=== PATIENT | female | born 1945 | race Caucasian/White ===

== ENCOUNTER → 2020-05-06 | Outpatient (CLI) | payer MEDICARE ==
--- NOTE | 2020-05-06 17:06 | RADIOLOGY REPORT (SQ) ---
EXAM DESCRIPTION: FOOT RIGHT COMPLETE IMAGES COMPLETED DATE/TIME: 05/06/2020 4:39 pm REASON FOR STUDY: CHRONIC MULTIFOCAL OSTEOMYELITIS, RIGHT ANKLE AND FOOT M86.371 CHRONIC MULTIFOCAL OSTEOMYELITIS, RIGHT ANKLE AND FO COMPARISON: None. NUMBER OF VIEWS: Three views. TECHNIQUE: AP, lateral and oblique radiographic images acquired of the right foot. LIMITATIONS: None. FINDINGS: MINERALIZATION: Normal. BONES: No acute fracture or dislocation. No worrisome bone lesions. JOINTS: There appear to be Charcot joints in the tarsal bones. There are some areas of heterogeneous mineralization in the base of the 5th metatarsal and in the cuboid. SOFT TISSUES: No soft tissue swelling. No foreign body. OTHER: No other significant finding. IMPRESSION: Cannot exclude osteomyelitis in the 5th metatarsal and possibly the cuboid. Joint goldberg es in the tarsal bones. TECHNICAL DOCUMENTATION: JOB ID: [id number] 2010 [employer]- All Rights Reserved Reading location - IP/workstation name: [email or web address]
== END ==
LOC: OD 16:06
PROVIDERS: ATTEND Podiatrist Foot & Ankle Surgery
DX: M86.371 Chronic multifocal osteomyelitis, right ankle and foot (principal)

== ENCOUNTER → 2020-05-13 | Outpatient (CLI) | payer MEDICARE ==
[2020-05-13 12:28] LABS: ABSOLUTE BASOPHILS # (AUTO) 0.1 10^3/uL (0.0-0.2); ABSOLUTE EOSINOPHILS # (AUTO) 0.1 10^3/uL (0.0-0.6); ABSOLUTE LYMPHOCYTES (AUTO) 1.1 10^3/uL (0.5-4.7); ABSOLUTE MONOCYTES (AUTO) 0.5 10^3/uL (0.1-1.4); ABSOLUTE NEUT (AUTO) 6.8 10^3/uL (1.7-8.2); BASOPHILS % (AUTO) 0.6 % (0-2); EOSINOPHILS % (AUTO) 0.9 % (0-6); HEMATOCRIT 37.7 % (36.0-47.0); HEMOGLOBIN 13.2 g/dL (12.0-15.5); LYMPHOCYTES % (AUTO) 13.2 % (13-45); MEAN CORPUSCULAR HEMOGLOBIN 30.5 pg (27.0-33.4); MEAN CORPUSCULAR VOLUME 87 fl (80-97); MONOCYTES % (AUTO) 6.2 % (3-13); PLATELET COUNT 270 10^3/uL (150-450); RED BLOOD COUNT 4.33 10^6/uL (3.72-5.28); RED CELL DISTRIBUTION WIDTH 12.8 % (11.5-14.0); SEGMENTED NEUTROPHILS % (AUTO) 79.1 % (42-78); TOTAL CELLS COUNTED % (AUTO) 100 %; WHITE BLOOD COUNT 8.6 10^3/uL (4.0-10.5)
[2020-05-13 12:48] LABS: ALBUMIN 4.3 g/dL (3.5-5.0); ALKALINE PHOSPHATASE 118 U/L (38-126); ANION GAP 11 (5-19); ASPARTATE AMINO TRANSFERASE 25 U/L (14-36); BILIRUBIN,DIRECT 0.3 mg/dL (0.0-0.4); BILIRUBIN,TOTAL 0.5 mg/dL (0.2-1.3); BLOOD UREA NITROGEN 29 mg/dL (7-20); CALCIUM 9.8 mg/dL (8.4-10.2); CARBON DIOXIDE 26 mmol/L (22-30); CHLORIDE 103 mmol/L (98-107); GLUCOSE 157 mg/dL (75-110); POTASSIUM 4.3 mmol/L (3.6-5.0); TOTAL PROTEIN 7.8 g/dL (6.3-8.2)
[2020-05-13 13:05] LABS: ERYTHROCYTE SEDIMENTATION RATE 51 mm/hr (0-30)
== END ==
LOC: WC 11:25
PROVIDERS: ATTEND Preventive Medicine Undersea and Hyperbaric Medicine
DX: E11.621 Type 2 diabetes mellitus with foot ulcer (principal); L97.512 Non-pressure chronic ulcer of other part of right foot with fat layer exposed
CPT/HCPCS: 36415; 80053; 83036; 85025; 85652; 86140

== ENCOUNTER → 2020-05-28 | Outpatient (CLI) | payer MEDICARE ==
[2020-05-28 09:25] LABS: ALBUMIN 4.2 g/dL (3.5-5.0); ALKALINE PHOSPHATASE 103 U/L (38-126); ANION GAP 9 (5-19); ASPARTATE AMINO TRANSFERASE 22 U/L (14-36); BILIRUBIN,DIRECT 0.3 mg/dL (0.0-0.4); BILIRUBIN,TOTAL 0.6 mg/dL (0.2-1.3); BLOOD UREA NITROGEN 30 mg/dL (7-20); CALCIUM 9.9 mg/dL (8.4-10.2); CARBON DIOXIDE 27 mmol/L (22-30); CHLORIDE 102 mmol/L (98-107); CHOLESTEROL 154.92 mg/dL (0-200); GLUCOSE 113 mg/dL (75-110); POTASSIUM 4.2 mmol/L (3.6-5.0); TOTAL PROTEIN 7.5 g/dL (6.3-8.2); TRIGLYCERIDES 61 mg/dL (<150)
[2020-05-28 09:36] LABS: DIRECT LDL 45 mg/dL (<100)
[2020-05-28 09:39] LABS: FREE T4 (FREE THYROXINE) 1.48 ng/dL (0.78-2.19)
[2020-05-28 09:53] LABS: THYROID STIMULATING HORMONE 2.1 uIU/mL (0.47-4.68)
== END ==
LOC: OD 08:03
PROVIDERS: ATTEND Physician Assistant
DX: E11.69 Type 2 diabetes mellitus with other specified complication (principal); E55.9 Vitamin D deficiency, unspecified; E78.2 Mixed hyperlipidemia; E03.9 Hypothyroidism, unspecified
CPT/HCPCS: 36415; 80053; 80061; 82306; 84439; 84443; 84681

== ENCOUNTER → 2020-05-31 | Outpatient (CLI) | payer MEDICARE ==
--- NOTE | 2020-05-31 16:41 | RADIOLOGY REPORT (SQ) ---
EXAM DESCRIPTION: ARTERIAL LOWER EXTREM BILAT IMAGES COMPLETED DATE/TIME: 05/31/2020 2:46 pm REASON FOR STUDY: RT FOOT ULCER L97.512 NON-PRS CHRONIC ULCER OTH PRT RIGHT FOOT W FAT LAYER COMPARISON: None. TECHNIQUE: Dynamic and static mittal scale and color images acquired of the lower extremity arteries. Additional selected spectral images recorded. ABIs recorded. LIMITATIONS: None. FINDINGS: RIGHT LEG: ABIS: 0.89-1.07 INFLOW ARTERIES: Normal, no obstruction evident. FEMORAL ARTERIES:Common femoral artery demonstrates triphasic waveform. Profunda origin is patent wi th multiphasic flow. Femoral artery demonstrates multiphasic waveform. There is a area of increased velocity within the mid SFA with elevated velocity of 234 cm/sec suggestive of 50 to 74% stenosis.. Additional area of increased velocity within the distal SFA of 171 cm/sec suggestive of approximately 50% stenosis. No aneurysm. POPLITEAL ARTERY:Biphasic waveform without high-grade stenosis.. No aneurysm. PATENT TIBIOPERONEAL TRUNK AND 3 VESSEL RUNOFF: Tibioperoneal trunk is patent. Anterior tibial arter y is patent with biphasic waveform. No focal stenosis. Monophasic flow within the dorsalis pedis. TBI: Not performed. OTHER: No other significant finding. LEFT LEG: ABIS: 1.25-1.34 possibly falsely elevated due to vessel calcification. INFLOW ARTERIES: Normal, no obstruction evident. FEMORAL ARTERIES:Common femoral artery demonstrates biphasic inflow. Profunda origin is patent. SFA demonstrates biphasic waveform with area of increased velocity within the distal SFA of 201 cm/sec s uggestive of less than 50% stenosis.. No aneurysm. POPLITEAL ARTERY:Patent with multiphasic waveform. No high-grade stenosis.. No aneurysm. PATENT TIBIOPERONEAL TRUNK AND 3 VESSEL RUNOFF: Tibioperoneal trunk is patent. Multiphasic tibial ru noff without high-grade stenosis. Multiphasic dorsalis pedis. TBI: Not performed. OTHER: No other significant finding. IMPRESSION: Right: 1. Triphasic inflow. ABIs 0.89-1.07. 2. 2 areas of stenosis within the mid and distal femoral artery with velocity of 234 cm/sec suggesti ve of 50 to 74% stenosis. 3. Biphasic distal runoff. Left: 1. Multiphasic inflow. ABIs greater than 1. 2. Elevated velocity within the distal SFA suggestive of less than 50% stenosis. 3. Multiphasic distal runoff. COMMENT: COUNT INCLUDES THE [facility] NORMAL: Greater than 1.0 MINIMAL DISEASE: 0.9 to 1.0 CLAUDICATION: 0.5 to 0.9 SEVERE ARTERIAL DISEASE: Less than 0.5 [facility] NORMAL: Greater than 1.0 (1.2 If Heavy Calcifications) NORMAL TO MILD ISCHEMIA: 0.8 to 1.0 MODERATE ISCHEMIA: 0.4 to 0.8 SEVERE ISCHEMIA: Less than 0.4 TECHNICAL DOCUMENTATION: JOB ID: [id number] 2010 [employer]- All Rights Reserved Reading location - IP/workstation name: [email or web address]
--- NOTE | 2020-05-31 16:45 | RADIOLOGY REPORT (SQ) ---
EXAM DESCRIPTION: PHYSIO ARTERIAL LTD COMPLETE DATE/TIME: 05/31/2020 2:46 pm REASON FOR STUDY: RT FOOT ULCER L97.512 NON-PRS CHRONIC ULCER OTH PRT RIGHT FOOT W FAT LAYER FINDINGS: Please see combined report for radiologic interpretation. IMPRESSION: Please see combined report for radiologic interpretation. Reading location - IP/workstation name: [email or web address]
== END ==
LOC: SP 12:49
PROVIDERS: ATTEND Preventive Medicine Undersea and Hyperbaric Medicine
DX: L97.512 Non-pressure chronic ulcer of other part of right foot with fat layer exposed (principal); I70.202 Unspecified atherosclerosis of native arteries of extremities, left leg; I70.291 Other atherosclerosis of native arteries of extremities, right leg
CPT/HCPCS: 93922; 93925

== ENCOUNTER 2020-06-14 07:18 | Inpatient (IN) | payer MEDICARE ==
[2020-06-14] MEDS ORDERED: DEXTROSE 50%-WATER 25 GM/50 ML DISP.SYRIN IV ONE ×8 (07:26→18:57)
--- NOTE | 2020-06-14 07:35 | ER Document Report ---
ED Medical Screen (RME) - General Chief Complaint: Low Blood Sugar Stated Complaint: LOW BLOOD SUGAR Time Seen by Provider: 06/14/20 07:29 Primary Care Provider: PRADIP FONG PA-C [Primary Care Provider] - Follow up as needed Notes: 74-year-old female comes from EMS from home where she was found down by roommate, patient found to have glucose in the 30s, given oral glucose on the way here, rechecked in the 100s, recheck here back down in the 50s. Patient is able to tell me her location but is unable to tell me the events. She has a history of diabetes and is on Lantus and Humalog. Physical Exam - Neurological Orientation: Disoriented to time, Disoriented to events. No: Disoriented to person, Disoriented to place [place] Coma Scale Eye Opening: Spontaneous Earlene Coma Scale Verbal: Confused Earlene Coma Scale Motor: Obeys Commands Earlene Coma Scale Total: 14 Course - Re-evaluation Re-evalutation: Patient is sluggish on my evaluation. She is able to answer questions and cooperate however. She has pinpoint pupils but she is not reportedly on opiates. Patient is hypothermic but this could be from the hypoglycemia. However because patient was given oral glucose and is immediately back down into the 50s patient will be given dextrose and work-up will be performed including cardiac and septic for potential other causes of hypoglycemia. GCS of 14. Triage level 2. I have greeted and performed a rapid initial assessment of this patient. A comprehensive ED assessment and evaluation of the patient, analysis of test results and completion of the medical decision making process will be conducted by additional ED providers. Doctor's Discharge - Discharge Referrals: PRADIP FONG PA-C [Primary Care Provider] - Follow up as needed
[2020-06-14 07:48] LABS: INTERNATIONAL RATION (INR) 1.01; PROTHROMBIN TIME 13.5 SEC (11.4-15.4)
[2020-06-14 07:52] LABS: VENOUS BLOOD BASE EXCESS -2.6 mmol/L; VENOUS BLOOD HCO3 25.9 mmol/L (20-32); VENOUS BLOOD PH 7.25 (7.30-7.42)
[2020-06-14 07:55] LABS: HEMOGLOBIN 13.7 g/dL (12.0-15.5); MEAN CORPUSCULAR HEMOGLOBIN 29.5 pg (27.0-33.4); MEAN CORPUSCULAR HGB CONC 33.4 g/dL (32.0-36.0); MEAN CORPUSCULAR VOLUME 88 fl (80-97); PLATELET COUNT 320 10^3/uL (150-450); RED BLOOD COUNT 4.65 10^6/uL (3.72-5.28); WHITE BLOOD COUNT 14.4 10^3/uL (4.0-10.5)
[2020-06-14 08:11] LABS: ALBUMIN 4.2 g/dL (3.5-5.0); ALKALINE PHOSPHATASE 116 U/L (38-126); ANION GAP 15 (5-19); ASPARTATE AMINO TRANSFERASE 36 U/L (14-36); BILIRUBIN,DIRECT 0.4 mg/dL (0.0-0.4); BILIRUBIN,TOTAL 0.7 mg/dL (0.2-1.3); BLOOD UREA NITROGEN 41 mg/dL (7-20); CALCIUM 10.5 mg/dL (8.4-10.2); CARBON DIOXIDE 24 mmol/L (22-30); CHLORIDE 100 mmol/L (98-107); CREATINE KINASE 104 U/L (30-135); POTASSIUM 3.4 mmol/L (3.6-5.0); TOTAL PROTEIN 7.8 g/dL (6.3-8.2)
[2020-06-14 08:18] LABS: ABSOLUTE LYMPHOCYTES# (MANUAL) 0.6 10^3/uL (0.5-4.7); ABSOLUTE MONOCYTES # (MANUAL) 0.7 10^3/uL (0.1-1.4); BASOPHILS % (MANUAL) 0 % (0-2); EOSINOPHILS % (MANUAL) 0 % (0-6); LYMPHOCYTES % (MANUAL) 4 % (13-45); MONOCYTES % (MANUAL) 5 % (3-13); SEGMENTED NEUTROPHILS % (MAN) 91 % (42-78); TOTAL CELLS COUNTED 100
[2020-06-14 08:21] LABS: GLUCOSE 36 mg/dL (75-110)
[2020-06-14 08:22] LABS: RBC MORPHOLOGY COMMENT NORMO-CYTIC/CHROMIC
[2020-06-14 08:24] LABS: APPEARANCE,URINE CLEAR; BILIRUBIN,URINE NEGATIVE (NEGATIVE); COLOR,URINE YELLOW; GLUCOSE, URINE 50 mg/dL (NEGATIVE); KETONES,URINE NEGATIVE (NEGATIVE); PROTEIN,URINE NEGATIVE (NEGATIVE); URINE SPECIFIC GRAVITY 1.012; UROBILINOGEN,URINE NEGATIVE mg/dL (<2.0)
[2020-06-14 08:24] LABS: PLATELET CLUMPS PRESENT
--- NOTE | 2020-06-14 08:24 | RADIOLOGY REPORT (SQ) ---
EXAM DESCRIPTION: CHEST SINGLE VIEW IMAGES COMPLETED DATE/TIME: 06/14/2020 8:15 am REASON FOR STUDY: hypothermia, syncopal episode COMPARISON: None. EXAM PARAMETERS: NUMBER OF VIEWS: One view. TECHNIQUE: Single frontal radiographic view of the chest acquired. RADIATION DOSE: NA LIMITATIONS: None. FINDINGS: LUNGS AND PLEURA: No opacities, masses or pneumothorax. No pleural effusion. MEDIASTINUM AND HILAR STRUCTURES: No masses. Contour normal. HEART AND VASCULAR STRUCTURES: Heart normal in size. Normal vasculature. BONES: No acute findings. HARDWARE: None in the chest. OTHER: No other significant finding. IMPRESSION: NO ACUTE RADIOGRAPHIC FINDING IN THE CHEST. TECHNICAL DOCUMENTATION: JOB ID: [id number] 2010 [employer]- All Rights Reserved Reading location - IP/workstation name: [email or web address]
[2020-06-14 08:25] LABS: PLATELET COMMENT ADEQUATE
[2020-06-14] MEDS ORDERED: ONDANSETRON HCL INJ/PF 4 MG/2 ML SDV IV ONE (08:30)
[2020-06-14] MEDS ORDERED: ONDANSETRON HCL INJ/PF 4 MG/2 ML SDV ONE (08:31)
--- NOTE | 2020-06-14 08:46 | RADIOLOGY REPORT (SQ) ---
EXAM DESCRIPTION: CT HEAD WITHOUT IMAGES COMPLETED DATE/TIME: 06/14/2020 8:32 am REASON FOR STUDY: fall, injury? COMPARISON: None. TECHNIQUE: Axial images acquired through the brain without intravenous contrast. Images reviewed wi th bone, brain and subdural windows. Additional sagittal and coronal reconstructions were generated. Images stored on PACS. All CT scanners at this facility use dose modulation, iterative reconstruction, and/or weight based d osing when appropriate to reduce radiation dose to as low as reasonably achievable (ALARA). [facility]: Dose Right [facility]: CareDose [facility]: Dose Right [facility]: Teradose 4D [facility]: [employer] RADIATION DOSE: CT Rad equipment meets quality standard of care and radiation dose reduction techniq ues were employed. CTDIvol: 53.2 mGy. DLP: 1017 mGy-cm. mGy. LIMITATIONS: None. FINDINGS: VENTRICLES: Age appropriate. CEREBRUM: No masses. No hemorrhage. No midline shift. No evidence for acute infarction. Normal gra y/white matter differentiation. No areas of low density in the white matter. CEREBELLUM: No masses. No hemorrhage. No alteration of density. No evidence for acute infarction. EXTRAAXIAL SPACES: No fluid collections. No masses. Mild involutional change. ORBITS AND GLOBE: No intra- or extraconal masses. Normal contour of globe without masses. CALVARIUM: No fracture. PARANASAL SINUSES: No fluid or mucosal thickening. SOFT TISSUES: No mass or hematoma. OTHER: No other significant finding. IMPRESSION: NO ACUTE INTRACRANIAL IMAGING FINDINGS. EVIDENCE OF ACUTE STROKE: NO. COMMENT: Quality ID # [id number]: Final reports with documentation of one or more dose reduction techniques (e.g., Automated exposure control, adjustment of the mA and/or kV according to patient size, use of iterative reconstruction technique) TECHNICAL DOCUMENTATION: JOB ID: [id number] 2010 [employer]- All Rights Reserved Reading location - IP/workstation name: [email or web address]
--- NOTE | 2020-06-14 08:51 | RADIOLOGY REPORT (SQ) ---
EXAM DESCRIPTION: CT CERVICAL SPINE WITHOUT IMAGES COMPLETED DATE/TIME: 06/14/2020 8:31 am REASON FOR STUDY: fall, injury? COMPARISON: None. TECHNIQUE: Axial images acquired through the cervical spine without intravenous contrast. Images re viewed with lung, soft tissue and bone windows. Reconstructed coronal and sagittal MPR images review ed. Images stored on PACS. All CT scanners at this facility use dose modulation, iterative reconstruction, and/or weight based d osing when appropriate to reduce radiation dose to as low as reasonably achievable (ALARA). [facility]: Dose Right [facility]: CareDose [facility]: Dose Right [facility]: Teradose 4D [facility]: [employer] RADIATION DOSE: CT Rad equipment meets quality standard of care and radiation dose reduction techniq ues were employed. CTDIvol: 17.0 mGy. DLP: 316 mGy-cm. mGy. LIMITATIONS: None. FINDINGS: ALIGNMENT: Exaggerated cervical lordosis. MINERALIZATION: Normal. VERTEBRAL BODIES: No fractures or dislocation. DISCS: Multilevel degenerative change with disc osteophyte complexes causing ezmy-qu-whzulmvs osseous canal narrowing, greatest at C4-5 and C5-6. FACETS, LATERAL MASSES, POSTERIOR ELEMENTS: No facet fracture dislocation. Uncovertebral hypertrophy with mild multilevel osseous neural foraminal narrowing. HARDWARE: None in the spine. VISUALIZED RIBS: No fractures. LUNG APICES AND SOFT TISSUES: No significant or acute findings. OTHER: No other significant finding. IMPRESSION: Mild multilevel degenerative change without evidence of acute bony abnormality of the ce rvical spine. TECHNICAL DOCUMENTATION: JOB ID: [id number] Quality ID # [id number]: Final reports with documentation of one or more dose reduction techniques (e.g., Au tomated exposure control, adjustment of the mA and/or kV according to patient size, use of iterative reconstruction technique) 2010 [employer]- All Rights Reserved Reading location - IP/workstation name: [email or web address]
[2020-06-14] MEDS ORDERED: IMIPENEM/CILASTATIN SODIUM INJ 500 MG VIAL IV ONE (08:57)
[2020-06-14] MEDS ORDERED: DEXTROSE 10%-1/4 NORMAL SALINE 250 ML IV ONE (09:08)
--- NOTE | 2020-06-14 09:29 | ER Document Report ---
ED General - General Chief Complaint: Low Blood Sugar Stated Complaint: LOW BLOOD SUGAR Time Seen by Provider: 06/14/20 07:29 Primary Care Provider: PRADIP FONG PA-C [Primary Care Provider] - Follow up as needed - [facility] Notes: Chief complaint: Altered mental status/syncope History of present illness: 74-year-old female with a history of diabetes mellitus type 2 and a chronic osteomyelitis of her right foot with a persistent ulceration of the plantar surface which has been treated by wound care clinic. Patient's roommates noted that she slept in a chair at a desk last night and apparently fell out of the chair this morning. They found her semiresponsive on the floor and called EMS for transport here. They note that patient has been "not herself" over the last several days. She is not eating and drinking and his seem mildly confused. Medical history is also remarkable for history of hypertension. She is followed by [facility] internal medicine. She is just relocated here from the [facility]. - Related Data Allergies/Adverse Reactions: bacitracin [From Neosporin ([id number])] Allergy (Verified 06/14/20 08:55) neomycin [From Neosporin ([id number]-tmu-vftdz)] Allergy (Verified 06/14/20 08:55) Penicillins Allergy (Verified 06/14/20 08:55) polymyxin B [From Neosporin ([id number]-gjl-[id number])] Allergy (Verified 06/14/20 08:55) Home Medications: atorvastatin. folic acid. humalog. lantus. magnesium oxide. prasugrel Past Medical History - General Information source: Patient, Friend, [facility] Records - Social History Smoking Status: Never Smoker Frequency of alcohol use: None Drug Abuse: None Lives with: Friend Family History: Reviewed & Not Pertinent - Past Medical History Cardiac Medical History: Reports: Hx Hypercholesterolemia, Hx Hypertension Endocrine Medical History: Reports: Hx Diabetes Mellitus Type 2 Past Surgical History: Reports: Hx Orthopedic Surgery - l foot amputation, r foot toes removal, Review of Systems - Review of Systems -: Yes ROS unobtainable due to patient's medical condition Physical Exam - Vital signs Vitals: Resp Pulse Ox 16 98 06/14/20 07:19 06/14/20 07:19 - Notes Notes: GENERAL: Frail elderly female appearing acutely and chronically ill. SKIN: Pale and cool. Good turgor no rashes. HEAD: Normocephalic atraumatic. EYES: PERRLA. EOMI. Conjunctivae and sclerae clear. EARS: CANALS AND TMS CLEAR. NOSE: CLEAR. MOUTH: Dry oral mucosa. Good dentition. No stridor or edema. No drooling. NECK: Supple. No masses or thyromegaly. No adenopathy. Carotids 2+ without bruits. No JVD. BACK: Symmetrical without tenderness. CHEST: Respirations unlabored. Breath sounds clear and symmetrical. HEART: Regular rhythm. No murmur gallop or rub. ABDOMEN: Soft nontender without masses, organomegaly or rebound. Bowel sounds normally active. No bruits. GENITALIA: Normal female. EXTREMITIES: Patient arrived with a cast on the right lower extremity this was removed. 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 Patient has shallow ulceration over the plantar surface of the right foot with some early drainage. Cap refill less than 1.5 seconds. Dorsalis pedis and posterior tibial pulses 3+ and symmetrical. NEUROLOGICAL: GCS 15. Alert and oriented x3. Normal gait. Fluent speech. Cranial nerves II through XII intact. Sensorimotor and cerebellar normal. Normal tone. PSYCHIATRIC: Appropriate affect. Course - Re-evaluation Re-evalutation: 06/14/20 10:49 Patient is mildly hypothermic, hypoglycemic altered mental status and clinically I felt she is likely to be septic. 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 This is felt the likely source of her infection. Chest x-ray normal. Urinalysis unremarkable. White count 14,000. Normal hemoglobin. X- ray shows no infiltrate. Patient had a fall at home and was found lying on the floor. We did a noncontrast CT of the C-spine which showed degenerative changes only per radiologist. She also had a noncontrast head which showed no acute changes per radiologist. Sepsis protocol has been initiated. Blood cultures drawn. 30 cc/kg lactated Ringer's bolus requested. Temperature Green inserted. IV imipenem. Findings reviewed with the on-call train director Dr. Gomez who will evaluate patient for admission to ICU at this time. - Vital Signs Vital signs: Temp Pulse Resp BP Pulse Ox 96.6 F L 11 L 86/28 L 94 06/14/20 12:01 06/14/20 12:01 06/14/20 12:00 06/14/20 12:01 - Laboratory Result Diagrams: 06/14/20 07:25 06/14/20 07:25 Laboratory results interpreted by me: 06/14/20 06/14/20 06/14/20 07:22 07:25 07:25 WBC 14.4 H Seg Neuts % (Manual) 91 H Lymphocytes % (Manual) 4 L Abs Neuts (Manual) 13.1 H VBG pH Potassium 3.4 L BUN 41 H Est GFR ( Amer) 51 L Est GFR (MDRD) Non-Af 42 L Glucose 36 L* POC Glucose 51 L Lactic Acid Calcium 10.5 H Urine Glucose (UA) Urine Blood 06/14/20 06/14/20 06/14/20 07:25 07:25 07:40 WBC Seg Neuts % (Manual) Lymphocytes % (Manual) Abs Neuts (Manual) VBG pH 7.25 L Potassium BUN Est GFR ( Amer) Est GFR (MDRD) Non-Af Glucose POC Glucose Lactic Acid 2.5 H Calcium Urine Glucose (UA) 50 H Urine Blood SMALL H 06/14/20 06/14/20 07:49 08:48 WBC Seg Neuts % (Manual) Lymphocytes % (Manual) Abs Neuts (Manual) VBG pH Potassium BUN Est GFR ( Amer) Est GFR (MDRD) Non-Af Glucose POC Glucose 146 H 45 L Lactic Acid Calcium Urine Glucose (UA) Urine Blood - Diagnostic Test Radiology reviewed: Reports reviewed - As indicated in comments above. - EKG Interpretation by Me Additional EKG results interpreted by me: 06/14/20 10:51 Twelve-lead EKG reviewed by me contemporaneously: 0754 hrs. Indication for study: Sepsis Rhythm: Normal sinus Rate: 61 Intervals: Normal QRS axis: -[address]/T wave changes: None Comparison with prior tracing: None Interpretation: Normal tracing Critical Care Note - Critical Care Note Total time excluding time spent on procedures (mins): 90 - Sepsis. Sepsis protocol initiated. Discharge - Discharge Clinical Impression: Sepsis associated hypotension, Diabetic foot infection Condition: Critical Disposition: ADMITTED INPATIENT Admitting Provider: Patricia (Peanut Farmer) Unit Admitted: ICU Referrals: PRADIP FONG PA-C [Primary Care Provider] - Follow up as needed
--- NOTE | 2020-06-14 09:40 | EKG REPORT ---
SEVERITY:- ABNORMAL ECG - SINUS RHYTHM PROBABLE LEFT VENTRICULAR HYPERTROPHY PROLONGED QT INTERVAL : Confirmed by: Sixto Malhotra MD 14-Jun-2020 09:40:14
[2020-06-14] MEDS ORDERED: METOCLOPRAMIDE HCL INJ/PF 10 MG/2 ML SDV IV ONE (09:44)
[2020-06-14] MEDS ORDERED: RINGERS LACTATED IV ONE (10:20)
--- NOTE | 2020-06-14 10:28 | RADIOLOGY REPORT (SQ) ---
EXAM DESCRIPTION: FOOT RIGHT COMPLETE IMAGES COMPLETED DATE/TIME: 06/14/2020 10:12 am REASON FOR STUDY: wound COMPARISON: 05/06/2020 NUMBER OF VIEWS: Three views. TECHNIQUE: AP, lateral and oblique radiographic images acquired of the right foot. LIMITATIONS: None. FINDINGS: MINERALIZATION: Decreased. BONES: No acute fracture. Significant degenerative changes about the midfoot with midfoot collapse, osteophytosis, subchondral sclerosis and joint space loss. Additional degenerative changes at the in terphalangeal joints. Small plantar and superior calcaneal enthesophytes. No definitive cortical de struction or osseous erosion. Unchanged dysmorphic proximal 4th phalanx. JOINTS: As above. SOFT TISSUES: Soft tissue vascular calcifications. No radiopaque foreign body. OTHER: No other significant finding. IMPRESSION: 1. No definite evidence of acute bony abnormality or definitive findings of osteomyelit is. 2. Midfoot collapse with significant degenerative changes suggestive of Charcot joint. TECHNICAL DOCUMENTATION: JOB ID: [id number] 2010 [employer]- All Rights Reserved Reading location - IP/workstation name: [email or web address]
[2020-06-14] MEDS ORDERED: RINGERS SOLUTION,LACTATED 1,000 ML IV PRN ×2 (11:44→15:04)
--- NOTE | 2020-06-14 11:44 | CRITICAL CARE ADMISSION REPORT ---
HPI Date:: 06/14/20 Time:: 11:00 Reason for ICU Reason:: HYpotension, possible need for pressors. Admission Date/Time & PCP: Admission Date/Time: Primary Care Provider: PRADIP FONG PA-C HPI: This patient is a 74 yo woman with DM-II for over 40 years and has [facility] about a [facility] for a R foot diabetic ulcer. She has been debrided more than once. She started to get a bit confused Staturday, 2 days ago. She apparently slept in a chair last night and was much more confused. She vomited in the ED and soon after her BP dropped into the 80s. Likely aspirated. She is confused, has flat affect and 'not herself' according to friend. Her BG was 36 at the house. Eating and drinking well until last night. She would likely benefit from a stay in the ICU given her BP, temp of 92, c onfusion and chance of worsening as she has not gotten better in the ED. History obtained from:: Sandee, alba, Dr. Farris. - Diagnosis/Plan (1) Sepsis associated hypotension Is this a current diagnosis for this admission?: Yes Plan: She has a WBC 14. Temp of 94 so she meets criteria for SIRS. With a known foot infection and no other source, this is considered sepsis and she is receiving the sepsis protocol. Will provide IV antibiotics (2) Diabetic foot infection Is this a current diagnosis for this admission?: Yes Plan: This has been present for about a month. I also believe she would benefit from surgical input for deeper debridement. I do not sense osteomyelitis but she will need a foot MRI. (3) Hypothermia Is this a current diagnosis for this admission?: Yes Plan: Her temp of 94 is mild hypothermia and a criteria for SIRS. (4) Hypoglycemia associated with diabetes Is this a current diagnosis for this admission?: Yes Plan: She had a BG of 36 which has come up since glucose gel at the house. (5) Aspiration into airway Qualifiers: Encounter type: initial encounter Qualified Code(s): T17.908A - Unspecified foreign body in respiratory tract, part unspecified causing other injury, initial encounter Is this a current diagnosis for this admission?: Yes Plan: She did vomit and her BP dropped soon after this according to the friend. Aspi ration is a distinct possibility even though her lungs are clear. Plan Summary: She has not any problem requiring the ICU, but given the number of issues, her confusion and the fact that she has worsened here, a placement in the ICU is not unreasonable. Past Medical History Cardiac Medical History: Reports: Hyperlipidema, Hypertension Endocrine Medical History: Reports: Diabetes Mellitus Type 2 Musculoskeltal Medical History: Reports: Other - Neuropathy of both feet. Past Surgical History Past Surgical History: Reports: Amputation - Transmetatasal on L. 9 Years ago., Orthopedic Surgery - l foot amputation, r foot toes removal, Social/Family History - Social History Lives with: Friend Smoking Status: Never Smoker - Medication/Allergies Home Medications: Atorvastatin Calcium [Lipitor 20 mg Tablet] 20 mg PO QHS 06/14/20 Levothyroxine Sodium [Synthroid 0.075 mg Tablet] 0.075 mg PO Q6AM 06/14/20 Losartan/Hydrochlorothiazide [Losartan-Hctz 50-12.5 mg Tab] 1 each PO DAILY 06/14/20 Prasugrel HCl [Effient 10 mg Tablet] 10 mg PO DAILY 06/14/20 Allergies/Adverse Reactions: bacitracin [From Neosporin ([id number])] Allergy (Verified 06/14/20 08:55) neomycin [From Neosporin ([id number])] Allergy (Verified 06/14/20 08:55) Penicillins Allergy (Verified 06/14/20 08:55) polymyxin B [From Neosporin ([id number])] Allergy (Verified 06/14/20 08:55) Review of Systems ROS unobtainable: Due to mental status Review of Systems: Not reliable. Physical Exam Vital Signs: Temp Pulse Resp BP Pulse Ox 95.7 F L 12 85/33 L 96 06/14/20 11:01 06/14/20 11:01 06/14/20 11:00 06/14/20 11:01 Intake & Output 06/13/20 06/14/20 06/15/20 06:59 06:59 06:59 Weight 66.1 kg Weight/Height Weight 66.1 kg Height 5 ft 5 in General appearance: PRESENT: no acute distress, thin, well-nourished Head exam: PRESENT: atraumatic, normocephalic Eye exam: PRESENT: conjunctiva pink, EOMI, PERRLA. ABSENT: scleral icterus Ear exam: PRESENT: normal external ear exam Mouth exam: PRESENT: dry mucosa Respiratory exam: PRESENT: clear to auscultation noreen. ABSENT: rales, rhonchi, wheezes Cardiovascular exam: PRESENT: RRR. ABSENT: diastolic murmur, rubs, systolic murmur GI/Abdominal exam: PRESENT: normal bowel sounds, soft. ABSENT: distended, guarding, mass, organolmegaly, rebound, tenderness Rectal exam: PRESENT: deferred Extremities exam: PRESENT: other - L transmetatarsal amputation, R plantal infection with a 1x1.5 ulcer. Neurological exam: PRESENT: alert, altered, awake, CN II-XII grossly intact Psychiatric exam: PRESENT: flat affect Skin exam: PRESENT: dry, intact, warm. ABSENT: cyanosis, rash Laboratory/Radiographs Laboratory Results: 06/14/20 07:25 06/14/20 07:25 06/14/20 06/14/20 06/14/20 07:25 07:25 07:25 WBC 14.4 H RBC 4.65 Hgb 13.7 Hct 41.0 MCV 88 MCH 29.5 MCHC 33.4 RDW 13.0 Plt Count 320 Seg Neutrophils % Not Reportable VBG pH 7.25 L VBG pCO2 61.0 VBG HCO3 25.9 VBG Base Excess -2.6 Sodium 138.7 Potassium 3.4 L Chloride 100 Carbon Dioxide 24 Anion Gap 15 BUN 41 H Creatinine 1.25 Est GFR ( Amer) 51 L Glucose 36 L* Lactic Acid Calcium 10.5 H Total Bilirubin 0.7 AST 36 Alkaline Phosphatase 116 Total Protein 7.8 Albumin 4.2 Urine Color Urine Appearance Urine pH Ur Specific [place] Urine Protein Urine Glucose (UA) Urine Ketones Urine Blood Urine RBC (Auto) 06/14/20 06/14/20 07:25 07:40 WBC RBC Hgb Hct MCV MCH MCHC RDW Plt Count Seg Neutrophils % VBG pH VBG pCO2 VBG HCO3 VBG Base Excess Sodium Potassium Chloride Carbon Dioxide Anion Gap BUN Creatinine Est GFR ( Amer) Glucose Lactic Acid 2.5 H Calcium Total Bilirubin AST Alkaline Phosphatase Total Protein Albumin Urine Color YELLOW Urine Appearance CLEAR Urine pH 6.0 Ur Specific [place] 1.012 Urine Protein NEGATIVE Urine Glucose (UA) 50 H Urine Ketones NEGATIVE Urine Blood SMALL H Urine RBC (Auto) 1 11/02/20 11/02/20 07:25 07:25 Creatine Kinase 104 Troponin I < 0.012 Impressions: Chest X-Ray 06/14/20 07:29 IMPRESSION: NO ACUTE RADIOGRAPHIC FINDING IN THE CHEST. Head CT 06/14/20 07:31 IMPRESSION: NO ACUTE INTRACRANIAL IMAGING FINDINGS. EVIDENCE OF ACUTE STROKE: NO. Cervical Spine CT 06/14/20 07:32 IMPRESSION: Mild multilevel degenerative change without evidence of acute bony abnormality of the cervical spine. Foot X-Ray 06/14/20 09:07 IMPRESSION: 1. No definite evidence of acute bony abnormality or definitive findings of osteomyelitis. 2. Midfoot collapse with significant degenerative changes suggestive of Charcot joint. EKG: SR with LVH. All labs, radiographs, diagnostic studies and EKGs were personally reviewed: Yes In addition, reports of radiographic and diagnostic studies were read: Yes Critical Time Critical Time (minutes): 40 -: The care of a critically ill patient is dynamic. This note represents a static moment in the admission process. Orders and treatments may be given simultaneously and urgently, and time is not manufacturers representative of the treatment process. This patient requires Critical Care secondary to life threatening organ or limb dysfunction. Without Critical Care services, the patient is at risk for increas ed mortality and morbidity.
[2020-06-14] MEDS ORDERED: PANTOPRAZOLE SODIUM 40 MG TABLET.DR PO SCH (13:00)
[2020-06-14] MEDS: LINEZOLID 600 MG/300 ML RTUPB IV SCH ×2 (13:22→21:14)
[2020-06-14] MEDS: CALCIUM GLUC IN NACL, ISO-OSM 1 GM/50 ML RTUPB IV SCH ×2 (13:22→14:10)
[2020-06-14] MEDS: ENOXAPARIN SODIUM INJ 40 MG/0.4 ML DISP.SYRIN SUBCUT SCH (13:22)
[2020-06-14] MEDS: PANTOPRAZOLE SODIUM 40 MG VIAL IV SCH (13:30)
[2020-06-14] MEDS: CLINDAMYCIN 600 MG/D5W RTU 600 MG/50 ML RTUPB IV SCH ×2 (14:04→21:13)
[2020-06-14] MEDS ORDERED: DEXTROSE 5%-NORMAL SALINE 1,000 ML IV PRN (15:03)
[2020-06-14] MEDS: MIDODRINE HCL 5 MG TABLET PO SCH (18:01)
[2020-06-14] MEDS ORDERED: LEVOTHYROXINE SODIUM INJ/PF 0.1 MG SDV IV ONE (18:07)
[2020-06-14] MEDS: DEXTROSE 50%-WATER 25 GM/50 ML DISP.SYRIN IV PRN ×2 (18:58→21:13)
--- NOTE | 2020-06-14 20:33 | PDOC CONSULTATION ---
Consultation Consult Date: 06/14/20 Provider Consulted: SURGICAL SURGICALIST Consult reason:: Diabetic foot infection History of Present Illness Admission Date/PCP: 06/14/20 13:07 PRADIP FONG PA-C History of Present Illness: SHERRY FINCH is a 74 year old female with a long history of "problems" with her right foot. She is seen in consultation, at the request of the thermostatic controls supervisor. The patient reports a history of chronic osteomyelitis, for the last 10 years. She has an ulcer on the plantar surface, that is cared for and debrided by the wound care clinic. She presents to the hospital for lethargy, poor appetite, somnolence, and confusion. She was found to have hypotension and hypoglycemia in the ER. She is admitted to the intensive care unit for critical care. The patient is sleepy, and minimally responsive. Much of the history is obtained from her technical operator, who is at her bedside. They deny any overt foot pain, redness, or purulent drainage. Past Medical History Cardiac Medical History: Reports: Hyperlipidema, Hypertension Endocrine Medical History: Reports: Diabetes Mellitus Type 2 Musculoskeltal Medical History: Reports: Other - Neuropathy of both feet. Psychiatric Medical History: Denies: Depression Past Surgical History Past Surgical History: Reports: Amputation - Transmetatasal on L. 9 Years ago., Orthopedic Surgery - l foot amputation, r foot toes removal, Social History Lives with: Friend Smoking Status: Never Smoker Family History Family History: Reviewed & Not Pertinent Parental Family History Reviewed: Yes Children Family History Reviewed: Yes Sibling(s) Family History Reviewed.: Yes Medication/Allergy Home Medications: Atorvastatin Calcium [Lipitor 20 mg Tablet] 20 mg PO QHS 06/14/20 Folic Acid [Folvite 1 mg Tablet] 1 mg PO DAILY 06/14/20 Insulin Aspart [Novolog Insulin 100 Unit/1 ml 10 ml] 0 unit SUBCUT .SLD SCALE 06/14/20 Insulin Glargine,Hum.rec.anlog [Lantus Insulin 100 Unit/1 ml 10 ml] 0 unit SUBCUT DAILY 06/14/20 Levothyroxine Sodium [Synthroid 0.075 mg Tablet] 0.075 mg PO Q6AM 06/14/20 Losartan/Hydrochlorothiazide [Losartan-Hctz 50-12.5 mg Tab] 1 each PO DAILY 06/14/20 Magnesium Oxide [Mag-Ox 400 mg Tablet] 400 mg PO DAILY 06/14/20 Prasugrel HCl [Effient 10 mg Tablet] 10 mg PO DAILY 06/14/20 Allergies/Adverse Reactions: bacitracin [From Neosporin ([id number])] Allergy (Verified 06/14/20 08:55) neomycin [From Neosporin ([id number])] Allergy (Verified 06/14/20 08:55) Penicillins Allergy (Verified 06/14/20 08:55) polymyxin B [From Neosporin ([id number])] Allergy (Verified 06/14/20 08:55) Review of Systems Constitutional: PRESENT: anorexia, chills, fatigue, fever(s), headache(s), weakness Eyes: ABSENT: visual disturbances Ears: ABSENT: hearing changes Nose, Mouth, and Throat: ABSENT: sore throat Cardiovascular: ABSENT: chest pain Respiratory: ABSENT: cough Gastrointestinal: ABSENT: abdominal pain, bloating Genitourinary: ABSENT: dysuria Integumentary: PRESENT: wounds - Right foot wound, chronic Neurological: PRESENT: confusion, weakness. ABSENT: convulsions Psychiatric: ABSENT: anxiety, depression Endocrine: ABSENT: cold intolerance, heat intolerance Hematologic/Lymphatic: ABSENT: easy bleeding, easy bruising Physical Exam Vital Signs: Temp Pulse Resp BP Pulse Ox 96.8 F L 96 19 111/56 L 100 06/14/20 19:55 06/14/20 14:29 06/14/20 19:00 06/14/20 18:57 06/14/20 19:00 Intake & Output 06/13/20 06/14/20 06/15/20 06:59 06:59 06:59 Intake Total 2863 Output Total 460 Balance 2403 Weight 64.4 kg General appearance: PRESENT: cooperative, other - Sleepy Head exam: PRESENT: atraumatic, normocephalic Eye exam: PRESENT: EOMI, PERRLA. ABSENT: scleral icterus Mouth exam: PRESENT: moist, neck supple Neck exam: ABSENT: meningismus, tenderness, thyromegaly, tracheal deviation Respiratory exam: PRESENT: unlabored. ABSENT: tachypnea, wheezes Cardiovascular exam: ABSENT: tachycardia Vascular exam: PRESENT: normal capillary refill GI/Abdominal exam: PRESENT: soft. ABSENT: distended, tenderness Rectal exam: PRESENT: deferred Extremities exam: PRESENT: other - Right foot with plantar ulceration. No obvious purulent drainage. No erythema. No significant tenderness. No fluctuance. Musculoskeletal exam: PRESENT: deformity - Previous transmetatarsal amputation on the left Neurological exam: PRESENT: awake Psychiatric exam: PRESENT: flat affect Focused psych exam: PRESENT: other - Sleepy/psychomotor depression Skin exam: PRESENT: other - See extremity exam. ABSENT: cyanosis, erythema, jaundice Results Laboratory Results: 06/14/20 07:25 06/14/20 07:25 06/14/20 06/14/20 06/14/20 07:25 07:25 07:25 WBC 14.4 H RBC 4.65 Hgb 13.7 Hct 41.0 MCV 88 MCH 29.5 MCHC 33.4 RDW 13.0 Plt Count 320 Seg Neutrophils % Not Reportable VBG pH 7.25 L VBG pCO2 61.0 VBG HCO3 25.9 VBG Base Excess -2.6 Sodium 138.7 Potassium 3.4 L Chloride 100 Carbon Dioxide 24 Anion Gap 15 BUN 41 H Creatinine 1.25 Est GFR ( Amer) 51 L Glucose 36 L* Lactic Acid Calcium 10.5 H Total Bilirubin 0.7 AST 36 Alkaline Phosphatase 116 Total Protein 7.8 Albumin 4.2 Urine Color Urine Appearance Urine pH Ur Specific [place] Urine Protein Urine Glucose (UA) Urine Ketones Urine Blood Urine RBC (Auto) 06/14/20 06/14/20 06/14/20 07:25 07:40 10:32 WBC RBC Hgb Hct MCV MCH MCHC RDW Plt Count Seg Neutrophils % VBG pH VBG pCO2 VBG HCO3 VBG Base Excess Sodium Potassium Chloride Carbon Dioxide Anion Gap BUN Creatinine Est GFR ( Amer) Glucose Lactic Acid 2.5 H 1.7 Calcium Total Bilirubin AST Alkaline Phosphatase Total Protein Albumin Urine Color YELLOW Urine Appearance CLEAR Urine pH 6.0 Ur Specific [place] 1.012 Urine Protein NEGATIVE Urine Glucose (UA) 50 H Urine Ketones NEGATIVE Urine Blood SMALL H Urine RBC (Auto) 1 06/14/20 13:14 WBC RBC Hgb Hct MCV MCH MCHC RDW Plt Count Seg Neutrophils % VBG pH VBG pCO2 VBG HCO3 VBG Base Excess Sodium Potassium Chloride Carbon Dioxide Anion Gap BUN Creatinine Est GFR ( Amer) Glucose Lactic Acid 1.4 Calcium Total Bilirubin AST Alkaline Phosphatase Total Protein Albumin Urine Color Urine Appearance Urine pH Ur Specific [place] Urine Protein Urine Glucose (UA) Urine Ketones Urine Blood Urine RBC (Auto) 06/14/20 06/14/20 07:25 07:25 Creatine Kinase 104 Troponin I < 0.012 Impressions: Chest X-Ray 06/14/20 07:29 IMPRESSION: NO ACUTE RADIOGRAPHIC FINDING IN THE CHEST. Head CT 06/14/20 07:31 IMPRESSION: NO ACUTE INTRACRANIAL IMAGING FINDINGS. EVIDENCE OF ACUTE STROKE: NO. Cervical Spine CT 06/14/20 07:32 IMPRESSION: Mild multilevel degenerative change without evidence of acute bony abnormality of the cervical spine. Foot X-Ray 06/14/20 09:07 IMPRESSION: 1. No definite evidence of acute bony abnormality or definitive findings of osteomyelitis. 2. Midfoot collapse with significant degenerative changes suggestive of Charcot joint. Assessment & Plan - Diagnosis (1) Chronic foot ulcer Qualifiers: Laterality: right Non-pressure ulcer stage: with fat layer exposed Qualified Code(s): L97.512 - Non-pressure chronic ulcer of other part of right foot with fat layer exposed Is this a current diagnosis for this admission?: Yes - Plan Summary Plan Summary: This is a 74-year-old diabetic female with an ulceration to her plantar right foot. The patient presents with hypotension, hypoglycemia, confusion, and a presumption of sepsis. Her foot was considered a possible source of the sepsis. At this time, I do not see significant evidence of overwhelming infection of the foot. The patient reports a history of chronic osteomyelitis, and this may still be present, however it would be unlikely for osteomyelitis to cause systemic sepsis. She has no erythema, fluctuance, or purulent drainage of the foot. I would recommend continued work-up to assess for any other potential sources of sepsis. Her x-ray does not show obvious signs of osteomyelitis, however an MRI would be more sensitive. Plan for an MRI of the right foot, once her medical condition improves. No surgical intervention is planned at this time. Surgery will follow with you.
[2020-06-15] MEDS ORDERED: DEXTROSE 5%-NORMAL SALINE 1,000 ML IV PRN ×3 (00:04→12:19)
[2020-06-15 04:10] LABS: HEMATOCRIT 32.5 % (36.0-47.0); MEAN CORPUSCULAR HEMOGLOBIN 29.7 pg (27.0-33.4); MEAN CORPUSCULAR HGB CONC 33.6 g/dL (32.0-36.0); MEAN CORPUSCULAR VOLUME 88 fl (80-97); PLATELET COUNT 271 10^3/uL (150-450); RED BLOOD COUNT 3.68 10^6/uL (3.72-5.28); RED CELL DISTRIBUTION WIDTH 13.2 % (11.5-14.0); WHITE BLOOD COUNT 18.2 10^3/uL (4.0-10.5)
[2020-06-15 04:30] LABS: ALBUMIN 2.3 g/dL (3.5-5.0); ALKALINE PHOSPHATASE 63 U/L (38-126); ANION GAP 9 (5-19); ASPARTATE AMINO TRANSFERASE 49 U/L (14-36); BILIRUBIN,DIRECT 0.2 mg/dL (0.0-0.4); BILIRUBIN,TOTAL 0.6 mg/dL (0.2-1.3); BLOOD UREA NITROGEN 36 mg/dL (7-20); CALCIUM 8.7 mg/dL (8.4-10.2); CARBON DIOXIDE 19 mmol/L (22-30); CHLORIDE 106 mmol/L (98-107); GLUCOSE 135 mg/dL (75-110); POTASSIUM 3.6 mmol/L (3.6-5.0); TOTAL PROTEIN 4.8 g/dL (6.3-8.2)
[2020-06-15 04:38] LABS: HEMOGLOBIN 10.9 g/dL (12.0-15.5)
[2020-06-15 04:42] LABS: ABSOLUTE LYMPHOCYTES# (MANUAL) 0.5 10^3/uL (0.5-4.7); ABSOLUTE MONOCYTES # (MANUAL) 1.5 10^3/uL (0.1-1.4); BAND NEUTROPHILS % (MANUAL) 5 % (3-5); BASOPHILS % (MANUAL) 0 % (0-2); EOSINOPHILS % (MANUAL) 1 % (0-6); LYMPHOCYTES % (MANUAL) 3 % (13-45); MONOCYTES % (MANUAL) 8 % (3-13); SEGMENTED NEUTROPHILS % (MAN) 83 % (42-78); TOTAL CELLS COUNTED 100
[2020-06-15 04:43] LABS: BURR CELLS SLIGHT; PLATELET COMMENT ADEQUATE; POIKILOCYTOSIS SLIGHT; TOXIC GRANULATION SLIGHT
[2020-06-15] MEDS: CLINDAMYCIN 600 MG/D5W RTU 600 MG/50 ML RTUPB IV SCH (06:11)
[2020-06-15] MEDS ORDERED: NOREPINEPHRINE BITARTRATE INJ/PF 4 MG/4 ML SDV IV ONE (06:37)
[2020-06-15] MEDS: DEXTROSE 5%-WATER 250 ML with NOREPINEPHRINE BITARTRATE 4 MG IV PRN ×4 (06:41→19:49)
[2020-06-15] MEDS: DEXTROSE 50%-WATER 25 GM/50 ML DISP.SYRIN IV PRN ×2 (08:26)
[2020-06-15] MEDS: LINEZOLID 600 MG/300 ML RTUPB IV SCH (10:36)
[2020-06-15] MEDS: PANTOPRAZOLE SODIUM 40 MG VIAL IV SCH (10:46)
[2020-06-15] MEDS: ENOXAPARIN SODIUM INJ 40 MG/0.4 ML DISP.SYRIN SUBCUT SCH (10:48)
[2020-06-15] MEDS: MIDODRINE HCL 5 MG TABLET PO SCH ×2 (10:50→18:35)
--- NOTE | 2020-06-15 11:28 | PDOC CRITICAL CARE PROG REPORT ---
General Date:: 06/15/20 ICU Day:: 2 Hospital Day:: 2 Resuscitation Status: Full Code Events in the past 12 to 24 Hours:: Still on levophed. Suicidal Review of systems relevant to events:: CV and now psychiatric. Reason for ICU Addmission:: HYpotension and needing levophed - Medications: Medications reviewed and adjusted accordingly: Yes Vasopressors:: Levophed Sedation:: None Physical Exam Vital Signs: Temp Pulse Resp BP Pulse Ox 98.4 F 69 4 L 137/45 H 100 06/15/20 10:00 06/15/20 10:00 06/15/20 11:06 06/15/20 11:06 06/15/20 11:06 Intake & Output 06/14/20 06/15/20 06/16/20 06:59 06:59 06:59 Intake Total 5638 109 Output Total 698 185 Balance 4940 -76 Weight 68.6 kg Weight/Height Weight 68.6 kg Height 5 ft 5 in General appearance: PRESENT: no acute distress, thin Head exam: PRESENT: atraumatic, normocephalic Eye exam: PRESENT: conjunctiva pink, EOMI, PERRLA. ABSENT: scleral icterus Ear exam: PRESENT: normal external ear exam Mouth exam: PRESENT: moist, tongue midline Neck exam: ABSENT: carotid bruit, JVD, lymphadenopathy, thyromegaly Respiratory exam: PRESENT: clear to auscultation noreen. ABSENT: rales, rhonchi, wheezes Cardiovascular exam: PRESENT: RRR. ABSENT: diastolic murmur, rubs, systolic murmur GI/Abdominal exam: PRESENT: normal bowel sounds, soft. ABSENT: distended, guarding, mass, organolmegaly, rebound, tenderness Rectal exam: PRESENT: deferred Gentrourinary exam: PRESENT: indwelling catheter Extremities exam: PRESENT: full ROM. ABSENT: calf tenderness, clubbing, pedal edema Musculoskeletal exam: PRESENT: normal inspection Neurological exam: PRESENT: alert, awake, CN II-XII grossly intact, other - Refuses to answer questions at times. When she does, she is oriented. Psychiatric exam: PRESENT: flat affect, suicidal ideation - She has not said this explicitely, but there is a note that the friend found suggeting an insulin OD and perhaps 'other meds' such as losartaan Skin exam: PRESENT: dry, intact, warm. ABSENT: cyanosis, rash Laboratory/Radiographs Laboratory Results: 06/15/20 03:46 06/15/20 03:46 06/14/20 06/14/20 06/15/20 10:32 13:14 03:46 WBC 18.2 H RBC 3.68 L Hgb 10.9 L D Hct 32.5 L MCV 88 MCH 29.7 MCHC 33.6 RDW 13.2 Plt Count 271 Seg Neutrophils % Not Reportable Sodium Potassium Chloride Carbon Dioxide Anion Gap BUN Creatinine Est GFR ( Amer) Glucose Lactic Acid 1.7 1.4 Calcium Total Bilirubin AST Alkaline Phosphatase Total Protein Albumin 06/15/20 03:46 WBC RBC Hgb Hct MCV MCH MCHC RDW Plt Count Seg Neutrophils % Sodium 134.3 L Potassium 3.6 Chloride 106 Carbon Dioxide 19 L Anion Gap 9 BUN 36 H Creatinine 1.51 H Est GFR ( Amer) 41 L Glucose 135 H Lactic Acid Calcium 8.7 Total Bilirubin 0.6 AST 49 H Alkaline Phosphatase 63 Total Protein 4.8 L Albumin 2.3 L 06/14/20 06/14/20 07:25 07:25 Creatine Kinase 104 Troponin I < 0.012 Impressions: Chest X-Ray 06/14/20 07:29 IMPRESSION: NO ACUTE RADIOGRAPHIC FINDING IN THE CHEST. Head CT 06/14/20 07:31 IMPRESSION: NO ACUTE INTRACRANIAL IMAGING FINDINGS. EVIDENCE OF ACUTE STROKE: NO. Cervical Spine CT 06/14/20 07:32 IMPRESSION: Mild multilevel degenerative change without evidence of acute bony abnormality of the cervical spine. Foot X-Ray 06/14/20 09:07 IMPRESSION: 1. No definite evidence of acute bony abnormality or definitive findings of osteomyelitis. 2. Midfoot collapse with significant degenerative changes suggestive of Charcot joint. EKG: Echocardiogram done and is pending. All labs, radiographs, diagnostic studies and EKGs were personally reviewed: Yes In addition, reports of radiographic and diagnostic studies were read: Yes Assessment and Plan - Diagnosis (1) Sepsis associated hypotension Is this a current diagnosis for this admission?: Yes Plan: Now that we know more information, she is not septic (2) Diabetic foot infection Is this a current diagnosis for this admission?: Yes Plan: Under treatment at wound care, no other treatment, seen by Dr. Tan. (3) Hypothermia Is this a current diagnosis for this admission?: Yes Plan: Resolved. Temp 98.6 (4) Hypoglycemia associated with diabetes Is this a current diagnosis for this admission?: Yes Plan: An insulin OD would certainly explain this. (5) Aspiration into airway Qualifiers: Encounter type: initial encounter Qualified Code(s): T17.908A - Unspecified foreign body in respiratory tract, part unspecified causing other injury, initial encounter Is this a current diagnosis for this admission?: Yes Plan: Resolved Plan Summary: Wean levophed and will be seen by phychiatry in consult. Critical Time Critical Time (minutes): 35 Level of Care: ICU Anticipated discharge: Home Anticipated DC Timeframe: Other -: 1. The care of a critical patient is a dynamic process. This note is a community service representative synopsis but static in nature. The timeframe for treatments given in order is not necessarily the actual time these treatments may have been done. 2. This patient requires critical care secondary to ongoing requirements for therapy not offered or safe outside the critical care environment. Transfer to a lower level of care will result in altered life or limb morbidity and mortality. 3. Multidisciplinary rounds completed. 4. ABCDE bundle addressed.
--- NOTE | 2020-06-15 12:22 | PDOC CONSULTATION ---
Consultation-Blank Consultation: Behavioral Health Consult: Suicidal Ideation with suicide note left and what appears to be estate planning by patient since roommates/friends/reported POA found information from [facility] with patient saying she wished to be cremated. Conducted Chart review at 1203. Obtained collateral from friend/roommate/reported POA Elaina ([phone]) in person from about [id number]. Observed patient laying in bed, quiet, with eye closed most of the time. Friend/roommate/reported POA noted the past 2 weeks patient has had increase agitation (shove plate when being provided food, argue about being late for doctor appointment, flip the Ensure in refrigerator saying I told you it's too expensive), confusion, saying she's a burden, blamed herself for friend falling/hurting self, not participating in cooking/baking which is something she loves doing, would open the refrigerator and just stare off, and has said how she wants to be with her . The night before she came to hospital friend went to go read Bible verse as they typically do before bed, patient said she was too tired and just wanted to go to bed, friend said okay and left room, a few hours later friend and heard a loud thud from patient's room, went to check on her, found her on the floor by her chair fully dressed with boots on, and bed still made. She stated then her and were looking through patient's room on her desk where the chair is for the lap top and that is when they found the suicide letter and home pamphlet tucked into an envelope. She identified she has known patient 30 years. She stated her and took patient and into their home 10 years ago due to financial issues. She stated patient's 7 years ago, his birthday was/would have been 05/25/2018 and anniversary of is 06/24/2018. She presented the suicide note and behavioral health has a copy, as well as the home pamphlet. Also patient's mental state per friend/roommate/reported POA is not baseline as she did not recognize friend, did not recall her son's name, and mentioned taking the dog out (they don't have a dog), when told there is no dog, then said take the pig out (they don't have a pig). She denied patient having a mental health history or ever being hospitalized for mental health reasons. She stated patient cannot get around without her walker. Medical issues include: Diabetes Mellitus II, Hypothyroidism, blind inn left eye, mobility issues related to diabetic ulcer on right foot and toes removed on left foot as result of diabetes, and others. Head CT dated 06/14/2020 noted age appropriate ventricles and no neurodegenerative language. Be aware langauge which says age related still could involve chronic issues and impact brain deterioration which can affect cognition. Clinical Presentation: Concern for Overdose of Diabetic medication Suicidal ideation with note and pamphlet from home indicating desire for cremation Uncomplicated Bereavement: 7 years ago, mid May was his kamaljit hday, mid June is anniversary of his Think Confusion is more medical related at this point Medication recommendations made by the psychiatric medication provider Dr. Viky ALVARADO., includes: Add Prozac 10MG daily for depression Add Buspar 5MG twice a day for anxiety/calming effect/depression/sleep Impression/Plan: Due to not medically cleared and patient's limited mobility not doing IVC at this time. Also her mental state per friend/roommate/reported POA is not baseline as she did not recognize friend, did not recall her son's name, and mentioned taking the dog out (they don't have a dog), when told there is no dog, then said take the pig out (they don't have a pig). Consulted with Dr. Izquierdo regarding the management and care of patient. Will follow patient as want to evaluate her after she has had time for mentation to become baseline.
--- NOTE | 2020-06-15 13:24 | PDOC PROGRESS REPORT ---
Subjective Progress Note for:: 06/15/20 Subjective:: no pains to right foot Reason For Visit: SEPSIS,DIABETIC FOOT INFECTION,HYPOGLYCEMIA, Physical Exam Vital Signs: Temp Pulse Resp BP Pulse Ox 98.4 F 69 4 L 137/45 H 100 06/15/20 10:00 06/15/20 10:00 06/15/20 11:06 06/15/20 11:06 06/15/20 11:06 Intake & Output 06/14/20 06/15/20 06/16/20 06:59 06:59 06:59 Intake Total 5638 912 Output Total 698 185 Balance 4940 727 Weight 68.6 kg Exam: Patient with suicidal tendencies. Awake but not very responsive. Right plantar ulcer with minimal discharge and appears with minimal tenderness. No inflammation. Order MRI when more stable. Results Laboratory Results: 06/15/20 03:46 06/15/20 03:46 06/14/20 06/15/20 06/15/20 13:14 03:46 03:46 WBC 18.2 H RBC 3.68 L Hgb 10.9 L D Hct 32.5 L MCV 88 MCH 29.7 MCHC 33.6 RDW 13.2 Plt Count 271 Seg Neutrophils % Not Reportable Sodium 134.3 L Potassium 3.6 Chloride 106 Carbon Dioxide 19 L Anion Gap 9 BUN 36 H Creatinine 1.51 H Est GFR ( Amer) 41 L Glucose 135 H Lactic Acid 1.4 Calcium 8.7 Total Bilirubin 0.6 AST 49 H Alkaline Phosphatase 63 Total Protein 4.8 L Albumin 2.3 L 06/14/20 06/14/20 07:25 07:25 Creatine Kinase 104 Troponin I < 0.012 Impressions: Chest X-Ray 06/14/20 07:29 IMPRESSION: NO ACUTE RADIOGRAPHIC FINDING IN THE CHEST. Head CT 06/14/20 07:31 IMPRESSION: NO ACUTE INTRACRANIAL IMAGING FINDINGS. EVIDENCE OF ACUTE STROKE: NO. Cervical Spine CT 06/14/20 07:32 IMPRESSION: Mild multilevel degenerative change without evidence of acute bony abnormality of the cervical spine. Foot X-Ray 06/14/20 09:07 IMPRESSION: 1. No definite evidence of acute bony abnormality or definitive findings of osteomyelitis. 2. Midfoot collapse with significant degenerative changes suggestive of Charcot joint. Assessment & Plan - Diagnosis (1) Chronic foot ulcer Qualifiers: Laterality: right Non-pressure ulcer stage: with fat layer exposed Qualified Code(s): L97.512 - Non-pressure chronic ulcer of other part of right foot with fat layer exposed Is this a current diagnosis for this admission?: Yes - Time Critical Time spent with patient: 15-24 minutes Anticipated Discharge Disposition: Psych Hospital/Unit Anticipated Discharge Timeframe: 1 week - Inpatient Certification Medical Necessity: Need for IV Antibiotics - Plan Summary Plan Summary: 75-year-old female with chronic right plantar wound with no evidence of infl ammation. Patient has suicidal tendencies instilled in the intensive care unit though her vital signs appears to be improving. She was initially admitted for hypotension. Change in mental status. The ulcer does not look like it is a source of her infection with hypotension. Recommend MRI to rule out osteomyelitis when more stable.
--- NOTE | 2020-06-15 17:04 | CDI QUERY ---
CDI Query CDI Review: We are seeking further clarification of documentation to reflect the severity of illness of your patient. Per ED Notes: 06/14/20 10:49 Patient is mildly hypothermic, hypoglycemic altered mental status and clinically I felt she is likely to be septic. 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 This is felt the likely source of her infection. Chest x-ray normal. Urinalysis unremarkable. White count 14,000. Normal hemoglobin. X-ray shows no infiltrate. Patient had a fall at home and was found lying on the floor. We did a noncontrast CT of the C-spine which showed degenerative changes only per radiologist. She also had a noncontrast head which showed no acute changes per radiologist. Per Critical Care Progress Notes: Psychiatric exam: PRESENT: flat affect, suicidal ideation - She has not said this explicitely, but there is a note that the friend found suggesting an insulin OD and perhaps 'other meds' such as losartan Behavioral Health Consult: Suicidal Ideation with suicide note left and what appears to be estate planning by patient since rommates/friends found information from [facility] with patient saying she wished to be cremated. Based on your medical judgement, can you further clarify in the Progress Notes if patients diagnosis is likely, probably, suspected to be: Intentional insulin overdose Unintentional insulin overdose Intentional drug overdose Unable to determine Other cause for presenting signs and symptoms, i.e. hypotension, hypoglycemia, hypothermia. Please indicate. Thank you for your consideration. VANESSA Sanchez RN Clinical Mask Layout Designer Physician Advisor [email or web address]
--- NOTE | 2020-06-15 17:44 | XCELERA REPORT ---
[address] [address] Transthoracic Echocardiogram Report Name: SHERRY FINCH Age: 74 yrs Gender: Female : 1945 Patient Status: Inpatient Patient Location: ICU^608^A Study Date: 06/15/2020 09:00 AM History: CHF Bradycardia Height: 65 in Weight: 141 lb BSA: 1.7 m2 Procedure: A complete two-dimensional transthoracic echocardiogram was performed (2D, M-mode, spectral and color flow Doppler). The study was technically difficult with many images being suboptimal in quality. Reason For Study: low Cardiac output with intermittent bradycardia Previous Evaluation: No previous studies were available. History: CHF Bradycardia. Ordering Physician: CHEN^CHASE BO^^^HOT ROLL LAMINATOR Performed By: Philly Rees Interpretation Summary The study was technically difficult with many images being suboptimal in quality. CHF Bradycardia Left ventricular systolic function is normal. The Ejection Fraction estimate is 60-65% The right ventricle is normal in size and function. There is no aortic valve stenosis There is a trace amount of tricuspid regurgitation Doppler findings do not suggest pulmonary hypertension. There is no pericardial effusion. Echogenic structure in liver. Suggest dedicated USS Abdomen MMode/2D Measurements & Calculations RVDd: 2.2 cm LVIDd: 4.0 cm FS: 39.1 % Ao root diam: 2.3 cm IVSd: 0.89 cm LVIDs: 2.4 cm EDV(Teich): 69.3 ml Ao root area: 4.3 cm2 LVPWd: 0.86 cm ESV(Teich): 20.7 ml EF(Teich): 70.2 % Doppler Measurements & Calculations MV E max alfonzo: MV dec slope: Ao V2 max: LV V1 max P.5 cm/sec 398.9 cm/sec2 141.0 cm/sec 6.8 mmHg MV A max alfonzo: MV dec time: 0.28 secAo max PG: LV V1 max: 130.3 cm/sec 7.9 mmHg 130.1 cm/sec MV E/A: 0.86 PA V2 max: TR max alfonzo: 102.7 cm/sec 214.5 cm/sec PA max P.2 mmHg TR max P.7 mmHg Left Ventricle The left ventricle is normal in size. There is borderline concentric left ventricular hypertrophy. Left ventricular systolic function is normal. The Ejection Fraction estimate is 60-65%. Doppler measurements suggest impaired left ventricular relaxation, which is associated with grade I/IV or mild diastolic dysfunction. Regional wall motion abnormalities cannot be excluded due to limited visualization. Right Ventricle The right ventricle is normal in size and function. Atria The right atrium is normal. The left atrium is mildly dilated. The interatrial septum is intact with no evidence for an atrial septal defect. There is no Doppler evidence for an interatrial shunt. Mitral Valve Calcified mitral apparatus. There is mild mitral leaflet calcification. There is no evidence of mitral valve prolapse. There is no mitral valve stenosis. There is no mitral regurgitation noted. Aortic Valve The aortic valve is mildly calcified. The aortic valve is sclerotic and shows some degree of functional abnormality. The aortic valve opens well. There is no aortic valve stenosis. There is a trace amount of aortic regurgitation. Tricuspid Valve The tricuspid valve is normal in structure and function. There is no tricuspid stenosis. There is a trace amount of tricuspid regurgitation. Doppler findings do not suggest pulmonary hypertension. Pulmonic Valve The pulmonic valve is not well visualized. There is no pulmonic valvular stenosis. There is a trace amount of pulmonic regurgitation. Great Vessels The aortic root is normal size. The inferior vena cava appeared normal and decreased > 50% with respiration (RAP 5-10 mmHg). Effusions There is no pericardial effusion. Incidental Findings Echogenic structure in liver. Suggest dedicated USS Abdomen. : CHEN^CHASE BO^^^Sixto Sofia
[2020-06-15] MEDS ORDERED: VANCOMYCIN HCL INJ 1000 MG VIAL IV SCH (21:15)
[2020-06-15] MEDS: METRONIDAZOLE 500 MG/NS RTU 500 MG/100 ML RTUPB IV SCH (21:43)
[2020-06-15] MEDS ORDERED: VANCOMYCIN HCL 750 MG in DEXTROSE 5%-WATER 250 ML IV SCH (23:00)
[2020-06-15] MEDS ORDERED: DEXTROSE 50%-WATER 25 GM/50 ML DISP.SYRIN IV ONE ×2 (23:01→23:02)
[2020-06-15] MEDS ORDERED: DEXTROSE 10%-WATER 1,000 ML IV PRN (23:08)
[2020-06-16 04:23] LABS: ABSOLUTE BASOPHILS # (AUTO) 0.1 10^3/uL (0.0-0.2); ABSOLUTE EOSINOPHILS # (AUTO) 0.4 10^3/uL (0.0-0.6); ABSOLUTE LYMPHOCYTES (AUTO) 1.8 10^3/uL (0.5-4.7); ABSOLUTE MONOCYTES (AUTO) 1.7 10^3/uL (0.1-1.4); ABSOLUTE NEUT (AUTO) 15.5 10^3/uL (1.7-8.2); BASOPHILS % (AUTO) 0.3 % (0-2); EOSINOPHILS % (AUTO) 2.2 % (0-6); HEMATOCRIT 32.3 % (36.0-47.0); HEMOGLOBIN 10.7 g/dL (12.0-15.5); LYMPHOCYTES % (AUTO) 9.3 % (13-45); MEAN CORPUSCULAR HEMOGLOBIN 28.8 pg (27.0-33.4); MEAN CORPUSCULAR HGB CONC 33.2 g/dL (32.0-36.0); MEAN CORPUSCULAR VOLUME 87 fl (80-97); MONOCYTES % (AUTO) 8.5 % (3-13); PLATELET COUNT 250 10^3/uL (150-450); RED BLOOD COUNT 3.72 10^6/uL (3.72-5.28); SEGMENTED NEUTROPHILS % (AUTO) 79.7 % (42-78); TOTAL CELLS COUNTED % (AUTO) 100 %; WHITE BLOOD COUNT 19.4 10^3/uL (4.0-10.5)
[2020-06-16 04:40] LABS: ALBUMIN 2.3 g/dL (3.5-5.0); ALKALINE PHOSPHATASE 76 U/L (38-126); ANION GAP 7 (5-19); ASPARTATE AMINO TRANSFERASE 61 U/L (14-36); BILIRUBIN,DIRECT 0.1 mg/dL (0.0-0.4); BILIRUBIN,TOTAL 0.3 mg/dL (0.2-1.3); BLOOD UREA NITROGEN 31 mg/dL (7-20); CALCIUM 8.4 mg/dL (8.4-10.2); CARBON DIOXIDE 21 mmol/L (22-30); CHLORIDE 110 mmol/L (98-107); GLUCOSE 130 mg/dL (75-110); POTASSIUM 3.6 mmol/L (3.6-5.0); TOTAL PROTEIN 4.9 g/dL (6.3-8.2)
[2020-06-16] MEDS: METRONIDAZOLE 500 MG/NS RTU 500 MG/100 ML RTUPB IV SCH (05:45)
[2020-06-16] MEDS ORDERED: DEXTROSE 5%-NORMAL SALINE 1,000 ML IV PRN (05:52)
[2020-06-16] MEDS ORDERED: DEXTROSE 5%-1/2 NORMAL SALINE 1,000 ML IV ONE (07:25)
[2020-06-16] MEDS: FOLIC ACID 1 MG TABLET PO SCH (09:09)
[2020-06-16] MEDS: PRASUGREL HCL 10 MG TABLET PO SCH (09:09)
[2020-06-16] MEDS: PANTOPRAZOLE SODIUM 40 MG VIAL IV SCH (09:10)
[2020-06-16] MEDS: MIDODRINE HCL 5 MG TABLET PO SCH ×2 (09:10→17:22)
[2020-06-16] MEDS: ENOXAPARIN SODIUM INJ 40 MG/0.4 ML DISP.SYRIN SUBCUT SCH (09:10)
[2020-06-16] MEDS ORDERED: DEXTROSE 10%-WATER 1,000 ML IV PRN (09:38)
[2020-06-16] MEDS ORDERED: VANCOMYCIN HCL 1,000 MG in DEXTROSE 5%-WATER 250 ML IV SCH (10:00)
[2020-06-16] MEDS ORDERED: CEFAZOLIN 1 GM/D5W RTU 1 GM/50 ML RTUPB IV SCH (12:00)
[2020-06-16] MEDS: CLINDAMYCIN 900 MG/D5W RTU 900 MG/50 ML RTUPB IV SCH ×2 (13:22→22:33)
--- NOTE | 2020-06-16 14:24 | RADIOLOGY REPORT (SQ) ---
EXAM DESCRIPTION: U/S ABDOMEN COMPLETE W/O DOP IMAGES COMPLETED DATE/TIME: 06/16/2020 12:52 am REASON FOR STUDY: Elevated LFT COMPARISON: None. TECHNIQUE: Dynamic and static grayscale images acquired of the abdomen and recorded on PACS. Additio nal selected color Doppler and spectral images recorded. Note: Study does not meet criteria for complete doppler/duplex scan LIMITATIONS: None. FINDINGS: PANCREAS: Pancreatic head and body appear normal. The tail is obscured by overlying bowel gas. LIVER: No masses. Echotexture normal. LIVER VASCULATURE: Normal directional flow of the main portal vein and hepatic veins. GALLBLADDER: Surgically absent. ULTRASOUND-DETECTED LAUGHLIN'S SIGN: Negative. INTRAHEPATIC DUCTS AND COMMON DUCT: CBD and intrahepatic ducts normal caliber. No filling defects. INFERIOR VENA CAVA: Normal flow. AORTA: Visualize abdominal aorta is normal in caliber. Distal aorta is obscured by overlying bowel g as. RIGHT KIDNEY: Normal size. Normal echogenicity. No solid or suspicious masses. No hydronephros is. No calcifications. LEFT KIDNEY: Normal size. Normal echogenicity. No solid or suspicious masses. No hydronephrosi s. No calcifications. SPLEEN: Normal size. No solid masses. PERITONEAL AND PLEURAL SPACES: No ascites or effusions. OTHER: No other significant finding. IMPRESSION: Limited study due to overlying bowel gas. No acute findings. The patient is status pos t cholecystectomy. No ductal dilatation. TECHNICAL DOCUMENTATION: JOB ID: [id number] 2010 [employer]- All Rights Reserved Reading location - IP/workstation name: [email or web address]
[2020-06-16] MEDS: CEFAZOLIN 1 GM/D5W RTU 1 GM/50 ML RTUPB IV SCH ×2 (14:30→21:46)
[2020-06-16] MEDS: VANCOMYCIN HCL 1,000 MG in DEXTROSE 5%-WATER 250 ML IV SCH (17:23)
--- NOTE | 2020-06-16 18:03 | PDOC CRITICAL CARE PROG REPORT ---
General Date:: 06/16/20 ICU Day:: 3 Hospital Day:: 3 Resuscitation Status: Full Code Events in the past 12 to 24 Hours:: This 74-year-old female was admitted on 06/14/2020 after attempted suicide with overdose of insulin and Hyzaar. In the emergency department she did have a bout of emesis and is suspected to have had a gross aspiration event. She has type 2 diabetes mellitus and is an established patient at the [facility] for right diabetic foot, which is undergone multiple debridement. 06/16: She is on norepinephrine at 1 mcg/min. Uncooperative with clinical interview. She does not permit clinical exam. She "just wants to get out of here". She is currently on Flagyl/vancomycin for empiric coverage of right diabetic foot, which is isolating gram-positive cocci. Chest x-ray is clear. However, WBC count is steadily rising 14.4>18.2>19.4. It is still unknown which formulation of insulin the patient used to overdose (nor the specific dose). She continues to require supplemental glucose to maintain normal serum glucose levels. Currently, she is on D5 normal saline for maintenance fluids along with D10 infusion at 20 mL/h. She is off all insulin formulations. Serum creatinine 1.4, slightly improved. After the patient's friend visited, she finally allowed clinical examination. Review of systems relevant to events:: Cardiovascular: Hypotension Endocrine: Hypoglycemia Psychiatric: Major depression with suicide attempt Reason for ICU Addmission:: HYpotension and needing levophed - Medications: Medications reviewed and adjusted accordingly: Yes Vasopressors:: Levophed Physical Exam Vital Signs: Temp Pulse Resp BP Pulse Ox 98.5 F 87 16 144/79 H 99 06/16/20 08:00 06/16/20 08:00 06/16/20 08:00 06/16/20 08:00 06/16/20 08:00 Intake & Output 06/15/20 06/16/20 06/17/20 06:59 06:59 06:59 Intake Total 2048 2788 251 Output Total 695 3055 600 Balance 4940 -267 -349 Weight 68.6 kg 68.4 kg Weight/Height Weight 68.4 kg Height 1.65 m General appearance: PRESENT: no acute distress, well-developed, well-nourished Head exam: PRESENT: atraumatic, normocephalic Eye exam: PRESENT: conjunctiva pink, EOMI, PERRLA. ABSENT: scleral icterus Ear exam: PRESENT: normal external ear exam Neck exam: ABSENT: carotid bruit, JVD, lymphadenopathy, thyromegaly Respiratory exam: PRESENT: clear to auscultation noreen. ABSENT: rales, rhonchi, wheezes Cardiovascular exam: PRESENT: RRR. ABSENT: diastolic murmur, rubs, systolic murmur GI/Abdominal exam: PRESENT: normal bowel sounds, soft. ABSENT: distended, guarding, mass, organolmegaly, rebound, tenderness Extremities exam: PRESENT: full ROM. ABSENT: calf tenderness, clubbing, pedal edema Psychiatric exam: PRESENT: agitated, depressed, flat affect, suicidal ideation Laboratory/Radiographs Laboratory Results: 06/16/20 04:10 06/16/20 04:10 06/16/20 06/16/20 06/16/20 04:10 04:10 04:10 WBC 19.4 H RBC 3.72 Hgb 10.7 L Hct 32.3 L MCV 87 MCH 28.8 MCHC 33.2 RDW 13.0 Plt Count 250 Seg Neutrophils % 79.7 H Sodium 137.8 Potassium 3.6 Chloride 110 H Carbon Dioxide 21 L Anion Gap 7 BUN 31 H Creatinine 1.37 H Est GFR ( Amer) 46 L Glucose 130 H Lactic Acid 1.1 Calcium 8.4 Total Bilirubin 0.3 AST 61 H Alkaline Phosphatase 76 Total Protein 4.9 L Albumin 2.3 L 06/14/20 06/14/20 07:25 07:25 Creatine Kinase 104 Troponin I < 0.012 Impressions: Chest X-Ray 06/14/20 07:29 IMPRESSION: NO ACUTE RADIOGRAPHIC FINDING IN THE CHEST. Head CT 06/14/20 07:31 IMPRESSION: NO ACUTE INTRACRANIAL IMAGING FINDINGS. EVIDENCE OF ACUTE STROKE: NO. Cervical Spine CT 06/14/20 07:32 IMPRESSION: Mild multilevel degenerative change without evidence of acute bony abnormality of the cervical spine. Foot X-Ray 06/14/20 09:07 IMPRESSION: 1. No definite evidence of acute bony abnormality or definitive findings of osteomyelitis. 2. Midfoot collapse with significant degenerative changes suggestive of Charcot joint. All labs, radiographs, diagnostic studies and EKGs were personally reviewed: Yes In addition, reports of radiographic and diagnostic studies were read: Yes Assessment and Plan - Diagnosis (1) Attempted suicide Is this a current diagnosis for this admission?: Yes Plan: Continue suicide precautions. (2) Aspiration into airway Qualifiers: Encounter type: initial encounter Qualified Code(s): T17.908A - Unspecified foreign body in respiratory tract, part unspecified causing other injury, initial encounter Is this a current diagnosis for this admission?: Yes Plan: * Initial chest x-ray was clear; however, WBC count is rising. * Change antibiotic therapy (see below). (3) Diabetic foot infection Is this a current diagnosis for this admission?: Yes Plan: * Currently on Flagyl/vancomycin for empiric antibiotic therapy. * Wound culture is isolating gram-positive cocci. Change Flagyl to Ancef/clindamycin. * Continue vancomycin. * Under treatment at wound care, seen by Dr. Tan. (4) Hypoglycemia associated with diabetes Is this a current diagnosis for this admission?: Yes Plan: * Continue D10 infusion until the patient is willing/able to restart p.o. intake. * No antidiabetes medications at this time. (5) Hypothermia Qualifiers: Encounter type: subsequent encounter Qualified Code(s): T68.XXXD - Hypothermia, subsequent encounter Is this a current diagnosis for this admission?: Yes (6) Sepsis associated hypotension Is this a current diagnosis for this admission?: Yes Plan: * Multifactorial. Secondary to right foot infection, profound hypoglycemia (insulin overdose) and overdose of antihypertensive medications. Critical Time Critical Time (minutes): 45 Level of Care: ICU -: 1. The care of a critical patient is a dynamic process. This note is a instruments sales representative synopsis but static in nature. The timeframe for treatments gi cammy in order is not necessarily the actual time these treatments may have been done. 2. This patient requires critical care secondary to ongoing requirements for therapy not offered or safe outside the critical care environment. Transfer to a lower level of care will result in altered life or limb morbidity and mortality. 3. Multidisciplinary rounds completed. 4. ABCDE bundle addressed.
[2020-06-16] MEDS ORDERED: DEXTROSE 5%-1/2 NORMAL SALINE 1,000 ML IV PRN (19:30)
[2020-06-16] MEDS: ATORVASTATIN CALCIUM 20 MG TABLET PO SCH (21:46)
[2020-06-17] MEDS: CEFAZOLIN 1 GM/D5W RTU 1 GM/50 ML RTUPB IV SCH ×5 (02:53→23:59)
[2020-06-17 04:48] LABS: ANION GAP 8 (5-19); BLOOD UREA NITROGEN 21 mg/dL (7-20); CALCIUM 9.1 mg/dL (8.4-10.2); CARBON DIOXIDE 23 mmol/L (22-30); CHLORIDE 107 mmol/L (98-107); GLUCOSE 138 mg/dL (75-110); POTASSIUM 3.5 mmol/L (3.6-5.0)
[2020-06-17] MEDS: LEVOTHYROXINE SODIUM 0.075 MG TABLET PO SCH (05:54)
[2020-06-17] MEDS: CLINDAMYCIN 900 MG/D5W RTU 900 MG/50 ML RTUPB IV SCH ×3 (05:55→22:46)
[2020-06-17 07:36] LABS: HEMATOCRIT 33.7 % (36.0-47.0); HEMOGLOBIN 11.6 g/dL (12.0-15.5); MEAN CORPUSCULAR HEMOGLOBIN 29.6 pg (27.0-33.4); MEAN CORPUSCULAR HGB CONC 34.4 g/dL (32.0-36.0); MEAN CORPUSCULAR VOLUME 86 fl (80-97); PLATELET COUNT 249 10^3/uL (150-450); RED BLOOD COUNT 3.92 10^6/uL (3.72-5.28); RED CELL DISTRIBUTION WIDTH 12.9 % (11.5-14.0); WHITE BLOOD COUNT 14.4 10^3/uL (4.0-10.5)
[2020-06-17] MEDS: FOLIC ACID 1 MG TABLET PO SCH (10:42)
[2020-06-17] MEDS: PRASUGREL HCL 10 MG TABLET PO SCH (10:42)
[2020-06-17] MEDS: ENOXAPARIN SODIUM INJ 40 MG/0.4 ML DISP.SYRIN SUBCUT SCH (10:42)
[2020-06-17] MEDS: ESCITALOPRAM OXALATE 10 MG TABLET PO SCH (10:42)
[2020-06-17] MEDS: MIDODRINE HCL 5 MG TABLET PO SCH ×2 (10:43→18:25)
[2020-06-17] MEDS: FAMOTIDINE INJ/PF 20 MG/2 ML SDV IV SCH ×2 (10:45→22:48)
--- NOTE | 2020-06-17 10:50 | PDOC CRITICAL CARE PROG REPORT ---
General Date:: 06/17/20 ICU Day:: 4 Hospital Day:: 4 Resuscitation Status: Full Code Events in the past 12 to 24 Hours:: This 74-year-old female was admitted on 06/14/2020 after attempted suicide with overdose of insulin and Hyzaar. In the emergency department she did have a bout of emesis and is suspected to have had a gross aspiration event. She has type 2 diabetes mellitus and is an established patient at the [facility] [place] for right diabetic foot, which is undergone multiple debridement. 06/16: She is on norepinephrine at 1 mcg/min. Uncooperative with clinical interview. She does not permit clinical exam. She "just wants to get out of here". She is currently on Flagyl/vancomycin for empiric coverage of right diabetic foot, which is isolating gram-positive cocci. Chest x-ray is clear. However, WBC count is steadily rising 14.4>18.2>19.4. It is still unknown which formulation of insulin the patient used to overdose (nor the specific dose). She continues to require supplemental glucose to maintain normal serum glucose levels. Currently, she is on D5 normal saline for maintenance fluids along with D10 infusion at 20 mL/h. She is off all insulin formulations. Serum creatinine 1.4, slightly improved. After the patient's friend visited, she finally allowed clinical examination. 06/17: Off norepinephrine. Off maintenance IVs. Off D5. Off D10. Sleeping comfortably. No events reported overnight. Magnesium 1.5 this morning. Creatinine 0.9. Glucose 138. WBC down to 14.4. Started Ancef/clindamycin (in addition to vancomycin) for diabetic foot. However, she is back to being uncooperative with care. [facility] nurse reports that she has been refusing her medications. Review of systems relevant to events:: Cardiovascular: Hypotension Endocrine: Hypoglycemia Psychiatric: Major depression with suicide attempt Reason for ICU Addmission:: HYpotension and needing levophed - Medications: Medications reviewed and adjusted accordingly: Yes Vasopressors:: Off Levophed Physical Exam Vital Signs: Temp Pulse Resp BP Pulse Ox 97.9 F 66 13 157/61 H 99 06/17/20 08:00 06/17/20 08:00 06/17/20 08:00 06/17/20 08:00 06/17/20 08:00 Intake & Output 1106/17/20 06/18/20 06:59 06:59 06:59 Intake Total 2788 2000 Output Total 3757 4075 300 Balance -267 -2074 -300 Weight 68.4 kg 65.8 kg Weight/Height Weight 65.8 kg Height 1.65 m General appearance: PRESENT: no acute distress, well-developed, well-nourished Head exam: PRESENT: atraumatic, normocephalic Eye exam: PRESENT: conjunctiva pink, EOMI, PERRLA. ABSENT: scleral icterus Respiratory exam: PRESENT: clear to auscultation noreen. ABSENT: rales, rhonchi, wheezes Cardiovascular exam: PRESENT: RRR. ABSENT: diastolic murmur, rubs, systolic murmur GI/Abdominal exam: PRESENT: normal bowel sounds, soft. ABSENT: distended, guarding, mass, organolmegaly, rebound, tenderness Extremities exam: PRESENT: full ROM, other - Right diabetic foot. ABSENT: calf tenderness, clubbing Neurological exam: PRESENT: alert, awake, oriented to person, oriented to place, oriented to time, oriented to situation, CN II-XII grossly intact. ABSENT: motor sensory deficit Psychiatric exam: PRESENT: flat affect. ABSENT: homicidal ideation, normal mood Skin exam: PRESENT: other - Diabetic foot Laboratory/Radiographs Laboratory Results: 06/17/20 04:15 06/17/20 04:15 06/16/20 06/16/20 06/17/20 04:10 04:10 04:15 WBC RBC Hgb Hct MCV MCH MCHC RDW Plt Count Sodium 137.9 Potassium 3.5 L Chloride 107 Carbon Dioxide 23 Anion Gap 8 BUN 21 H Creatinine 0.91 Est GFR ( Amer) > 60 Glucose 138 H Calcium 9.1 Magnesium 1.8 1.5 L TSH Cancelled 06/17/20 04:15 WBC 14.4 H RBC 3.92 Hgb 11.6 L Hct 33.7 L MCV 86 MCH 29.6 MCHC 34.4 RDW 12.9 Plt Count 249 Sodium Potassium Chloride Carbon Dioxide Anion Gap BUN Creatinine Est GFR ( Amer) Glucose Calcium Magnesium TSH 06/14/20 10:55 Foot - Diabetic Ulcer Gram Stain - Final 06/14/20 10:55 Foot - Diabetic Ulcer Wound Culture - Final Skin Mitzi 06/14/20 06/14/20 07:25 07:25 Creatine Kinase 104 Troponin I < 0.012 Impressions: Chest X-Ray 06/14/20 07:29 IMPRESSION: NO ACUTE RADIOGRAPHIC FINDING IN THE CHEST. Head CT 06/14/20 07:31 IMPRESSION: NO ACUTE INTRACRANIAL IMAGING FINDINGS. EVIDENCE OF ACUTE STROKE: NO. Cervical Spine CT 06/14/20 07:32 IMPRESSION: Mild multilevel degenerative change without evidence of acute bony abnormality of the cervical spine. Foot X-Ray 06/14/20 09:07 IMPRESSION: 1. No definite evidence of acute bony abnormality or definitive findings of osteomyelitis. 2. Midfoot collapse with significant degenerative changes suggestive of Charcot joint. Abdomen Ultrasound 06/16/20 00:00 IMPRESSION: Limited study due to overlying bowel gas. No acute findings. The patient is status post cholecystectomy. No ductal dilatation. All labs, radiographs, diagnostic studies and EKGs were personally reviewed: Yes In addition, reports of radiographic and diagnostic studies were read: Yes Assessment and Plan - Diagnosis (1) Attempted suicide Is this a current diagnosis for this admission?: Yes Plan: * Continue suicide precautions. * Start Lexapro (2) Aspiration into airway Qualifiers: Encounter type: initial encounter Qualified Code(s): T17.908A - Unspecified foreign body in respiratory tract, part unspecified causing other injury, initial encounter Is this a current diagnosis for this admission?: Yes Plan: * Initial chest x-ray was clear. * On Ancef/clindamycin/vancomycin to provide empiric coverage for aspiration and diabetic foot. WBC count downtrending. (3) Diabetic foot infection Is this a current diagnosis for this admission?: Yes Plan: * Currently on Ancef/clindamycin/vancomycin for empiric antibiotic therapy. * Wound culture isolated skin mitzi. * Stop vancomycin. Finish 7-day course of Ancef/clindamycin. * Under treatment at wound care, seen by Dr. Tan. (4) Hypoglycemia associated with diabetes Is this a current diagnosis for this admission?: Yes Plan: * Continue D10 infusion until the patient is willing/able to restart p.o. intake. * No antidiabetes medications at this time. (5) Hypothermia Qualifiers: Encounter type: subsequent encounter Qualified Code(s): T68.XXXD - Hypothermia, subsequent encounter Is this a current diagnosis for this admission?: Yes (6) Sepsis associated hypotension Is this a current diagnosis for this admission?: Yes (7) Hypomagnesemia Is this a current diagnosis for this admission?: Yes Plan: * Stop Protonix. * Famotidine for GI prophylaxis. Critical Time Critical Time (minutes): 30 Level of Care: ICU -: 1. The care of a critical patient is a dynamic process. This note is a telecommunications sales representative synopsis but static in nature. The timeframe for treatments given in order is not necessarily the actual time these treatments may have been done. 2. This patient requires critical care secondary to ongoing requirements for therapy not offered or safe outside the critical care environment. Transfer to a lower level of care will result in altered life or limb morbidity and mortality. 3. Multidisciplinary rounds completed. 4. ABCDE bundle addressed.
[2020-06-17] MEDS: MAGNESIUM SULFATE/D5W 1 GM/100 ML RTUPB IV SCH ×2 (16:15→17:42)
[2020-06-17] MEDS ORDERED: GLUCAGON,HUMAN RECOMB 1 MG INJ IM PRN (17:25)
[2020-06-17] MEDS ORDERED: DEXTROSE 40% GEL 15 GM TUBE PO PRN ×2 (17:25)
[2020-06-17] MEDS ORDERED: DEXTROSE 50%-WATER 25 GM/50 ML DISP.SYRIN IV PRN ×2 (17:25)
[2020-06-17] MEDS: INSULIN REG, HUMAN 100 UNIT/ML 3 ML VIAL (PYX) SUBCUT SCH ×2 (17:52→23:59)
[2020-06-17] MEDS: VANCOMYCIN HCL 1,000 MG in DEXTROSE 5%-WATER 250 ML IV SCH (19:18)
[2020-06-17] MEDS: ATORVASTATIN CALCIUM 20 MG TABLET PO SCH (22:40)
[2020-06-17] MEDS ORDERED: HALOPERIDOL 5 MG TABLET PO ONE (23:15)
[2020-06-18 04:32] LABS: ANION GAP 9 (5-19); BLOOD UREA NITROGEN 16 mg/dL (7-20); CALCIUM 8.9 mg/dL (8.4-10.2); CARBON DIOXIDE 26 mmol/L (22-30); CHLORIDE 102 mmol/L (98-107); GLUCOSE 136 mg/dL (75-110); POTASSIUM 3.1 mmol/L (3.6-5.0)
[2020-06-18] MEDS: CLINDAMYCIN 900 MG/D5W RTU 900 MG/50 ML RTUPB IV SCH ×3 (06:00→22:18)
[2020-06-18] MEDS: POTASSI CL 20 MEQ/50 ML RIDER 20 MEQ/50 ML RTUPB IV SCH ×4 (06:00→22:19)
[2020-06-18] MEDS: CEFAZOLIN 1 GM/D5W RTU 1 GM/50 ML RTUPB IV SCH ×3 (06:00→20:49)
[2020-06-18] MEDS: INSULIN REG, HUMAN 100 UNIT/ML 3 ML VIAL (PYX) SUBCUT SCH ×4 (06:01→23:24)
[2020-06-18] MEDS: LEVOTHYROXINE SODIUM 0.075 MG TABLET PO SCH (06:13)
--- NOTE | 2020-06-18 06:51 | PSYCHOLOGICAL NOTE ---
Psych Note - Psych Note Date seen by psych provider: 06/17/20 Time seen by psych provider: 19:00 Psych Note: patient is currently under IVC for attempting to kill herself by overdose on her insulin. Paperwork has been filled out, faxed to engine inspector and placed in gabe ent's chart. Paperwork was not filed previously due to her medical status. Patient has begun refusing treatment and acting out physically. Patient is angry her attempted failed and continues to report wanting to . She has been refusing medications and food and pulled out her IV. Paperwork has been filed to ensure continued life saving treatment and psychiatric treatment can be provided for the patient; patient cannot refuse life saving and/or psychiatric treatment and medications. Medication recommendations per [facility]'s contracted psychiatrist are as follows: Clonidine transdermal patch 0.2mg Please repeat EKG. If the patient's QTc is 450 or under please start Haldol 2.5mg twice daily was consulted on this patient; attending physician is in agreement with recommendations and disposition.
[2020-06-18 08:27] LABS: HEMATOCRIT 31.8 % (36.0-47.0); HEMOGLOBIN 11.1 g/dL (12.0-15.5); MEAN CORPUSCULAR HEMOGLOBIN 29.8 pg (27.0-33.4); MEAN CORPUSCULAR HGB CONC 34.9 g/dL (32.0-36.0); MEAN CORPUSCULAR VOLUME 85 fl (80-97); PLATELET COUNT 262 10^3/uL (150-450); RED BLOOD COUNT 3.73 10^6/uL (3.72-5.28); RED CELL DISTRIBUTION WIDTH 13.1 % (11.5-14.0); WHITE BLOOD COUNT 8.9 10^3/uL (4.0-10.5)
[2020-06-18] MEDS ORDERED: HALOPERIDOL 5 MG TABLET PO SCH (10:00)
[2020-06-18] MEDS: ESCITALOPRAM OXALATE 10 MG TABLET PO SCH (11:28)
[2020-06-18] MEDS: PRASUGREL HCL 10 MG TABLET PO SCH (11:28)
[2020-06-18] MEDS: FOLIC ACID 1 MG TABLET PO SCH (11:28)
[2020-06-18] MEDS: MIDODRINE HCL 5 MG TABLET PO SCH ×2 (11:29→22:19)
[2020-06-18] MEDS ORDERED: CLONIDINE 0.1 MG/24 HR PATCH.TDWK TD SCH (11:30)
[2020-06-18] MEDS ORDERED: HALOPERIDOL LACTATE INJ 5 MG/1 ML VIAL IV SCH (12:00)
[2020-06-18] MEDS: CLONIDINE 0.2 MG/24 HR PATCH.TDWK TD SCH (12:14)
[2020-06-18] MEDS: FAMOTIDINE INJ/PF 20 MG/2 ML SDV IV SCH ×2 (12:22→22:18)
[2020-06-18] MEDS: ENOXAPARIN SODIUM INJ 40 MG/0.4 ML DISP.SYRIN SUBCUT SCH (12:22)
[2020-06-18] MEDS ORDERED: POTASSIUM PHOS,M-BASIC-D-BASIC 15 MMOL in NORMAL SALINE 250 ML IV ONE (15:00)
[2020-06-18] MEDS: MAGNESIUM SULFATE/D5W 1 GM/100 ML RTUPB IV SCH ×3 (15:40→21:54)
--- NOTE | 2020-06-18 18:08 | PDOC PROGRESS REPORT ---
Subjective Progress Note for:: 06/18/20 Subjective:: The patient is a 74-year-old female with a past medical history significant for Insulin-dependent diabetes mellitus, hypertension, hyperlipidemia, hypothyroidism, and chronic foot wound followed by the surgical clinic who was admitted 06/14/2020 with presumed sepsis with associated hypotension, hypothermia and hypoglycemia but subsequently found to have attempted suicide by intentional insulin overdose (Lantus and Humalog) and possibly losartan. The patient initially required Levophed for blood pressure support; this has been successfully weaned off. She also required D10 maintenance fluids to maintain blood glucose with frequent correction utilizing D50 pushes. Dextrose drips have been discontinued x24 hours with stable blood glucose greater than 130. She has been downgraded to the medical floor and care transitioned to the hospitalist team. Patient was seen on evening rounds. She is found resting in bed, comfortably, on room air. She is A&O x4. She tells me that she does not want to discuss the events leading to her current admission. However, she is calm and cooperative in discussing her current clinical status, medications, and recommendations. She is agreeable to MRI of her right lower extremity for evaluation of her chronic foot wound (as was previously recommended by Dr. Tan). She tells me that she does not have much of an appetite, "but I will try to eat." She also asks that I help her make a phone call; would like to speak with her close friend, Elaina. She does give me permission to speak with Elaina about her medical care. She was specifically asked if there is anything that she would not want me to discuss with Elaina. She replies that she would like for me to share with Elaina all information. She denies fever, chills, chest pain, palpitations, dyspnea, cough, abdominal pain, nausea vomiting. She has no other questions or concerns at this time. No concerns per nursing Reason For Visit: SEPSIS,DIABETIC FOOT INFECTION,HYPOGLYCEMIA, Physical Exam Vital Signs: Temp Pulse Resp BP Pulse Ox 98.4 F 60 16 167/58 H 100 06/18/20 10:00 06/18/20 10:00 06/18/20 16:00 06/18/20 15:40 06/18/20 16:00 Intake & Output 06/17/20 06/18/20 06/19/20 06:59 06:59 06:59 Intake Total 2050 400 100 Output Total 4075 2275 500 Balance -2023 - Weight 65.8 kg 64.2 kg General appearance: PRESENT: no acute distress, cooperative, thin, well-dev eloped, well-nourished Head exam: PRESENT: atraumatic, normocephalic Eye exam: PRESENT: conjunctiva pink, EOMI, PERRLA. ABSENT: scleral icterus Mouth exam: PRESENT: moist, tongue midline Respiratory exam: PRESENT: clear to auscultation noreen, symmetrical, unlabored. ABSENT: rales, rhonchi, wheezes Cardiovascular exam: PRESENT: RRR, +S1, +S2. ABSENT: diastolic murmur, rubs, systolic murmur Pulses: PRESENT: normal dorsalis pedis pul Vascular exam: PRESENT: normal capillary refill GI/Abdominal exam: PRESENT: normal bowel sounds, soft. ABSENT: distended, guarding, mass, organolmegaly, rebound, tenderness Rectal exam: PRESENT: deferred Extremities exam: PRESENT: full ROM. ABSENT: calf tenderness, clubbing, pedal edema Neurological exam: PRESENT: alert, awake, oriented to person, oriented to place, oriented to time, oriented to situation, CN II-XII grossly intact. ABSENT: motor sensory deficit Psychiatric exam: PRESENT: flat affect, normal mood. ABSENT: homicidal ideation, suicidal ideation Skin exam: PRESENT: dry, warm, other - Right chronic foot wound (POA). ABSENT: cyanosis, intact, rash Results Laboratory Results: 06/18/20 03:55 06/18/20 03:55 06/18/20 06/18/20 03:55 03:55 WBC 8.9 RBC 3.73 Hgb 11.1 L Hct 31.8 L MCV 85 MCH 29.8 MCHC 34.9 RDW 13.1 Plt Count 262 Sodium 136.8 L Potassium 3.1 L Chloride 102 Carbon Dioxide 26 Anion Gap 9 BUN 16 Creatinine 0.73 Est GFR ( Amer) > 60 Glucose 136 H Calcium 8.9 Magnesium 1.6 06/14/20 06/14/20 07:25 07:25 Creatine Kinase 104 Troponin I < 0.012 Impressions: Chest X-Ray 06/14/20 07:29 IMPRESSION: NO ACUTE RADIOGRAPHIC FINDING IN THE CHEST. Head CT 06/14/20 07:31 IMPRESSION: NO ACUTE INTRACRANIAL IMAGING FINDINGS. EVIDENCE OF ACUTE STROKE: NO. Cervical Spine CT 06/14/20 07:32 IMPRESSION: Mild multilevel degenerative change without evidence of acute bony abnormality of the cervical spine. Foot X-Ray 06/14/20 09:07 IMPRESSION: 1. No definite evidence of acute bony abnormality or definitive findings of osteomyelitis. 2. Midfoot collapse with significant degenerative changes suggestive of Charcot joint. Abdomen Ultrasound 06/16/20 00:00 IMPRESSION: Limited study due to overlying bowel gas. No acute findings. The patient is status post cholecystectomy. No ductal dilatation. Assessment and Plan - Diagnosis (1) Attempted suicide Is this a current diagnosis for this admission?: Yes Plan: Continue suicide precautions. Mental health services consulted. Have initiated medications per their recommendations; clonidine transdermal patch, BuSpar, Lexapro. Will obtain EKG to evaluate QTc interval; if appropriate, will start Haldol per their recommendations. Supportive care. (2) Drug overdose, intentional Qualifiers: Encounter type: subsequent encounter Qualified Code(s): T50.902D - Poisoning by unspecified drugs, medicaments and biological substances, intentional self-harm, subsequent encounter Is this a current diagnosis for this admission?: Yes Plan: Intentional insulin overdose. Management as outlined elsewhere. (3) Depression Qualifiers: Depression Type: major depressive disorder Active/Remission status: currently active Major depression episode severity: severe Psychotic features: without psychotic features Is this a current diagnosis for this admission?: Yes Plan: Mental health services consulted. Medication recommendations reviewed and implemented. Continue Lexapro, BuSpar, Clonidine. We will check EKG and start Haldol if QTC is appropriate. (4) Aspiration into airway Qualifiers: Encounter type: initial encounter Qualified Code(s): T17.908A - Unspecified foreign body in respiratory tract, part unspecified causing other injury, initial encounter Is this a current diagnosis for this admission?: Yes Plan: Maintaining oxygen saturations on room air. Initial chest x-ray was clear. Leukocytosis has resolved.Remained afebrile. Blood cultures are negative at 4 days. * On Ancef/clindamycin to provide empiric coverage for aspiration and diabetic foot. (5) Diabetes Qualifiers: Diabetes mellitus correction insulin use: with terminal system operator use Is this a current diagnosis for this admission?: Yes Plan: A1c (05/13/2020) 7.0%. Patient is placed on a regular diet. Encourage p.o. intake. Accu-Cheks before meals and at bedtime with Humalog for sliding scale coverage. Hypoglycemia protocol in place. (6) Hypothyroidism Is this a current diagnosis for this admission?: Yes Plan: TSH 0.09. We will obtain T3/T4 Continue home dose levothyroxine 75 mcg daily for now. (7) Diabetic foot infection Is this a current diagnosis for this admission?: Yes Plan: Chronic foot wound followed by IV wound care clinic. Surgery consulted; appreciate Dr. Tan's recommendations. Will order noncontrast MRI to evaluate for osteomyelitis per his recommendations. Wound culture isolated skin mitzi. Currently on Ancef/clindamycin/vancomycin for empiric antibiotic therapy. Stop vancomycin. Finish 7-day course of Ancef/clindamycin. Wound care per surgery's recommendations. (8) Hypomagnesemia Is this a current diagnosis for this admission?: Yes Plan: Replete potassium and magnesium. Famotidine for GI prophylaxis. Follow-up chemistry. (9) Hypokalemia Is this a current diagnosis for this admission?: Yes Plan: Multifactorial secondary to insulin overdose and poor p.o. intake. IV replacement. Follow-up chemistry. (10) Sepsis associated hypotension Is this a current diagnosis for this admission?: Yes Plan: Resolved. Patient did require Levophed for blood pressure support. Cultures and antibiotics as above. * Multifactorial. Secondary to right foot infection, profound hypoglycemia (insulin overdose) and overdose of antihypertensive medications. (11) Hypothermia Qualifiers: Encounter type: subsequent encounter Qualified Code(s): T68.XXXD - Hypothermia, subsequent encounter Is this a current diagnosis for this admission?: Yes Plan: Resolved. Secondary to sepsis, hypotension, insulin overdose. (12) Hypoglycemia associated with diabetes Is this a current diagnosis for this admission?: Yes Plan: Resolved. Monitor closely for recurrence. Hypoglycemia protocol. - Time Time Spent with patient: 35 or more minutes Medications reviewed and adjusted accordingly: Yes Anticipated Discharge Disposition: Psych Hospital/Unit Anticipated Discharge Timeframe: >72 hrs
--- NOTE | 2020-06-18 18:51 | PDOC CRITICAL CARE PROG REPORT ---
General Date:: 06/18/20 ICU Day:: 5 Hospital Day:: 5 Resuscitation Status: Full Code Events in the past 12 to 24 Hours:: This 74-year-old female was admitted on 06/14/2020 after attempted suicide with overdose of insulin and Hyzaar. In the emergency department she did have a bout of emesis and is suspected to have had a gross aspiration event. She has type 2 diabetes mellitus and is an established patient at the [facility] for right diabetic foot, which is undergone multiple debridement. 06/16: She is on norepinephrine at 1 mcg/min. Uncooperative with clinical interview. She does not permit clinical exam. She "just wants to get out of here". She is currently on Flagyl/vancomycin for empiric coverage of right diabetic foot, which is isolating gram-positive cocci. Chest x-ray is clear. However, WBC count is steadily rising 14.4>18.2>19.4. It is still unknown which formulation of insulin the patient used to overdose (nor the specific dose). She continues to require supplemental glucose to maintain normal serum glucose levels. Currently, she is on D5 normal saline for maintenance fluids along with D10 infusion at 20 mL/h. She is off all insulin formulations. Serum creatinine 1.4, slightly improved. After the patient's friend visited, she finally allowed clinical examination. 06/17: Off norepinephrine. Off maintenance IVs. Off D5. Off D10. Sleeping comfortably. No events reported overnight. Magnesium 1.5 this morning. Creatinine 0.9. Glucose 138. WBC down to 14.4. Started Ancef/clindamycin (in addition to vancomycin) for diabetic foot. However, she is back to being uncooperative with care[facility] has been refusing her medications. 06/18: In the interim, the patient was assessed by the psychiatry service and placed under IVC. Unfortunately, the patient continues to demonstrate physically aggressive behavior toward the nurses and passive-aggressive behavior regarding her treatment. She continues to refuse all care. She refused to take her Lexapro yesterday. Curiously, she does tend to have a short period of a couple of hours late in the afternoon when she becomes agreeable to the treatment. This seems to often coincide with the period after her friend and healthcare power of insurance defense attorney (Elaina Murphy) visits. Nonetheless, she feigns sleeping, during which time she does allow a rudimentary physical exam. She is easy to arouse. She says just enough to communicate but she does not want to eat or drink anything. She still wants to . Review of systems relevant to events:: Cardiovascular: Hypotension Endocrine: Hypoglycemia Psychiatric: Major depression with suicide attempt Reason for ICU Addmission:: HYpotension and needing levophed - Medications: Medications reviewed and adjusted accordingly: Yes Physical Exam Vital Signs: Temp Pulse Resp BP Pulse Ox 98.4 F 60 13 172/80 H 98 06/17/20 21:37 06/18/20 10:00 06/18/20 10:00 06/18/20 10:00 06/18/20 10:00 Intake & Output 06/17/20 06/18/20 06/19/20 06:59 06:59 06:59 Intake Total 1 400 100 Output Total 4075 2275 500 Balance -2023 -1874 - Weight 65.8 kg 64.2 kg Weight/Height Weight 64.2 kg Height 1.65 m General appearance: PRESENT: no acute distress, well-developed, well-nourished Head exam: PRESENT: atraumatic, normocephalic Mouth exam: PRESENT: moist, tongue midline Neck exam: ABSENT: carotid bruit, JVD, lymphadenopathy, thyromegaly Respiratory exam: PRESENT: clear to auscultation noreen. ABSENT: rales, rhonchi, wheezes Cardiovascular exam: PRESENT: RRR. ABSENT: diastolic murmur, rubs, systolic mu rmur GI/Abdominal exam: PRESENT: normal bowel sounds, soft. ABSENT: distended, guarding, mass, organolmegaly, rebound, tenderness Musculoskeletal exam: PRESENT: other - right diabetic foot Psychiatric exam: PRESENT: depressed, flat affect Skin exam: PRESENT: other - Right diabetic foot Laboratory/Radiographs Laboratory Results: 06/18/20 03:55 06/18/20 03:55 06/18/20 06/18/20 03:55 03:55 WBC 8.9 RBC 3.73 Hgb 11.1 L Hct 31.8 L MCV 85 MCH 29.8 MCHC 34.9 RDW 13.1 Plt Count 262 Sodium 136.8 L Potassium 3.1 L Chloride 102 Carbon Dioxide 26 Anion Gap 9 BUN 16 Creatinine 0.73 Est GFR ( Amer) > 60 Glucose 136 H Calcium 8.9 Magnesium 1.6 06/14/20 06/14/20 07:25 07:25 Creatine Kinase 104 Troponin I < 0.012 Impressions: Chest X-Ray 06/14/20 07:29 IMPRESSION: NO ACUTE RADIOGRAPHIC FINDING IN THE CHEST. Head CT 06/14/20 07:31 IMPRESSION: NO ACUTE INTRACRANIAL IMAGING FINDINGS. EVIDENCE OF ACUTE STROKE: NO. Cervical Spine CT 06/14/20 07:32 IMPRESSION: Mild multilevel degenerative change without evidence of acute bony abnormality of the cervical spine. Foot X-Ray 06/14/20 09:07 IMPRESSION: 1. No definite evidence of acute bony abnormality or definitive findings of osteomyelitis. 2. Midfoot collapse with significant degenerative changes suggestive of Charcot joint. Abdomen Ultrasound 06/16/20 00:00 IMPRESSION: Limited study due to overlying bowel gas. No acute findings. The patient is status post cholecystectomy. No ductal dilatation. All labs, radiographs, diagnostic studies and EKGs were personally reviewed: Yes In addition, reports of radiographic and diagnostic studies were read: Yes Assessment and Plan - Diagnosis (1) Attempted suicide Is this a current diagnosis for this admission?: Yes Plan: * Continue suicide precautions. * Will again attempt to administer Lexapro. * Start Haldol 5 mg IV every 6 hours. Monitor QTC. * Blpribuh-AAO-2. (2) Aspiration into airway Qualifiers: Encounter type: initial encounter Qualified Code(s): T17.908A - Unspecified foreign body in respiratory tract, part unspecified causing other injury, initial encounter Is this a current diagnosis for this admission?: Yes Plan: * Initial chest x-ray was clear. * On Ancef/clindamycin to provide empiric coverage for aspiration and diabetic foot. WBC count downtrending. (3) Diabetic foot infection Is this a current diagnosis for this admission?: Yes Plan: * Currently on Ancef/clindamycin/vancomycin for empiric antibiotic therapy. * Wound culture isolated skin mitzi. * Stop vancomycin. Finish 7-day course of Ancef/clindamycin. * Under treatment at wound care, seen by Dr. Tan. (4) Hypoglycemia associated with diabetes Is this a current diagnosis for this admission?: Yes Plan: * At this point, the patient is actually requiring sliding scale insulin coverage again. (5) Hypothermia Qualifiers: Encounter type: subsequent encounter Qualified Code(s): T68.XXXD - Hy pothermia, subsequent encounter Is this a current diagnosis for this admission?: Yes (6) Sepsis associated hypotension Is this a current diagnosis for this admission?: Yes (7) Hypomagnesemia Is this a current diagnosis for this admission?: Yes Plan: * Replete potassium and magnesium. * Famotidine for GI prophylaxis. Critical Time Critical Time (minutes): 30 Level of Care: IMCU -: 1. The care of a critical patient is a dynamic process. This note is a sales representative girls' apparel synopsis but static in nature. The timeframe for treatments given in order is not necessarily the actual time these treatments may have been done. 2. This patient requires critical care secondary to ongoing requirements for therapy not offered or safe outside the critical care environment. Transfer to a lower level of care will result in altered life or limb morbidity and mortality. 3. Multidisciplinary rounds completed. 4. ABCDE bundle addressed.
[2020-06-18 20:34] LABS: VANCOMYCIN,TROUGH 8.5 ug/mL (5.0-20.0)
[2020-06-18] MEDS ORDERED: MAGNESIUM SULFATE/D5W 1 GM/100 ML RTUPB IV ONE (21:00)
[2020-06-18] MEDS: VANCOMYCIN HCL 1,000 MG in DEXTROSE 5%-WATER 250 ML IV SCH (21:55)
[2020-06-18] MEDS ORDERED: POTASSIUM CHLORIDE 20 MEQ/50 ML RTU IV ONE (22:00)
[2020-06-18] MEDS: ATORVASTATIN CALCIUM 20 MG TABLET PO SCH (22:18)
[2020-06-18] MEDS: BUSPIRONE HCL 10 MG TABLET PO SCH (22:18)
[2020-06-19] MEDS: CEFAZOLIN 1 GM/D5W RTU 1 GM/50 ML RTUPB IV SCH ×5 (00:31→23:03)
[2020-06-19] MEDS: INSULIN REG, HUMAN 100 UNIT/ML 3 ML VIAL (PYX) SUBCUT SCH ×4 (01:03→21:32)
[2020-06-19] MEDS: CLINDAMYCIN 900 MG/D5W RTU 900 MG/50 ML RTUPB IV SCH ×3 (06:20→21:32)
[2020-06-19 06:28] LABS: HEMATOCRIT 31.6 % (36.0-47.0); HEMOGLOBIN 10.9 g/dL (12.0-15.5); MEAN CORPUSCULAR HEMOGLOBIN 29.8 pg (27.0-33.4); MEAN CORPUSCULAR HGB CONC 34.5 g/dL (32.0-36.0); MEAN CORPUSCULAR VOLUME 86 fl (80-97); PLATELET COUNT 255 10^3/uL (150-450); RED BLOOD COUNT 3.66 10^6/uL (3.72-5.28); RED CELL DISTRIBUTION WIDTH 12.9 % (11.5-14.0); WHITE BLOOD COUNT 9.5 10^3/uL (4.0-10.5)
[2020-06-19] MEDS: LEVOTHYROXINE SODIUM 0.075 MG TABLET PO SCH (06:35)
--- NOTE | 2020-06-19 06:49 | EKG REPORT ---
SEVERITY:- ABNORMAL ECG - SINUS RHYTHM BORDERLINE LEFT AXIS DEVIATION CONSIDER ANTEROSEPTAL INFARCT : Confirmed by: Sixto Malhotra MD 19-Jun-2020 06:48:32
[2020-06-19 06:52] LABS: ALBUMIN 2.6 g/dL (3.5-5.0); ALKALINE PHOSPHATASE 95 U/L (38-126); ANION GAP 8 (5-19); ASPARTATE AMINO TRANSFERASE 26 U/L (14-36); BILIRUBIN,DIRECT 0.1 mg/dL (0.0-0.4); BILIRUBIN,TOTAL 0.4 mg/dL (0.2-1.3); BLOOD UREA NITROGEN 17 mg/dL (7-20); CALCIUM 8.9 mg/dL (8.4-10.2); CARBON DIOXIDE 25 mmol/L (22-30); CHLORIDE 105 mmol/L (98-107); GLUCOSE 164 mg/dL (75-110); PHOSPHORUS 2.7 mg/dL (2.5-4.5); POTASSIUM 3.8 mmol/L (3.6-5.0); TOTAL PROTEIN 5.5 g/dL (6.3-8.2)
[2020-06-19] MEDS ORDERED: METOPROLOL TARTRATE PF/INJ 5 MG/5 ML SDV IV PRN (08:58)
--- NOTE | 2020-06-19 08:59 | PDOC PROGRESS REPORT ---
Subjective Progress Note for:: 06/19/20 Subjective:: No pains on the right foot. Patient claims that she was being followed at the wound care center prior to being recently admitted. She claims that they put the cast on her right foot so she can ambulate without irritating the wound. Apparently this wound has been open off and on for the for the past year or so. Reason For Visit: SEPSIS,DIABETIC FOOT INFECTION,HYPOGLYCEMIA, Physical Exam Vital Signs: Temp Pulse Resp BP Pulse Ox 97.8 F 67 18 185/52 H 99 06/19/20 07:34 06/19/20 07:34 06/19/20 07:34 06/19/20 07:34 06/19/20 07:34 Intake & Output 06/18/20 06/19/20 06/20/20 06:59 06:59 06:59 Intake Total 400 1600 Output Total 2275 1350 Balance -1875 250 Weight 64.2 kg 50.7 kg Exam: The wound at the mid plantar area on the right foot appears to be dry and relatively clean. Roughly measures about 1-1/2 cm in diameter. There is no discharge. There is an area of dark discoloration medial to it roughly measuring about 1 cm in diameter. There is no inflammation around this area nor around the area of the wound itself. Results Laboratory Results: 06/19/20 05:58 06/19/20 05:58 06/19/20 06/19/20 05:58 05:58 WBC 9.5 RBC 3.66 L Hgb 10.9 L Hct 31.6 L MCV 86 MCH 29.8 MCHC 34.5 RDW 12.9 Plt Count 255 Sodium 138.1 Potassium 3.8 Chloride 105 Carbon Dioxide 25 Anion Gap 8 BUN 17 Creatinine 0.71 Est GFR ( Amer) > 60 Glucose 164 H Calcium 8.9 Phosphorus 2.7 Magnesium 2.1 Total Bilirubin 0.4 AST 26 Alkaline Phosphatase 95 Total Protein 5.5 L Albumin 2.6 L 06/14/20 07:54 Blood Blood Culture - Final NO GROWTH IN 5 DAYS 06/14/20 07:25 Blood Blood Culture - Final NO GROWTH IN 5 DAYS 06/14/20 06/14/20 07:25 07:25 Creatine Kinase 104 Troponin I < 0.012 Impressions: Chest X-Ray 06/14/20 07:29 IMPRESSION: NO ACUTE RADIOGRAPHIC FINDING IN THE CHEST. Head CT 06/14/20 07:31 IMPRESSION: NO ACUTE INTRACRANIAL IMAGING FINDINGS. EVIDENCE OF ACUTE STROKE: NO. Cervical Spine CT 06/14/20 07:32 IMPRESSION: Mild multilevel degenerative change without evidence of acute bony abnormality of the cervical spine. Foot X-Ray 06/14/20 09:07 IMPRESSION: 1. No definite evidence of acute bony abnormality or definitive fi ndings of osteomyelitis. 2. Midfoot collapse with significant degenerative changes suggestive of Charcot joint. Abdomen Ultrasound 06/16/20 00:00 IMPRESSION: Limited study due to overlying bowel gas. No acute findings. The patient is status post cholecystectomy. No ductal dilatation. Assessment & Plan - Diagnosis (1) Chronic foot ulcer Qualifiers: Laterality: right Non-pressure ulcer stage: with fat layer exposed Qualified Code(s): L97.512 - Non-pressure chronic ulcer of other part of right foot with fat layer exposed Is this a current diagnosis for this admission?: Yes - Time Critical Time spent with patient: 15-24 minutes Anticipated Discharge Disposition: Psych Hospital/Unit Anticipated Discharge Timeframe: within 72 hours - Inpatient Certification Medical Necessity: Need for IV Antibiotics - Plan Summary Plan Summary: 74-year-old female diabetic with chronic wound on the right foot being followed at the wound care center. Patient is alert and oriented x3 this morning and had a better history from the patient. She apparently was just seen at the wound care center and being followed there with placement of cast just prior to admission. Apparently one of her reasons for admission was for suicidal attempt and therefore questionable to discharge her at home at this time. At any rate, an MRI of the right foot could be done if you she is agreeable. Otherwise, she can be continued to be followed up at the wound care center. I do not think she needs any emergency surgical procedure to be done at this time. We will sign off and just call for any questions. If she gets an MRI then does inform the surgical is sewing machines salesperson to follow-up.
[2020-06-19] MEDS: ENOXAPARIN SODIUM INJ 40 MG/0.4 ML DISP.SYRIN SUBCUT SCH (09:44)
[2020-06-19] MEDS: FOLIC ACID 1 MG TABLET PO SCH (09:44)
[2020-06-19] MEDS: LOSARTAN POTASSIUM 50 MG TABLET PO SCH (09:44)
[2020-06-19] MEDS: ESCITALOPRAM OXALATE 10 MG TABLET PO SCH (09:44)
[2020-06-19] MEDS: HYDROCHLOROTHIAZIDE 12.5 MG TABLET PO SCH (09:44)
[2020-06-19] MEDS: BUSPIRONE HCL 10 MG TABLET PO SCH ×2 (09:45→21:31)
[2020-06-19] MEDS: PRASUGREL HCL 10 MG TABLET PO SCH (09:58)
[2020-06-19] MEDS: FAMOTIDINE INJ/PF 20 MG/2 ML SDV IV SCH ×2 (09:58→21:32)
[2020-06-19] MEDS ORDERED: (PENDING PHARMACY ID) (Losartan/Hydrochlorothiazide [Losartan-Hctz 50-12.5 Mg Tab] 1 EACH) PO SCH (10:00)
[2020-06-19] MEDS ORDERED: VANCOMYCIN HCL 500 MG in DEXTROSE 5%-WATER 100 ML IV SCH (10:00)
[2020-06-19] MEDS ORDERED: DEXTROSE 40% GEL 15 GM TUBE X 2 PO PRN (12:00)
[2020-06-19] MEDS ORDERED: GLUCAGON,HUMAN RECOMB 1 MG INJ IM PRN (12:00)
[2020-06-19] MEDS ORDERED: DEXTROSE 50%-WATER SYRINGE 12.5 GM/25 ML DOSE IV PRN (12:00)
[2020-06-19] MEDS ORDERED: DEXTROSE 40% GEL 15 GM TUBE PO PRN (12:00)
[2020-06-19] MEDS ORDERED: DEXTROSE 50%-WATER SYRINGE 25 GM/50 ML DOSE IV PRN (12:00)
--- NOTE | 2020-06-19 12:07 | PDOC PROGRESS REPORT ---
Subjective Progress Note for:: 06/19/20 Subjective:: The patient is a 74-year-old female with a past medical history significant for Insulin-dependent diabetes mellitus, hypertension, hyperlipidemia, hypothyroidism, and chronic foot wound followed by the surgical clinic who was admitted 06/14/2020 with presumed sepsis with associated hypotension, hypothermia and hypoglycemia but subsequently found to have attempted suicide by intentional insulin overdose (Lantus and Humalog) and possibly losartan. The patient initially required Levophed for blood pressure support; this has been successfully weaned off. She also required D10 maintenance fluids to maintain blood glucose with frequent correction utilizing D50 pushes. Dextrose drips have been discontinued x24 hours with stable blood glucose greater than 130. She has been downgraded to the medical floor and care transitioned to the hospitalist team. Patient was seen on morning rounds. She is found resting in bed, comfortably, on room air. She is A&O x4. She reports she is feeling well today. States her appetite is increased. Denies all concerns; specifically no fever, chills, chest pain, palpitations, dyspnea, cough, abdominal pain, nausea vomiting. She has no questions at this time. No concerns per nursing Reason For Visit: SEPSIS,DIABETIC FOOT INFECTION,HYPOGLYCEMIA, Physical Exam Vital Signs: Temp Pulse Resp BP Pulse Ox 97.8 F 67 18 185/52 H 99 06/19/20 10:00 06/19/20 07:34 06/19/20 07:34 06/19/20 07:34 06/19/20 07:34 Intake & Output 06/18/20 06/19/20 06/20/20 06:59 06:59 06:59 Intake Total 400 1600 100 Output Total 2275 1350 Balance -1875 250 100 Weight 64.2 kg 50.7 kg General appearance: PRESENT: no acute distress, cooperative, thin, well- developed, well-nourished Head exam: PRESENT: atraumatic, normocephalic Eye exam: PRESENT: conjunctiva pink, EOMI, PERRLA. ABSENT: scleral icterus Mouth exam: PRESENT: moist, tongue midline Respiratory exam: PRESENT: clear to auscultation noreen, symmetrical, unlabored, other - Room. ABSENT: rales, rhonchi, wheezes Cardiovascular exam: PRESENT: RRR. ABSENT: diastolic murmur, rubs, systolic murmur Pulses: PRESENT: normal dorsalis pedis pul Vascular exam: PRESENT: normal capillary refill Gentrourinary exam: PRESENT: indwelling catheter Extremities exam: PRESENT: full ROM. ABSENT: calf tenderness, clubbing, pedal edema Neurological exam: PRESENT: alert, awake, oriented to person, oriented to place, oriented to time, oriented to situation, CN II-XII grossly intact. ABSENT: m otor sensory deficit Psychiatric exam: PRESENT: appropriate affect, normal mood. ABSENT: homicidal ideation, suicidal ideation Skin exam: PRESENT: dry, warm, other - Right chronic foot wound (POA). ABSENT: cyanosis, rash Results Laboratory Results: 06/19/20 05:58 06/19/20 05:58 06/19/20 06/19/20 05:58 05:58 WBC 9.5 RBC 3.66 L Hgb 10.9 L Hct 31.6 L MCV 86 MCH 29.8 MCHC 34.5 RDW 12.9 Plt Count 255 Sodium 138.1 Potassium 3.8 Chloride 105 Carbon Dioxide 25 Anion Gap 8 BUN 17 Creatinine 0.71 Est GFR ( Amer) > 60 Glucose 164 H Calcium 8.9 Phosphorus 2.7 Magnesium 2.1 Total Bilirubin 0.4 AST 26 Alkaline Phosphatase 95 Total Protein 5.5 L Albumin 2.6 L 06/14/20 07:54 Blood Blood Culture - Final NO GROWTH IN 5 DAYS 06/14/20 07:25 Blood Blood Culture - Final NO GROWTH IN 5 DAYS 06/14/20 06/14/20 07:25 07:25 Creatine Kinase 104 Troponin I < 0.012 Impressions: Chest X-Ray 06/14/20 07:29 IMPRESSION: NO ACUTE RADIOGRAPHIC FINDING IN THE CHEST. Head CT 06/14/20 07:31 IMPRESSION: NO ACUTE INTRACRANIAL IMAGING FINDINGS. EVIDENCE OF ACUTE STROKE: NO. Cervical Spine CT 06/14/20 07:32 IMPRESSION: Mild multilevel degenerative change without evidence of acute bony abnormality of the cervical spine. Foot X-Ray 06/14/20 09:07 IMPRESSION: 1. No definite evidence of acute bony abnormality or definitive findings of osteomyelitis. 2. Midfoot collapse with significant degenerative changes suggestive of Charcot joint. Abdomen Ultrasound 06/16/20 00:00 IMPRESSION: Limited study due to overlying bowel gas. No acute findings. The patient is status post cholecystectomy. No ductal dilatation. Assessment and Plan - Diagnosis (1) Attempted suicide Is this a current diagnosis for this admission?: Yes Plan: Continue suicide precautions. Mental health services consulted. Have initiated medications per their recommendations; clonidine transdermal patch, BuSpar, Lexapro. Start Haldol. Monitor QTc interval. Supportive care. (2) Drug overdose, intentional Qualifiers: Encounter type: subsequent encounter Qualified Code(s): T50.902D - Poisoning by unspecified drugs, medicaments and biological substances, intentional self-harm, subsequent encounter Is this a current diagnosis for this admission?: Yes Plan: Intentional insulin overdose. Management as outlined elsewhere. (3) Depression Qualifiers: Depression Type: major depressive disorder Active/Remission status: currently active Major depression episode severity: severe Psychotic features: without psychotic features Is this a current diagnosis for this admission?: Yes Plan: Mental health services consulted. Medication recommendations reviewed and implemented. Continue Lexapro, BuSpar, Clonidine. Start Haldol. (4) Aspiration into airway Qualifiers: Encounter type: initial encounter Qualified Code(s): T17.908A - Unspecified foreign body in respiratory tract, part unspecified causing other injury, initial encounter Is this a current diagnosis for this admission?: Yes Plan: Maintaining oxygen saturations on room air. Initial chest x-ray was clear. Leukocytosis has resolved. Remained afebrile. Blood cultures are negative * On Ancef/clindamycin to provide empiric coverage for aspiration and diabetic foot. (5) Diabetes Qualifiers: Diabetes mellitus manager terminal insulin use: with care home use Is this a current diagnosis for this admission?: Yes Plan: A1c (05/13/2020) 7.0%. Patient is placed on a regular diet. Encourage p.o. intake. Accu-Cheks before meals and at bedtime with Humalog for sliding scale coverage. Hypoglycemia protocol in place. (6) Hypothyroidism Is this a current diagnosis for this admission?: Yes Plan: TSH 0.09. We will obtain T3/T4 Continue home dose levothyroxine 75 mcg daily for now. (7) Diabetic foot infection Is this a current diagnosis for this admission?: Yes Plan: Chronic foot wound followed by IV wound care clinic. Surgery consulted; appreciate Dr. Tan's recommendations. Will order noncontrast MRI to evaluate for osteomyelitis per his r ecommendations. Wound culture isolated skin mitzi. Currently on Ancef/clindamycin/vancomycin for empiric antibiotic therapy. Stop vancomycin. Finish 7-day course of Ancef/clindamycin. Wound care per surgery's recommendations. Recommend nonweightbearing. Reconsult surgery pending MRI results. (8) Hypomagnesemia Is this a current diagnosis for this admission?: Yes Plan: Replete. (9) Hypokalemia Is this a current diagnosis for this admission?: Yes Plan: Replete. (10) Sepsis associated hypotension Is this a current diagnosis for this admission?: Yes Plan: Resolved. Patient did require Levophed for blood pressure support. Cultures and antibiotics as above. * Multifactorial. Secondary to right foot infection, profound hypoglycemia (insulin overdose) and overdose of antihypertensive medications. (11) Hypothermia Qualifiers: Encounter type: subsequent encounter Qualified Code(s): T68.XXXD - Hypothermia, subsequent encounter Is this a current diagnosis for this admission?: Yes Plan: Resolved. Secondary to sepsis, hypotension, insulin overdose. (12) Hypoglycemia associated with diabetes Is this a current diagnosis for this admission?: Yes Plan: Resolved. Monitor closely for recurrence. Hypoglycemia protocol. (13) Hypertension Is this a current diagnosis for this admission?: Yes Plan: Discontinue midodrine. Resume home dose losartan/HCTZ. IV Lopressor as needed. - Time Time Spent with patient: 25-34 minutes Medications reviewed and adjusted accordingly: Yes Anticipated Discharge Disposition: Psych Hospital/Unit Anticipated Discharge Timeframe: completing course of abx; anticipate medical cl earance for s/d on 06/21
[2020-06-19] MEDS: ATORVASTATIN CALCIUM 20 MG TABLET PO SCH (21:31)
[2020-06-20] MEDS: LEVOTHYROXINE SODIUM 0.075 MG TABLET PO SCH (05:27)
[2020-06-20] MEDS: CLINDAMYCIN 900 MG/D5W RTU 900 MG/50 ML RTUPB IV SCH ×3 (05:27→21:25)
[2020-06-20] MEDS: CEFAZOLIN 1 GM/D5W RTU 1 GM/50 ML RTUPB IV SCH ×4 (05:27→23:17)
[2020-06-20] MEDS: INSULIN REG, HUMAN 100 UNIT/ML 3 ML VIAL (PYX) SUBCUT SCH ×4 (08:02→22:27)
[2020-06-20] MEDS ORDERED: FLUOXETINE HCL 20 MG CAPSULE PO SCH (10:00)
[2020-06-20] MEDS: FAMOTIDINE INJ/PF 20 MG/2 ML SDV IV SCH ×2 (10:24→21:26)
[2020-06-20] MEDS: PRASUGREL HCL 10 MG TABLET PO SCH (10:26)
[2020-06-20] MEDS: LOSARTAN POTASSIUM 50 MG TABLET PO SCH (10:26)
[2020-06-20] MEDS: FOLIC ACID 1 MG TABLET PO SCH (10:26)
[2020-06-20] MEDS: BUSPIRONE HCL 10 MG TABLET PO SCH ×2 (10:26→21:25)
[2020-06-20] MEDS: FLUOXETINE HCL 20 MG/5 ML UDCUP PO SCH (10:26)
[2020-06-20] MEDS: HYDROCHLOROTHIAZIDE 12.5 MG TABLET PO SCH (10:26)
[2020-06-20] MEDS: ENOXAPARIN SODIUM INJ 40 MG/0.4 ML DISP.SYRIN SUBCUT SCH (10:27)
--- NOTE | 2020-06-20 11:07 | PDOC PROGRESS REPORT ---
Subjective Progress Note for:: 06/20/20 Subjective:: The patient is a 74-year-old female with a past medical history significant for Insulin-dependent diabetes mellitus, hypertension, hyperlipidemia, hypothyroidism, and chronic foot wound followed by the surgical clinic who was admitted 06/14/2020 with presumed sepsis with associated hypotension, hypothermia and hypoglycemia but subsequently found to have attempted suicide by intentional insulin overdose (Lantus and Humalog) and possibly losartan. The patient initially required Levophed for blood pressure support; this has been successfully weaned off. She also required D10 maintenance fluids to maintain blood glucose with frequent correction utilizing D50 pushes. Now with stable glucose. She has been downgraded to the medical floor and care transitioned to the hospitalist team. Patient was seen on morning rounds. She is found resting in bed, comfortably, on room air. She was asleep, but vandana easily. She is A&O x4. She reports she is feeling well today; just tired. Denies all concerns; specifically no fever, chills, chest pain, palpitations, dyspnea, cough, abdominal pain, nausea vomiting. Reprots good appetite; 100% of meals yesterday. She has no questions at this time. No concerns per nursing Reason For Visit: SEPSIS,DIABETIC FOOT INFECTION,HYPOGLYCEMIA, Physical Exam Vital Signs: Temp Pulse Resp BP Pulse Ox 97.5 F 70 18 170/63 H 97 06/20/20 08:33 06/20/20 08:04 06/20/20 08:04 06/20/20 08:04 06/20/20 08:04 Intake & Output 06/19/20 06/20/20 06/21/20 06:59 06:59 06:59 Intake Total 1600 1460 Output Total 1350 1150 Balance 250 310 Weight 50.7 kg 51.3 kg General appearance: PRESENT: no acute distress, disheveled, thin, well- developed, well-nourished Head exam: PRESENT: atraumatic, normocephalic Eye exam: PRESENT: conjunctiva pink, EOMI, PERRLA. ABSENT: scleral icterus Mouth exam: PRESENT: moist, tongue midline Respiratory exam: PRESENT: clear to auscultation noreen, symmetrical, unlabored. ABSENT: rales, rhonchi, wheezes Cardiovascular exam: PRESENT: RRR. ABSENT: diastolic murmur, rubs, systolic murmur Pulses: PRESENT: normal dorsalis pedis pul Vascular exam: PRESENT: normal capillary refill Extremities exam: PRESENT: full ROM. ABSENT: calf tenderness, clubbing, pedal edema Neurological exam: PRESENT: alert, awake, oriented to person, oriented to place, oriented to time, oriented to situation, CN II-XII grossly intact. ABSENT: motor sensory deficit Psychiatric exam: PRESENT: flat affect, normal mood Skin exam: PRESENT: dry, warm, other - Right chronic foot wound (POA). ABSENT: cyanosis, rash Results Laboratory Results: 06/19/20 05:58 06/19/20 05:58 06/14/20 07:54 Blood Blood Culture - Final NO GROWTH IN 5 DAYS 06/14/20 07:25 Blood Blood Culture - Final NO GROWTH IN 5 DAYS 06/14/20 06/14/20 07:25 07:25 Creatine Kinase 104 Troponin I < 0.012 Impressions: Chest X-Ray 06/14/20 07:29 IMPRESSION: NO ACUTE RADIOGRAPHIC FINDING IN THE CHEST. Head CT 06/14/20 07:31 IMPRESSION: NO ACUTE INTRACRANIAL IMAGING FINDINGS. EVIDENCE OF ACUTE STROKE: NO. Cervical Spine CT 06/14/20 07:32 IMPRESSION: Mild multilevel degenerative change without evidence of acute bony abnormality of the cervical spine. Foot X-Ray 06/14/20 09:07 IMPRESSION: 1. No definite evidence of acute bony abnormality or definitive findings of osteomyelitis. 2. Midfoot collapse with significant degenerative changes suggestive of Charcot joint. Abdomen Ultrasound 06/16/20 00:00 IMPRESSION: Limited study due to overlying bowel gas. No acute findings. The patient is status post cholecystectomy. No ductal dilatation. Assessment and Plan - Diagnosis (1) Attempted suicide Is this a current diagnosis for this admission?: Yes Plan: Continue suicide precautions. Mental health services consulted. Have initiated medications per their recommendations; clonidine transdermal patch, BuSpar. Start Haldol. Stop lexapro, start prozac per mental health. Monitor QTc interval. Supportive care. (2) Drug overdose, intentional Qualifiers: Encounter type: subsequent encounter Qualified Code(s): T50.902D - Poisoning by unspecified drugs, medicaments and biological substances, intentional self-harm, subsequent encounter Is this a current diagnosis for this admission?: Yes Plan: Intentional insulin overdose. Management as outlined elsewhere. (3) Depression Qualifiers: Depression Type: major depressive disorder Active/Remission status: currently active Major depression episode severity: severe Psychotic features: without psychotic features Is this a current diagnosis for this admission?: Yes Plan: Mental health services consulted. Medication recommendations reviewed and implemented. Continue BuSpar, Clonidine. Stop Lexapro, start Prozac. Start Haldol. (4) Aspiration into airway Qualifiers: Encounter type: initial encounter Qualified Code(s): T17.908A - Unspecified foreign body in respiratory tract, part unspecified causing other injury, ini tial encounter Is this a current diagnosis for this admission?: Yes Plan: Maintaining oxygen saturations on room air. Initial chest x-ray was clear. Leukocytosis has resolved. Remained afebrile. Blood cultures are negative * On Ancef/clindamycin to provide empiric coverage for aspiration and diabetic foot. Day #5/7 (5) Diabetes Qualifiers: Diabetes mellitus terminal make up operator insulin use: with correction use Diabetes mellitus complication status: with skin complications Diabetes mellitus complication detail: with foot ulcer Is this a current diagnosis for this admission?: Yes Plan: A1c (05/13/2020) 7.0%. Patient is placed on a regular diet. Encourage p.o. intake. Accu-Cheks before meals and at bedtime with Humalog for sliding scale coverage. Hypoglycemia protocol in place. (6) Hypothyroidism Is this a current diagnosis for this admission?: Yes Plan: TSH 0.09. We will obtain T3/T4 Continue home dose levothyroxine 75 mcg daily for now. (7) Diabetic foot infection Is this a current diagnosis for this admission?: Yes Plan: Chronic foot wound followed by [facility] wound care clinic. Surgery consulted; appreciate Dr. Tan's recommendations. Will order noncontrast MRI to evaluate for osteomyelitis per his recommendations. Wound culture isolated skin mitzi. Currently on Ancef/clindamycin/vancomycin for empiric antibiotic therapy. Stop vancomycin. Continue Ancef/clindamycin; Day #5/7 Wound care per surgery's recommendations. Recommend nonweightbearing. Reconsult surgery pending MRI results. (8) Hypomagnesemia Is this a current diagnosis for this admission?: Yes Plan: Replete. (9) Hypokalemia Is this a current diagnosis for this admission?: Yes Plan: Replete. (10) Sepsis associated hypotension Is this a current diagnosis for this admission?: Yes Plan: Resolved. Patient did require Levophed for blood pressure support. Cultures and antibiotics as above. * Multifactorial. Secondary to right foot infection, profound hypoglycemia (in sulin overdose) and overdose of antihypertensive medications. (11) Hypothermia Qualifiers: Encounter type: subsequent encounter Qualified Code(s): T68.XXXD - Hypothermia, subsequent encounter Is this a current diagnosis for this admission?: Yes Plan: Resolved. Secondary to sepsis, hypotension, insulin overdose. (12) Hypoglycemia associated with diabetes Is this a current diagnosis for this admission?: Yes Plan: Resolved. Monitor closely for recurrence. Hypoglycemia protocol. (13) Hypertension Is this a current diagnosis for this admission?: Yes Plan: Blood pressures remain elevated Discontinue midodrine. Resume home dose losartan/HCTZ. Start cavedilol. Continue Clonidine TD patch. IV Lopressor as needed. - Time Time Spent with patient: 25-34 minutes Medications reviewed and adjusted accordingly: Yes Anticipated Discharge Disposition: Psych Hospital/Unit Anticipated Discharge Timeframe: within 48 hours
[2020-06-20] MEDS: ATORVASTATIN CALCIUM 20 MG TABLET PO SCH (21:25)
[2020-06-20] MEDS: CARVEDILOL 6.25 MG TABLET PO SCH (21:25)
[2020-06-21] MEDS: LEVOTHYROXINE SODIUM 0.075 MG TABLET PO SCH (05:28)
[2020-06-21] MEDS: CLINDAMYCIN 900 MG/D5W RTU 900 MG/50 ML RTUPB IV SCH ×2 (05:28→15:32)
[2020-06-21] MEDS: CEFAZOLIN 1 GM/D5W RTU 1 GM/50 ML RTUPB IV SCH ×3 (05:28→18:00)
[2020-06-21 06:02] LABS: HEMATOCRIT 30.5 % (36.0-47.0); HEMOGLOBIN 10.4 g/dL (12.0-15.5); MEAN CORPUSCULAR HEMOGLOBIN 29.2 pg (27.0-33.4); MEAN CORPUSCULAR VOLUME 86 fl (80-97); PLATELET COUNT 266 10^3/uL (150-450); RED BLOOD COUNT 3.55 10^6/uL (3.72-5.28); RED CELL DISTRIBUTION WIDTH 12.9 % (11.5-14.0); WHITE BLOOD COUNT 9.2 10^3/uL (4.0-10.5)
[2020-06-21 06:19] LABS: ANION GAP 8 (5-19); BLOOD UREA NITROGEN 17 mg/dL (7-20); CARBON DIOXIDE 26 mmol/L (22-30); CHLORIDE 102 mmol/L (98-107); GLUCOSE 148 mg/dL (75-110); POTASSIUM 4.2 mmol/L (3.6-5.0)
[2020-06-21 06:32] LABS: FREE T3 2.57 pg/mL (2.77-5.27); FREE T4 (FREE THYROXINE) 1.32 ng/dL (0.78-2.19)
[2020-06-21] MEDS: INSULIN REG, HUMAN 100 UNIT/ML 3 ML VIAL (PYX) SUBCUT SCH ×3 (08:48→18:02)
[2020-06-21] MEDS: BUSPIRONE HCL 10 MG TABLET PO SCH (10:47)
[2020-06-21] MEDS: FOLIC ACID 1 MG TABLET PO SCH (10:48)
[2020-06-21] MEDS: CARVEDILOL 6.25 MG TABLET PO SCH (10:48)
[2020-06-21] MEDS: LOSARTAN POTASSIUM 50 MG TABLET PO SCH (10:49)
[2020-06-21] MEDS: PRASUGREL HCL 10 MG TABLET PO SCH (10:50)
[2020-06-21] MEDS: HYDROCHLOROTHIAZIDE 12.5 MG TABLET PO SCH (10:50)
[2020-06-21] MEDS: FLUOXETINE HCL 20 MG/5 ML UDCUP PO SCH (10:50)
[2020-06-21] MEDS: FAMOTIDINE INJ/PF 20 MG/2 ML SDV IV SCH (10:53)
[2020-06-21] MEDS: ENOXAPARIN SODIUM INJ 40 MG/0.4 ML DISP.SYRIN SUBCUT SCH (10:53)
--- NOTE | 2020-06-21 11:14 | PDOC PROGRESS REPORT ---
Subjective Date:: 06/21/20 Subjective:: The patient is a 74-year-old female with a past medical history significant for Insulin-dependent diabetes mellitus, hypertension, hyperlipidemia, hypothyroidism, and chronic foot wound followed by the surgical clinic who was admitted 06/14/2020 with presumed sepsis with associated hypotension, hypothermia and hypoglycemia but subsequently found to have attempted suicide by intentional insulin overdose (Lantus and Humalog) and possibly losartan. The patient initially required Levophed for blood pressure support; this has been successfully weaned off. She also required D10 maintenance fluids to maintain blood glucose with frequent correction utilizing D50 pushes. Now with stable glucose. She has been downgraded to the medical floor and care transitioned to the hospitalist team. Patient was seen on morning rounds. She is found resting in bed, comfortably, on room air. She is A&O x4. She reports she is feeling well today; just tired. Glad to learn that we will be consulting her wound care nurse and obtaining her walking cast/boot so that she can begin ambulating. Denies all concerns; specifically no fever, chills, chest pain, palpitations, dyspnea, cough, abdominal pain, nausea vomiting. Reports good appetite; most of her meals yesterday. She has no questions at this time. No concerns per nursing Reason For Visit: SEPSIS,DIABETIC FOOT INFECTION,HYPOGLYCEMIA, Physical Exam Vital Signs: Temp Pulse Resp BP Pulse Ox 97.9 F 62 16 156/63 H 99 06/21/20 08:22 06/21/20 08:22 06/21/20 08:22 06/21/20 08:22 06/21/20 08:22 Intake & Output 06/20/20 06/21/20 06/22/20 06:59 06:59 06:59 Intake Total 1460 910 100 Output Total 1150 Balance 310 910 100 Weight 51.3 kg 50.8 kg General appearance: PRESENT: no acute distress, cooperative, disheveled, thin, well-developed, well-nourished Head exam: PRESENT: atraumatic, normocephalic Eye exam: PRESENT: conjunctiva pink, EOMI, PERRLA. ABSENT: scleral icterus Mouth exam: PRESENT: moist, tongue midline Respiratory exam: PRESENT: clear to auscultation noreen, symmetrical, unlabored, other - room air. ABSENT: rales, rhonchi, wheezes Cardiovascular exam: PRESENT: RRR. ABSENT: diastolic murmur, rubs, systolic murmur Pulses: PRESENT: normal dorsalis pedis pul Vascular exam: PRESENT: normal capillary refill Extremities exam: PRESENT: full ROM. ABSENT: calf tenderness, clubbing, pedal edema Neurological exam: PRESENT: alert, awake, oriented to person, oriented to place, oriented to time, oriented to situation, CN II-XII grossly intact. ABSENT: motor sensory deficit Psychiatric exam: PRESENT: flat affect, normal mood. ABSENT: homicidal ideation, suicidal ideation Skin exam: PRESENT: dry, warm, other - right plantar foot wound (POA); irregularly shaped. Approx 1 cm x 2cm. Has been surgically debrided. Wet to dry dressing in place. No surrounding erythema, edema, or drainage.. ABSENT: cyanosis, intact, rash Results Laboratory Results: 06/21/20 05:20 06/21/20 05:20 06/21/20 06/21/20 06/21/20 05:20 05:20 05:20 WBC 9.2 RBC 3.55 L Hgb 10.4 L Hct 30.5 L MCV 86 MCH 29.2 MCHC 34.0 RDW 12.9 Plt Count 266 Sodium 135.7 L Potassium 4.2 Chloride 102 Carbon Dioxide 26 Anion Gap 8 BUN 17 Creatinine 0.72 Est GFR ( Amer) > 60 Glucose 148 H Calcium 9.0 Free T4 1.32 Free T3 pg/mL 2.57 L 06/14/20 06/14/20 07:25 07:25 Creatine Kinase 104 Troponin I < 0.012 Impressions: Chest X-Ray 06/14/20 07:29 IMPRESSION: NO ACUTE RADIOGRAPHIC FINDING IN THE CHEST. Head CT 06/14/20 07:31 IMPRESSION: NO ACUTE INTRACRANIAL IMAGING FINDINGS. EVIDENCE OF ACUTE STROKE: NO. Cervical Spine CT 06/14/20 07:32 IMPRESSION: Mild multilevel degenerative change without evidence of acute bony abnormality of the cervical spine. Foot X-Ray 06/14/20 09:07 IMPRESSION: 1. No definite evidence of acute bony abnormality or definitive findings of osteomyelitis. 2. Midfoot collapse with significant degenerative changes suggestive of Charcot joint. Abdomen Ultrasound 06/16/20 00:00 IMPRESSION: Limited study due to overlying bowel gas. No acute findings. The patient is status post cholecystectomy. No ductal dilatation. Assessment and Plan - Diagnosis (1) Attempted suicide Is this a current diagnosis for this admission?: Yes Plan: Continue suicide precautions. Mental health services consulted. Have initiated medications per their recommendations; Prozac, clonidine transdermal patch, BuSpar and Haldol. Monitor QTc interval. Supportive care. (2) Drug overdose, intentional Qualifiers: Encounter type: subsequent encounter Qualified Code(s): T50.902D - Poiso gela by unspecified drugs, medicaments and biological substances, intentional self-harm, subsequent encounter Is this a current diagnosis for this admission?: Yes Plan: Intentional insulin overdose. Management as outlined elsewhere. (3) Depression Qualifiers: Depression Type: major depressive disorder Active/Remission status: currently active Major depression episode severity: severe Psychotic features: without psychotic features Is this a current diagnosis for this admission?: Yes Plan: Mental health services consulted. Medication recommendations reviewed and implemented. (4) Aspiration into airway Qualifiers: Encounter type: initial encounter Qualified Code(s): T17.908A - Unspecified foreign body in respiratory tract, part unspecified causing other injury, initial encounter Is this a current diagnosis for this admission?: Yes Plan: Maintaining oxygen saturations on room air. Initial chest x-ray was clear. Leukocytosis has resolved. Remained afebrile. Blood cultures are negative * On Ancef/clindamycin to provide empiric coverage for aspiration and diabetic foot. Day #6/7 (5) Diabetes Qualifiers: Diabetes mellitus residential insulin use: with residential use Diabetes mellitus complication status: with skin complications Diabetes mellitus complication detail: with foot ulcer Is this a current diagnosis for this admission?: Yes Plan: A1c (05/13/2020) 7.0%. Patient is placed on a regular diet. Encourage p.o. intake. Accu-Cheks before meals and at bedtime with Humalog for sliding scale coverage. Hypoglycemia protocol in place. (6) Hypothyroidism Is this a current diagnosis for this admission?: Yes Plan: Thyroid panel is acceptable. Continue home dose levothyroxine 75 mcg daily. (7) Diabetic foot infection Is this a current diagnosis for this admission?: Yes Plan: Chronic foot wound followed by outpatient wound care clinic. Surgery consulted; appreciate Dr. Tan's recommendations. MRI pending; can be done as an outpatient. Wound culture isolated skin mitzi. Currently on Ancef/clindamycin/vancomycin for empiric antibiotic therapy. Stop vancomycin. Continue Ancef/clindamycin; Day #6/7 Wound care consulted. Can weight-bear once recommendations have been received so long as she is wearing her walking cast/boot. Outpatient follow up with Wound Care clinic. (8) Hypertension Is this a current diagnosis for this admission?: Yes Plan: Blood pressures remain elevated; overall improved. Discontinue midodrine. Resume home dose losartan/HCTZ. Start cavedilol. Continue Clonidine TD patch. IV Lopressor as needed. Further outpatient management per PCP (9) Hypomagnesemia Is this a current diagnosis for this admission?: Yes Plan: Replete. (10) Hypokalemia Is this a current diagnosis for this admission?: Yes Plan: Replete. (11) Sepsis associated hypotension Is this a current diagnosis for this admission?: Yes Plan: Resolved. Patient did require Levophed for blood pressure support. Cultures and antibiotics as above. * Multifactorial. Secondary to right foot infection, profound hypoglycemia (insulin overdose) and overdose of antihypertensive medications. (12) Hypothermia Qualifiers: Encounter type: subsequent encounter Qualified Code(s): T68.XXXD - Hypother sumaya, subsequent encounter Is this a current diagnosis for this admission?: Yes Plan: Resolved. Secondary to sepsis, hypotension, insulin overdose. (13) Hypoglycemia associated with diabetes Is this a current diagnosis for this admission?: Yes Plan: Resolved. Monitor closely for recurrence. Hypoglycemia protocol. - Time Time Spent with patient: 25-34 minutes Medications reviewed and adjusted accordingly: Yes Anticipated Discharge Disposition: Psych Hospital/Unit Anticipated Discharge Timeframe: within 24 hours - Patient will be medically cleared on 06/22/20 having completed her course of antibiotics.
[2020-06-22] MEDS: ATORVASTATIN CALCIUM 20 MG TABLET PO SCH (00:24)
[2020-06-22] MEDS: BUSPIRONE HCL 10 MG TABLET PO SCH ×2 (00:24→09:42)
[2020-06-22] MEDS: CARVEDILOL 6.25 MG TABLET PO SCH ×2 (00:25→09:43)
[2020-06-22] MEDS: INSULIN REG, HUMAN 100 UNIT/ML 3 ML VIAL (PYX) SUBCUT SCH ×4 (00:45→16:40)
[2020-06-22] MEDS: CEFAZOLIN 1 GM/D5W RTU 1 GM/50 ML RTUPB IV SCH ×4 (00:46→16:59)
[2020-06-22] MEDS: CLINDAMYCIN 900 MG/D5W RTU 900 MG/50 ML RTUPB IV SCH ×2 (01:38→07:42)
[2020-06-22] MEDS: FAMOTIDINE INJ/PF 20 MG/2 ML SDV IV SCH ×2 (01:39→10:09)
[2020-06-22] MEDS: LEVOTHYROXINE SODIUM 0.075 MG TABLET PO SCH (06:56)
[2020-06-22] MEDS: LOSARTAN POTASSIUM 50 MG TABLET PO SCH (09:42)
[2020-06-22] MEDS: HYDROCHLOROTHIAZIDE 12.5 MG TABLET PO SCH (09:42)
[2020-06-22] MEDS: FOLIC ACID 1 MG TABLET PO SCH (09:42)
[2020-06-22] MEDS: PRASUGREL HCL 10 MG TABLET PO SCH (09:43)
[2020-06-22] MEDS: FLUOXETINE HCL 20 MG/5 ML UDCUP PO SCH (09:43)
[2020-06-22] MEDS: ENOXAPARIN SODIUM INJ 40 MG/0.4 ML DISP.SYRIN SUBCUT SCH (09:44)
--- NOTE | 2020-06-22 13:59 | RADIOLOGY REPORT (SQ) ---
EXAM DESCRIPTION: MRI RT LOWER EXTREMITY WITHOUT IMAGES COMPLETED DATE/TIME: 06/22/2020 1:19 pm REASON FOR STUDY: ? chronic wound/?osteomyelitis COMPARISON: None. TECHNIQUE: Multiplanar imaging of the right foot to include fat and fluid sensitive sequences. LIMITATIONS: None. FINDINGS: BONE MARROW: There is abnormal decreased T1 and increased T2 signal in the cuboid and base of the 4th and 5th metatarsals. No bone abscess. SOFT TISSUES: Adjacent joint effusion. Skin ulcer plantar aspect of the cuboid. OTHER: No other significant finding. IMPRESSION: Positive for osteomyelitis. TECHNICAL DOCUMENTATION: JOB ID: [id number] [employer]- All Rights Reserved Reading location - IP/workstation name: [email or web address]
--- NOTE | 2020-06-22 15:25 | PDOC PROGRESS REPORT ---
Subjective Date:: 06/22/20 Subjective:: As per admitting physician's note patient is a 74-year-old female with a past medical history significant for Insulin-dependent diabetes mellitus, hypertension, hyperlipidemia, hypothyroidism, and chronic foot wound followed by the surgical clinic who was admitted 06/14/2020 with presumed sepsis with associated hypotension, hypothermia and hypoglycemia but subsequently found to h ave attempted suicide by intentional insulin overdose (Lantus and Humalog) and possibly losartan. The patient initially required Levophed for blood pressure support; this has been successfully weaned off. She also required D10 maintenance fluids to maintain blood glucose with frequent correction utilizing D50 pushes. Now with stable glucose. She has been downgraded to the medical floor and care transitioned to the hospitalist team. 06/22/2020. No acute events overnight. Saw patient this morning, comfortably resting in bed no apparent distress, pleasant and cooperative with physical examination, denies any fever, chills, nausea, vomiting. Unfortunately patient's right foot MRI is positive for osteomyelitis. Will reconsult surgery for further management. Reason For Visit: SEPSIS,DIABETIC FOOT INFECTION,HYPOGLYCEMIA, Physical Exam Vital Signs: Temp Pulse Resp BP Pulse Ox 98.0 F 58 L 16 136/50 H 100 06/22/20 10:00 06/22/20 07:53 06/22/20 07:53 06/22/20 07:53 06/22/20 07:53 Intake & Output 06/21/20 06/22/20 06/23/20 06:59 06:59 06:59 Intake Total 910 805 150 Balance 910 805 150 Weight 50.8 kg 49 kg General appearance: PRESENT: no acute distress, well-developed, well-nourished Head exam: PRESENT: atraumatic, normocephalic Respiratory exam: PRESENT: clear to auscultation noreen. ABSENT: rales, rhonchi, wheezes Cardiovascular exam: PRESENT: RRR. ABSENT: diastolic murmur, rubs, systolic murmur GI/Abdominal exam: PRESENT: normal bowel sounds, soft. ABSENT: distended, guarding, mass, organolmegaly, rebound, tenderness Extremities exam: PRESENT: full ROM, other - Right foot lateral aspect swelling, erythema, no sinus tract.. ABSENT: calf tenderness, clubbing, pedal edema Neurological exam: PRESENT: alert, awake, oriented to person, oriented to place, oriented to time, oriented to situation, CN II-XII grossly intact. ABSENT: motor sensory deficit Skin exam: PRESENT: dry, intact, warm. ABSENT: cyanosis, rash Results Laboratory Results: 06/21/20 05:20 06/21/20 05:20 06/14/20 06/14/20 06/22/20 07:25 07:25 01:19 Creatine Kinase 104 Troponin I < 0.012 0.026 Impressions: Chest X-Ray 06/14/20 07:29 IMPRESSION: NO ACUTE RADIOGRAPHIC FINDING IN THE CHEST. Head CT 06/14/20 07:31 IMPRESSION: NO ACUTE INTRACRANIAL IMAGING FINDINGS. EVIDENCE OF ACUTE STROKE: NO. Cervical Spine CT 06/14/20 07:32 IMPRESSION: Mild multilevel degenerative change without evidence of acute bony abnormality of the cervical spine. Foot X-Ray 06/14/20 09:07 IMPRESSION: 1. No definite evidence of acute bony abnormality or definitive findings of osteomyelitis. 2. Midfoot collapse with significant degenerative changes suggestive of Charcot joint. Abdomen Ultrasound 06/16/20 00:00 IMPRESSION: Limited study due to overlying bowel gas. No acute findings. The patient is status post cholecystectomy. No ductal dilatation. Lower Extremity MRI 06/22/20 00:00 IMPRESSION: Positive for osteomyelitis. Assessment and Plan - Diagnosis (1) Osteomyelitis Qualifiers: Osteomyelitis type: other chronic Osteomyelitis location: foot Laterality: right Qualified Code(s): M86.671 - Other chronic osteomyelitis, right ankle and foot Is this a current diagnosis for this admission?: Yes Plan: Patient with history of chronic foot wound followed by outpatient wound care clinic unfortunately MRI showed positive for osteomyelitis. Initially was placed on Ancef/clindamycin/vancomycin for empiric antibiotic the rapy. Currently on continue Ancef/clindamycin; Day #7 Continue empiric IV antibiotics. Reconsult surgery for possible surgical intervention. (2) Attempted suicide Is this a current diagnosis for this admission?: Yes Plan: Continue suicide precautions. Mental health services consulted. Have initiated medications per their recommendations; Prozac, clonidine transdermal patch, BuSpar and Haldol. Monitor QTc interval. Supportive care. (3) Depression Qualifiers: Depression Type: major depressive disorder Active/Remission status: currently active Major depression episode severity: severe Psychotic features: without psychotic features Is this a current diagnosis for this admission?: Yes Plan: Mental health services consulted. Medication recommendations reviewed and implemented. 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 Patient is placed on a regular diet. Encourage p.o. intake. Accu-Cheks before meals and at bedtime with Humalog for sliding scale coverage. Hypoglycemia protocol in place. (5) Diabetic foot infection Is this a current diagnosis for this admission?: Yes Plan: Chronic foot wound followed by outpatient wound care clinic. Surgery consulted; appreciate Dr. Tan's recommendations. MRI pending; can be done as an outpatient. Wound culture isolated skin mitzi. Currently on Ancef/clindamycin/vancomycin for empiric antibiotic therapy. Stop vancomycin. Continue Ancef/clindamycin; Day #6/7 Wound care consulted. Can weight-bear once recommendations have been received so long as she is wearing her walking cast/boot. Outpatient follow up with Wound Care clinic. (6) Drug overdose, intentional Qualifiers: Encounter type: subsequent encounter Qualified Code(s): T50.902D - Poisoning by unspecified drugs, medicaments and biological substances, intentional self-harm, subsequent encounter Is this a current diagnosis for this admission?: Yes Plan: Intentional insulin overdose. Management as outlined elsewhere. (7) Hypertension Is this a current diagnosis for this admission?: Yes Plan: Blood pressures remain elevated; overall improved. Discontinue midodrine. Resume home dose losartan/HCTZ. Start cavedilol. Continue Clonidine TD patch. IV Lopressor as needed. Further outpatient management per PCP (8) Hypoglycemia associated with diabetes Is this a current diagnosis for this admission?: Yes Plan: Resolved. Monitor closely for recurrence. Hypoglycemia protocol. (9) Hypokalemia Is this a current diagnosis for this admission?: Yes Plan: Replete. (10) Hypomagnesemia Is this a current diagnosis for this admission?: Yes Plan: Replete. (11) Hypothermia Qualifiers: Encounter type: subsequent encounter Qualified Code(s): T68.XXXD - Hypothermia, subsequent encounter Is this a current diagnosis for this admission?: Yes Plan: Resolved. Secondary to sepsis, hypotension, insulin overdose. (12) Hypothyroidism Is this a current diagnosis for this admission?: Yes Plan: Thyroid panel is acceptable. Continue home dose levothyroxine 75 mcg daily. (13) Sepsis associated hypotension Is this a current diagnosis for this admission?: Yes Plan: Resolved. Patient did require Levophed for blood pressure support. Cultures and antibiotics as above. * Multifactorial. Secondary to right foot infection, profound hypoglycemia (insulin overdose) and overdose of antihypertensive medications. - Time Time Spent with patient: 25-34 minutes Medications reviewed and adjusted accordingly: Yes Anticipated Discharge Disposition: [facility] Facility Anticipated Discharge Timeframe: when bed available
[2020-06-23] MEDS: CARVEDILOL 6.25 MG TABLET PO SCH ×3 (01:11→22:54)
[2020-06-23] MEDS: FAMOTIDINE INJ/PF 20 MG/2 ML SDV IV SCH ×2 (01:11→09:40)
[2020-06-23] MEDS: CLINDAMYCIN 600 MG/D5W RTU 600 MG/50 ML RTUPB IV SCH ×4 (01:11→22:55)
[2020-06-23] MEDS: BUSPIRONE HCL 10 MG TABLET PO SCH ×3 (01:12→22:54)
[2020-06-23] MEDS: ATORVASTATIN CALCIUM 20 MG TABLET PO SCH ×2 (01:12→22:54)
[2020-06-23] MEDS: INSULIN REG, HUMAN 100 UNIT/ML 3 ML VIAL (PYX) SUBCUT SCH ×5 (01:12→22:56)
[2020-06-23] MEDS: CEFAZOLIN 1 GM/D5W RTU 1 GM/50 ML RTUPB IV SCH ×4 (02:57→17:34)
[2020-06-23] MEDS: LEVOTHYROXINE SODIUM 0.075 MG TABLET PO SCH (06:59)
[2020-06-23] MEDS: ENOXAPARIN SODIUM INJ 40 MG/0.4 ML DISP.SYRIN SUBCUT SCH (09:38)
[2020-06-23] MEDS: LOSARTAN POTASSIUM 50 MG TABLET PO SCH (09:39)
[2020-06-23] MEDS: HYDROCHLOROTHIAZIDE 12.5 MG TABLET PO SCH (09:39)
[2020-06-23] MEDS: FOLIC ACID 1 MG TABLET PO SCH (09:39)
[2020-06-23] MEDS: FLUOXETINE HCL 20 MG/5 ML UDCUP PO SCH (09:40)
[2020-06-23] MEDS: PRASUGREL HCL 10 MG TABLET PO SCH (09:40)
[2020-06-23] MEDS: FAMOTIDINE 20 MG TABLET PO SCH ×2 (11:06→22:54)
--- NOTE | 2020-06-23 12:07 | PDOC PROGRESS REPORT ---
Subjective Date:: 06/23/20 Subjective:: No complaints, the patient seems to comprehend her issue and is able to participate to the conversation guarded to her right foot ulcer and osteomyelitis as well as a surgical options Reason For Visit: SEPSIS,DIABETIC FOOT INFECTION,HYPOGLYCEMIA, Physical Exam Vital Signs: Temp Pulse Resp BP Pulse Ox 98.3 F 64 16 117/45 L 100 06/23/20 08:44 06/23/20 07:35 06/23/20 07:35 06/23/20 07:35 06/23/20 07:35 Intake & Output 06/22/20 06/23/20 06/24/20 06:59 06:59 06:59 Intake Total 805 1403 150 Balance 805 1403 150 Weight 49 kg 49.9 kg General appearance: PRESENT: no acute distress Musculoskeletal exam: PRESENT: other - Right foot =2 cm ulcer lateral aspect midfoot no draining, no odor, no erythema, no surrounding edema, no tenderness on palpation Results Laboratory Results: 06/21/20 05:20 06/21/20 05:20 06/14/20 06/14/20 06/22/20 07:25 07:25 01:19 Creatine Kinase 104 Troponin I < 0.012 0.026 06/22/20 16:06 Creatine Kinase Troponin I < 0.012 Impressions: Chest X-Ray 06/14/20 07:29 IMPRESSION: NO ACUTE RADIOGRAPHIC FINDING IN THE CHEST. Head CT 06/14/20 07:31 IMPRESSION: NO ACUTE INTRACRANIAL IMAGING FINDINGS. EVIDENCE OF ACUTE STROKE: NO. Cervical Spine CT 06/14/20 07:32 IMPRESSION: Mild multilevel degenerative change without evidence of acute bony abnormality of the cervical spine. Foot X-Ray 06/14/20 09:07 IMPRESSION: 1. No definite evidence of acute bony abnormality or definitive findings of osteomyelitis. 2. Midfoot collapse with significant degenerative changes suggestive of Charcot joint. Abdomen Ultrasound 06/16/20 00:00 IMPRESSION: Limited study due to overlying bowel gas. No acute findings. The patient is status post cholecystectomy. No ductal dilatation. Lower Extremity MRI 06/22/20 00:00 IMPRESSION: Positive for osteomyelitis. Assessment & Plan - Time Anticipated Discharge Disposition: Psych Hospital/Unit Anticipated Discharge Timeframe: when bed available - Plan Summary Plan Summary: Assessment: Right foot plantar chronic ulcer Recently done MRI of the right foot reveals osteomyelitis of the cuboid bone located just above the ulceration together with osteomyelitis changes of the proximal head of the fourth and fifth metatarsal bones Physical exam of the right foot reveals a 2 cm ulcer over the lateral aspect of the midfoot Plan: Due to the benign physical exam as well as the MRI findings, my recommendation is not to pursue any surgical option at this time either debridement or amputation. Rather, I would wait until the right foot ulcer or surrounding soft tissue worsens prior to making the decision of more aggressive treatment of this condition. I am recommending the patient to ambulate on the right with a soft orthotic shoe weightbearing as tolerated Continue right foot ulcer current local care. I will sign off. Please call me back with questions
--- NOTE | 2020-06-23 17:28 | PDOC PROGRESS REPORT ---
Subjective Date:: 06/23/20 Subjective:: As per admitting physician's note patient is a 74-year-old female with a past medical history significant for Insulin-dependent diabetes mellitus, hypertension, hyperlipidemia, hypothyroidism, and chronic foot wound followed by the surgical clinic who was admitted 06/14/2020 with presumed sepsis with associated hypotension, hypothermia and hypoglycemia but subsequently found to h ave attempted suicide by intentional insulin overdose (Lantus and Humalog) and possibly losartan. The patient initially required Levophed for blood pressure support; this has been successfully weaned off. She also required D10 maintenance fluids to maintain blood glucose with frequent correction utilizing D50 pushes. Now with stable glucose. She has been downgraded to the medical floor and care transitioned to the hospitalist team. 06/22/2020. No acute events overnight. Saw patient this morning, comfortably resting in bed no apparent distress, pleasant and cooperative with physical examination, denies any fever, chills, nausea, vomiting. Unfortunately patient's right foot MRI is positive for osteomyelitis. Will reconsult surgery for further management. 06/23/2020. No acute events overnight. Comfortably resting in bed no apparent distress, p.o. tolerant, having normal bowel movement, was informed of MRI finding, agreeable to reconsulting surgery. Patient also complaining of chronic urinary incontinence which has been worsening since hospitalization. Reason For Visit: SEPSIS,DIABETIC FOOT INFECTION,HYPOGLYCEMIA, Physical Exam Vital Signs: Temp Pulse Resp BP Pulse Ox 98.4 F 61 18 104/47 L 96 06/23/20 15:28 06/23/20 15:28 06/23/20 15:28 06/23/20 15:28 06/23/20 15:28 Intake & Output 06/22/20 06/23/20 06/24/20 06:59 06:59 06:59 Intake Total 805 1403 150 Balance 805 1403 150 Weight 49 kg 49.9 kg General appearance: PRESENT: no acute distress, well-developed, well-nourished Head exam: PRESENT: atraumatic, normocephalic Respiratory exam: PRESENT: clear to auscultation noreen. ABSENT: rales, rhonchi, wheezes Cardiovascular exam: PRESENT: RRR. ABSENT: diastolic murmur, rubs, systolic murmur GI/Abdominal exam: PRESENT: normal bowel sounds, soft. ABSENT: distended, guarding, mass, organolmegaly, rebound, tenderness Extremities exam: PRESENT: full ROM, other - Right foot lateral aspect 2 x 2 centimeter ulcer with dressing in place, no sign of sinus tract, drainage, no erythema or tenderness.. ABSENT: calf tenderness, clubbing, pedal edema Psychiatric exam: PRESENT: depressed, unusual affect Results Laboratory Results: 06/21/20 05:20 06/21/20 05:20 06/14/20 06/14/20 06/22/20 07:25 07:25 01:19 Creatine Kinase 104 Troponin I < 0.012 0.026 06/22/20 16:06 Creatine Kinase Troponin I < 0.012 Impressions: Chest X-Ray 06/14/20 07:29 IMPRESSION: NO ACUTE RADIOGRAPHIC FINDING IN THE CHEST. Head CT 06/14/20 07:31 IMPRESSION: NO ACUTE INTRACRANIAL IMAGING FINDINGS. EVIDENCE OF ACUTE STROKE: NO. Cervical Spine CT 06/14/20 07:32 IMPRESSION: Mild multilevel degenerative change without evidence of acute bony abnormality of the cervical spine. Foot X-Ray 06/14/20 09:07 IMPRESSION: 1. No definite evidence of acute bony abnormality or definitive findings of osteomyelitis. 2. Midfoot collapse with significant degenerative changes suggestive of Charcot joint. Abdomen Ultrasound 06/16/20 00:00 IMPRESSION: Limited study due to overlying bowel gas. No acute findings. The patient is status post cholecystectomy. No ductal dilatation. Lower Extremity MRI 06/22/20 00:00 IMPRESSION: Positive for osteomyelitis. Assessment and Plan - Diagnosis (1) Osteomyelitis Qualifiers: Osteomyelitis type: other chronic Osteomyelitis location: foot Laterality: right Qualified Code(s): M86.671 - Other chronic osteomyelitis, right ankle and foot Is this a current diagnosis for this admission?: Yes Plan: Patient with history of chronic foot wound followed by outpatient wound care clinic unfortunately MRI showed positive for osteomyelitis. Initially was placed on Ancef/clindamycin/vancomycin for empiric antibiotic therapy. Currently on continue Ancef/clindamycin; Day #7 Surgery has been reconsulted, recommended medical management. Surgery has signed off at this point. Continue IV antibiotics. Will consult ID for duration of IV antibiotics. (2) Attempted suicide Is this a current diagnosis for this admission?: Yes Plan: Continue suicide precautions. Mental health services consulted. Have initiated medications per their recommendations; Prozac, clonidine transdermal patch, BuSpar and Haldol. Monitor QTc interval. Supportive care. (3) Depression Qualifiers: Depression Type: major depressive disorder Active/Remission status: currently active Major depression episode severity: severe Psychotic features: without psychotic features Is this a current diagnosis for this admission?: Yes Plan: Mental health services consulted. Medication recommendations reviewed and implemented. 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 Patient is placed on a regular diet. Encourage p.o. intake. Accu-Cheks before meals and at bedtime with Humalog for sliding scale coverage. Hypoglycemia protocol in place. (5) Diabetic foot infection Is this a current diagnosis for this admission?: Yes Plan: Plan as per #1. (6) Drug overdose, intentional Qualifiers: Encounter type: subsequent encounter Qualified Code(s): T50.902D - Poisoning by unspecified drugs, medicaments and biological substances, intentional self-harm, subsequent encounter Is this a current diagnosis for this admission?: Yes Plan: Intentional insulin overdose. Management as outlined elsewhere. (7) Hypertension Is this a current diagnosis for this admission?: Yes Plan: Normotensive. Euvolemic. Current meds. Adjust meds as needed. Outpatient PCP follow-up. (8) Hypoglycemia associated with diabetes Is this a current diagnosis for this admission?: Yes Plan: Resolved. Monitor closely for recurrence. Hypoglycemia protocol. (9) Hypokalemia Is this a current diagnosis for this admission?: Yes Plan: Replete. (10) Hypomagnesemia Is this a current diagnosis for this admission?: Yes Plan: Replete. (11) Hypothermia Qualifiers: Encounter type: subsequent encounter Qualified Code(s): T68.XXXD - Hypothermia, subsequent encounter Is this a current diagnosis for this admission?: Yes Plan: Resolved. Secondary to sepsis, hypotension, insulin overdose. (12) Hypothyroidism Is this a current diagnosis for this admission?: Yes Plan: Thyroid panel is acceptable. Continue home dose levothyroxine 75 mcg daily. (13) Sepsis associated hypotension Is this a current diagnosis for this admission?: Yes Plan: Resolved. - Time Time Spent with patient: 25-34 minutes Medications reviewed and adjusted accordingly: Yes Anticipated Discharge Disposition: Registered Nurse Supervisor Care Facility Anticipated Discharge Timeframe: when bed available
[2020-06-24] MEDS: CEFAZOLIN 1 GM/D5W RTU 1 GM/50 ML RTUPB IV SCH ×4 (01:15→17:18)
[2020-06-24] MEDS: ACETAMINOPHEN 325 MG TABLET PO PRN ×2 (05:27→20:31)
[2020-06-24] MEDS: LEVOTHYROXINE SODIUM 0.075 MG TABLET PO SCH (05:28)
[2020-06-24] MEDS: CLINDAMYCIN 600 MG/D5W RTU 600 MG/50 ML RTUPB IV SCH ×3 (06:26→23:05)
[2020-06-24] MEDS: INSULIN REG, HUMAN 100 UNIT/ML 3 ML VIAL (PYX) SUBCUT SCH ×4 (08:43→23:08)
[2020-06-24] MEDS: FLUOXETINE HCL 20 MG/5 ML UDCUP PO SCH (09:13)
[2020-06-24] MEDS: FOLIC ACID 1 MG TABLET PO SCH (09:14)
[2020-06-24] MEDS: ENOXAPARIN SODIUM INJ 40 MG/0.4 ML DISP.SYRIN SUBCUT SCH (09:14)
[2020-06-24] MEDS: FAMOTIDINE 20 MG TABLET PO SCH ×2 (09:14→23:08)
[2020-06-24] MEDS: PRASUGREL HCL 10 MG TABLET PO SCH (09:14)
[2020-06-24] MEDS: BUSPIRONE HCL 10 MG TABLET PO SCH ×2 (09:14→23:05)
[2020-06-24] MEDS: LOSARTAN POTASSIUM 50 MG TABLET PO SCH (09:14)
[2020-06-24] MEDS: HYDROCHLOROTHIAZIDE 12.5 MG TABLET PO SCH (09:14)
[2020-06-24] MEDS: CARVEDILOL 6.25 MG TABLET PO SCH ×2 (09:14→23:06)
--- NOTE | 2020-06-24 17:07 | PDOC PROGRESS REPORT ---
Subjective Date:: 06/24/20 Subjective:: As per admitting physician's note patient is a 74-year-old female with a past medical history significant for Insulin-dependent diabetes mellitus, hypertension, hyperlipidemia, hypothyroidism, and chronic foot wound followed by the surgical clinic who was admitted 06/14/2020 with presumed sepsis with associated hypotension, hypothermia and hypoglycemia but subsequently found to h ave attempted suicide by intentional insulin overdose (Lantus and Humalog) and possibly losartan. The patient initially required Levophed for blood pressure support; this has been successfully weaned off. She also required D10 maintenance fluids to maintain blood glucose with frequent correction utilizing D50 pushes. Now with stable glucose. She has been downgraded to the medical floor and care transitioned to the hospitalist team. 06/22/2020. No acute events overnight. Saw patient this morning, comfortably resting in bed no apparent distress, pleasant and cooperative with physical examination, denies any fever, chills, nausea, vomiting. Unfortunately patient's right foot MRI is positive for osteomyelitis. Will reconsult surgery for further management. 06/23/2020. No acute events overnight. Comfortably resting in bed no apparent distress, p.o. tolerant, having normal bowel movement, was informed of MRI finding, agreeable to reconsulting surgery. Patient also complaining of chronic urinary incontinence which has been worsening since hospitalization. 06/24/2020. No acute events overnight. Saw patient this morning comfortably spent apparent distress, enjoying her breakfast, denies any fever, chills, nausea, vomiting. Planning to walk today with physical therapy as surgery has given her go ahead to walk with surgical boot. Reason For Visit: SEPSIS,DIABETIC FOOT INFECTION,HYPOGLYCEMIA, Physical Exam Vital Signs: Temp Pulse Resp BP Pulse Ox 98.3 F 60 16 106/45 L 100 06/24/20 15:11 06/24/20 15:11 06/24/20 15:11 06/24/20 15:11 06/24/20 15:11 Intake & Output 06/23/20 06/24/20 06/25/20 06:59 06:59 06:59 Intake Total 1403 400 150 Balance 1403 400 150 Weight 49.9 kg 50.7 kg 50.7 kg General appearance: PRESENT: no acute distress, well-developed, well-nourished Head exam: PRESENT: atraumatic, normocephalic Respiratory exam: PRESENT: clear to auscultation noreen. ABSENT: rales, rhonchi, wheezes Cardiovascular exam: PRESENT: RRR. ABSENT: diastolic murmur, rubs, systolic murmur GI/Abdominal exam: PRESENT: normal bowel sounds, soft. ABSENT: distended, guarding, mass, organolmegaly, rebound, tenderness Extremities exam: PRESENT: full ROM, other - Right foot medial aspect midfoot ulcer looks clean, no erythema or discharge, no tenderness.. ABSENT: calf tenderness, clubbing, pedal edema Results Laboratory Results: 06/21/20 05:20 06/21/20 05:20 06/14/20 06/14/20 06/22/20 07:25 07:25 01:19 Creatine Kinase 104 Troponin I < 0.012 0.026 06/22/20 16:06 Creatine Kinase Troponin I < 0.012 Impressions: Chest X-Ray 06/14/20 07:29 IMPRESSION: NO ACUTE RADIOGRAPHIC FINDING IN THE CHEST. Head CT 06/14/20 07:31 IMPRESSION: NO ACUTE INTRACRANIAL IMAGING FINDINGS. EVIDENCE OF ACUTE STROKE: NO. Cervical Spine CT 06/14/20 07:32 IMPRESSION: Mild multilevel degenerative change without evidence of acute bony abnormality of the cervical spine. Foot X-Ray 06/14/20 09:07 IMPRESSION: 1. No definite evidence of acute bony abnormality or definitive findings of osteomyelitis. 2. Midfoot collapse with significant degenerative changes suggestive of Charcot joint. Abdomen Ultrasound 06/16/20 00:00 IMPRESSION: Limited study due to overlying bowel gas. No acute findings. The patient is status post cholecystectomy. No ductal dilatation. Lower Extremity MRI 06/22/20 00:00 IMPRESSION: Positive for osteomyelitis. Assessment and Plan - Diagnosis (1) Osteomyelitis Qualifiers: Osteomyelitis type: other chronic Osteomyelitis location: foot Laterality: right Qualified Code(s): M86.671 - Other chronic osteomyelitis, right ankle and foot Is this a current diagnosis for this admission?: Yes Plan: Patient with history of chronic foot wound followed by outpatient wound care clinic unfortunately MRI showed positive for osteomyelitis. Initially was placed on Ancef/clindamycin/vancomycin for empiric antibiotic the rapy. Currently on continue Ancef/clindamycin; Day #8 Surgery has been reconsulted, recommended medical management. Surgery has signed off at this point. Continue IV antibiotics. ID consulted. Recommendations pending. (2) Attempted suicide Is this a current diagnosis for this admission?: Yes Plan: Continue suicide precautions. Mental health services consulted. Have initiated medications per their recommendations; Prozac, clonidine transdermal patch, BuSpar and Haldol. Monitor QTc interval. Supportive care. (3) Depression Qualifiers: Depression Type: major depressive disorder Active/Remission status: currently active Major depression episode severity: severe Psychotic features: without psychotic features Is this a current diagnosis for this admission?: Yes Plan: Mental health services consulted. Medication recommendations reviewed and implemented. (4) Diabetes Qualifiers: Diabetes mellitus long-term insulin use: with long-term use Diabetes mellitus complication status: with skin complications Diabetes mellitus complication detail: with foot ulcer Is this a current diagnosis for this admission?: Yes Plan: A1c (05/13/2020) 7.0%. Patient is placed on a regular diet. Encourage p.o. intake. Accu-Cheks before meals and at bedtime with Humalog for sliding scale coverage. Hypoglycemia protocol in place. (5) Diabetic foot infection Is this a current diagnosis for this admission?: Yes Plan: Plan as per #1. (6) Drug overdose, intentional Qualifiers: Encounter type: subsequent encounter Qualified Code(s): T50.902D - Poisoning by unspecified drugs, medicaments and biological substances, intentional self-harm, subsequent encounter Is this a current diagnosis for this admission?: Yes Plan: Intentional insulin overdose. Management as outlined elsewhere. (7) Hypertension Is this a current diagnosis for this admission?: Yes Plan: Normotensive. Euvolemic. Current meds. Adjust meds as needed. Outpatient PCP follow-up. (8) Hypoglycemia associated with diabetes Is this a current diagnosis for this admission?: Yes Plan: Resolved. Monitor closely for recurrence. Hypoglycemia protocol. (9) Hypokalemia Is this a current diagnosis for this admission?: Yes Plan: Replete. (10) Hypomagnesemia Is this a current diagnosis for this admission?: Yes Plan: Replete. (11) Hypothermia Qualifiers: Encounter type: subsequent encounter Qualified Code(s): T68.XXXD - Hypothermia, subsequent encounter Is this a current diagnosis for this admission?: Yes Plan: Resolved. Secondary to sepsis, hypotension, insulin overdose. (12) Hypothyroidism Is this a current diagnosis for this admission?: Yes Plan: Thyroid panel is acceptable. Continue home dose levothyroxine 75 mcg daily. (13) Sepsis associated hypotension Is this a current diagnosis for this admission?: Yes Plan: Resolved. - Time Time Spent with patient: 35 or more minutes Medications reviewed and adjusted accordingly: Yes Anticipated Discharge Disposition: Psych Hospital/Unit Anticipated Discharge Timeframe: when bed available
--- NOTE | 2020-06-24 21:22 | Progress Note ---
Provider Note Provider Note: [facility] teleconsultation. Chart reviewed. Patient not examined. 24-year-old female with a history of insulin-dependent diabetes and a chronic right foot wound who was admitted 06/14 with sepsis with associated hypotension, hypothermia, and hypoglycemia and unfortunately was subsequently found to have an attempted suicide by intentional insulin overdose. She did initially require Levophed but this has been weaned off. She has been on cefazolin since 06/17 and clindamycin since admission 06/14. WBC peaked at 19.4 and is now down trended to 9.2. Blood cultures have been no growth to date. A superficial swab of a unimpressive chronic ulcer on her right foot demonstrated growth of normal skin mitzi. MRI of the right foot with osteomyelitis in the cuboid and base of the fourth and fifth metatarsals with adjacent joint effusion, however, x-ray describes these changes as Charcot joint. Surgery has indicated that the exam is fairly benign and are not inclined to perform any debridement at this time. 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 MRI findings may actually be related to Charcot arthropathy and are not specific for osteomyelitis. X-ray without osteomyelitis findings. Patient's presentation can be fully explained by her insulin overdose with reactive leukocytosis. Given the description of the wound would not expect this to cause her presentation. Antibiotic should be discontinued with outpatient follow-up with wound care and or surgery.
--- NOTE | 2020-06-24 21:34 | CDI QUERY ---
CDI Query CDI Review: We are seeking further clarification of documentation to reflect the severity of illness of your patient. Per Critical Care Notes: Reason for ICU Addmission:: HYpotension and needing levophed Per Progress Notes: Sepsis associated hypotension Resolved. Patient did require Levophed for blood pressure support. Cultures and antibiotics as above. Multifactorial. Secondary to right foot infection, profound hypoglycemia (insulin overdose) and overdose of antihypertensive medications. Based on your medical judgement, can you further clarify in the Progress Notes if the associated hypotension was: . Shock (please specify type) . Hypotension without shock (please specify cause) . Another condition (please specify) . None of the above / Not applicable Thank you for your consideration. VANESSA Sanchez RN Clinical [facility] Physician Advisor [email or web address]
--- NOTE | 2020-06-24 21:42 | CDI QUERY ---
CDI Query CDI Review: We are seeking further clarification of documentation to reflect the severity of illness of your patient. Per [facility] Provider Note: Assessment/Recommendations: Chronic right foot wound in the setting of diabetes and Charcot arthropathy. MRI findings may actually be related to Charcot arthropathy and are not specific for osteomyelitis. X-ray without osteomyelitis findings. Patient's presentation can be fully explained by her insulin overdose with reactive leukocytosis. Given the description of the wound would not expect this to cause her presentation. Antibiotic should be discontinued with outpatient follow-up with wound care and or surgery. Based on your medical judgement, can you further clarify in the Progress Notes Sepsis Sepsis Ruled out Unable to determine Other Thank you for your consideration. VANESSA Sanchez RN Clinical Unit Tender Physician Advisor [email or web address]
[2020-06-24] MEDS: ATORVASTATIN CALCIUM 20 MG TABLET PO SCH (23:08)
[2020-06-25] MEDS: CEFAZOLIN 1 GM/D5W RTU 1 GM/50 ML RTUPB IV SCH ×2 (01:57→11:21)
[2020-06-25] MEDS: CLINDAMYCIN 600 MG/D5W RTU 600 MG/50 ML RTUPB IV SCH (05:50)
[2020-06-25] MEDS: LEVOTHYROXINE SODIUM 0.075 MG TABLET PO SCH (05:50)
[2020-06-25] MEDS: INSULIN REG, HUMAN 100 UNIT/ML 3 ML VIAL (PYX) SUBCUT SCH ×4 (08:27→22:02)
[2020-06-25 09:23] LABS: ABSOLUTE BASOPHILS # (AUTO) 0.1 10^3/uL (0.0-0.2); ABSOLUTE EOSINOPHILS # (AUTO) 0.2 10^3/uL (0.0-0.6); ABSOLUTE LYMPHOCYTES (AUTO) 1.8 10^3/uL (0.5-4.7); ABSOLUTE MONOCYTES (AUTO) 1.1 10^3/uL (0.1-1.4); ABSOLUTE NEUT (AUTO) 10.8 10^3/uL (1.7-8.2); BASOPHILS % (AUTO) 0.5 % (0-2); EOSINOPHILS % (AUTO) 1.6 % (0-6); HEMATOCRIT 34.5 % (36.0-47.0); HEMOGLOBIN 11.3 g/dL (12.0-15.5); LYMPHOCYTES % (AUTO) 12.8 % (13-45); MEAN CORPUSCULAR HEMOGLOBIN 28.8 pg (27.0-33.4); MEAN CORPUSCULAR HGB CONC 32.6 g/dL (32.0-36.0); MEAN CORPUSCULAR VOLUME 89 fl (80-97); MONOCYTES % (AUTO) 7.6 % (3-13); PLATELET COUNT 273 10^3/uL (150-450); RED BLOOD COUNT 3.91 10^6/uL (3.72-5.28); RED CELL DISTRIBUTION WIDTH 13.7 % (11.5-14.0); SEGMENTED NEUTROPHILS % (AUTO) 77.5 % (42-78); TOTAL CELLS COUNTED % (AUTO) 100 %; WHITE BLOOD COUNT 13.9 10^3/uL (4.0-10.5)
[2020-06-25 09:45] LABS: ANION GAP 13 (5-19); BLOOD UREA NITROGEN 26 mg/dL (7-20); CALCIUM 9.4 mg/dL (8.4-10.2); CARBON DIOXIDE 25 mmol/L (22-30); CHLORIDE 99 mmol/L (98-107); GLUCOSE 175 mg/dL (75-110); POTASSIUM 4.7 mmol/L (3.6-5.0)
[2020-06-25] MEDS: CARVEDILOL 6.25 MG TABLET PO SCH ×2 (09:52→22:02)
[2020-06-25] MEDS: BUSPIRONE HCL 10 MG TABLET PO SCH ×2 (09:52→22:01)
[2020-06-25] MEDS: FAMOTIDINE 20 MG TABLET PO SCH ×2 (09:53→22:01)
[2020-06-25] MEDS: FOLIC ACID 1 MG TABLET PO SCH (09:53)
[2020-06-25] MEDS: FLUOXETINE HCL 20 MG/5 ML UDCUP PO SCH (09:53)
[2020-06-25] MEDS: PRASUGREL HCL 10 MG TABLET PO SCH (09:53)
[2020-06-25] MEDS: LOSARTAN POTASSIUM 50 MG TABLET PO SCH (09:58)
[2020-06-25] MEDS: HYDROCHLOROTHIAZIDE 12.5 MG TABLET PO SCH (09:58)
[2020-06-25] MEDS: ENOXAPARIN SODIUM INJ 40 MG/0.4 ML DISP.SYRIN SUBCUT SCH (09:59)
[2020-06-25] MEDS: CLONIDINE 0.2 MG/24 HR PATCH.TDWK TD SCH (10:06)
--- NOTE | 2020-06-25 11:50 | PDOC PROGRESS REPORT ---
Subjective Date:: 06/25/20 Subjective:: As per admitting physician's note patient is a 74-year-old female with a past medical history significant for Insulin-dependent diabetes mellitus, hypertension, hyperlipidemia, hypothyroidism, and chronic foot wound followed by the surgical clinic who was admitted 06/14/2020 with presumed sepsis with associated hypotension, hypothermia and hypoglycemia but subsequently found to h ave attempted suicide by intentional insulin overdose (Lantus and Humalog) and possibly losartan. The patient initially required Levophed for blood pressure support; this has been successfully weaned off. She also required D10 maintenance fluids to maintain blood glucose with frequent correction utilizing D50 pushes. Now with stable glucose. She has been downgraded to the medical floor and care transitioned to the hospitalist team. 06/22/2020. No acute events overnight. Saw patient this morning, comfortably resting in bed no apparent distress, pleasant and cooperative with physical examination, denies any fever, chills, nausea, vomiting. Unfortunately patient's right foot MRI is positive for osteomyelitis. Will reconsult surgery for further management. 06/23/2020. No acute events overnight. Comfortably resting in bed no apparent distress, p.o. tolerant, having normal bowel movement, was informed of MRI finding, agreeable to reconsulting surgery. Patient also complaining of chronic urinary incontinence which has been worsening since hospitalization. 06/24/2020. No acute events overnight. Saw patient this morning comfortably spent apparent distress, enjoying her breakfast, denies any fever, chills, nausea, vomiting. Planning to walk today with physical therapy as surgery has given her go ahead to walk with surgical boot. 06/25/2020. No acute events overnight. Patient comfortably sitting up in distress, enjoying her breakfast, denies any fever, chills, nausea, vomiting. P.o. tolerant. Still complaining of chronic urinary incontinence. ID has been consulted about right foot osteomyelitis, according to their note they do not think this is osteoarthritis or other chronic arthropathy due to diabetic complication, ID did not recommend further antibiotics and recommend continue wound care. At this point patient is medically optimized to be transferred to npatient psych if needed. Reason For Visit: SEPSIS,DIABETIC FOOT INFECTION,HYPOGLYCEMIA, Physical Exam Vital Signs: Temp Pulse Resp BP Pulse Ox 98.2 F 61 16 124/48 L 96 06/25/20 10:00 06/25/20 07:58 06/25/20 07:58 06/25/20 07:58 06/25/20 07:58 Intake & Output 06/24/20 06/25/20 06/26/20 06:59 06:59 06:59 Intake Total 400 300 50 Balance 400 300 50 Weight 50.7 kg 51.7 kg General appearance: PRESENT: no acute distress, well-developed, well-nourished Head exam: PRESENT: atraumatic, normocephalic Respiratory exam: PRESENT: clear to auscultation noreen. ABSENT: rales, rhonchi, wheezes Cardiovascular exam: PRESENT: RRR. ABSENT: diastolic murmur, rubs, systolic murmur GI/Abdominal exam: PRESENT: normal bowel sounds, soft. ABSENT: distended, guarding, mass, organolmegaly, rebound, tenderness Extremities exam: PRESENT: full ROM, other - Right foot medial aspect wound looks clean, no discharge no erythema or pain.. ABSENT: calf tenderness, clubbing, pedal edema Neurological exam: PRESENT: alert, awake, oriented to person, oriented to place, oriented to time, oriented to situation, CN II-XII grossly intact. ABSENT: motor sensory deficit Results Laboratory Results: 06/25/20 08:39 06/25/20 08:39 06/25/20 06/25/20 08:39 08:39 WBC 13.9 H RBC 3.91 Hgb 11.3 L Hct 34.5 L MCV 89 MCH 28.8 MCHC 32.6 RDW 13.7 Plt Count 273 Seg Neutrophils % 77.5 Sodium 136.5 L Potassium 4.7 Chloride 99 Carbon Dioxide 25 Anion Gap 13 BUN 26 H Creatinine 0.83 Est GFR ( Amer) > 60 Glucose 175 H Calcium 9.4 Magnesium 1.5 L 06/14/20 06/14/20 06/22/20 07:25 07:25 01:19 Creatine Kinase 104 Troponin I < 0.012 0.026 06/22/20 16:06 Creatine Kinase Troponin I < 0.012 Impressions: Chest X-Ray 06/14/20 07:29 IMPRESSION: NO ACUTE RADIOGRAPHIC FINDING IN THE CHEST. Head CT 06/14/20 07:31 IMPRESSION: NO ACUTE INTRACRANIAL IMAGING FINDINGS. EVIDENCE OF ACUTE STROKE: NO. Cervical Spine CT 06/14/20 07:32 IMPRESSION: Mild multilevel degenerative change without evidence of acute bony abnormality of the cervical spine. Foot X-Ray 06/14/20 09:07 IMPRESSION: 1. No definite evidence of acute bony abnormality or definitive findings of osteomyelitis. 2. Midfoot collapse with significant degenerative changes suggestive of Charcot joint. Abdomen Ultrasound 06/16/20 00:00 IMPRESSION: Limited study due to overlying bowel gas. No acute findings. The patient is status post cholecystectomy. No ductal dilatation. Lower Extremity MRI 06/22/20 00:00 IMPRESSION: Positive for osteomyelitis. Assessment and Plan - Diagnosis (1) Osteomyelitis Qualifiers: Osteomyelitis type: other chronic Osteomyelitis location: foot Laterality: right Qualified Code(s): M86.671 - Other chronic osteomyelitis, right ankle and foot Is this a current diagnosis for this admission?: Yes Plan: Patient with history of chronic foot wound followed by outpatient wound care clinic unfortunately MRI showed positive for osteomyelitis. As per ID note she does not seem to have osteomyelitis and should be taken off of IV antibiotics. Please refer to ID note. Initially was placed on Ancef/clindamycin/vancomycin for empiric antibiotic therapy. See if 8 days of IV Ancef and clindamycin. Surgery has been reconsulted, recommended medical management. Surgery has signed off at this point. Infectious disease consulted. Recommendation continue wound care. Stop antibiotics. (2) Attempted suicide Is this a current diagnosis for this admission?: Yes Plan: Continue suicide precautions. Mental health services consulted. Have initiated medications per their recommendations; Prozac, clonidine transdermal patch, BuSpar and Haldol. Monitor QTc interval. Supportive care. (3) Depression Qualifiers: Depression Type: major depressive disorder Active/Remission status: currently active Major depression episode severity: severe Psychotic features: without psychotic features Is this a current diagnosis for this admission?: Yes Plan: Mental health services consulted. Medication recommendations reviewed and implemented. (4) Diabetes Qualifiers: Diabetes mellitus salvage determiner insulin use: with salvage determiner use Diabetes mellitus complication status: with skin complications Diabetes mellitus complication detail: with foot ulcer Is this a current diagnosis for this admission?: Yes Plan: A1c (05/13/2020) 7.0%. Hemoglobin A1c 7.0. Well-controlled. Renal function is WNL. Patient could be managed with oral hypoglycemic given attempted suicide with Lantus. Patient has been managed with sliding scale insulin while inpatient. Has not received any Lantus since being hospitalized. Patient is blood glucose level has been well managed with sliding scale insulin. Patient is started on sitagliptin 50 mg p.o. daily. Glipizide 5 mg p.o. twice daily. Patient is stating that she was on oral hypoglycemics however she does not know why she was stopped. She does not want to be started on Metformin as she did not tolerate it very well. Continue sitagliptin 50 mg p.o. twice daily. Glipizide 5 mg p.o. twice daily. Diabetic diet, Accu-Chek, hypoglycemia protocol. Sliding scale insulin. (5) Diabetic foot infection Is this a current diagnosis for this admission?: Yes Plan: Plan as per #1. (6) Drug overdose, intentional Qualifiers: Encounter type: subsequent encounter Qualified Code(s): T50.902D - Poisoning by unspecified drugs, medicaments and biological substances, intentional self-harm, subsequent encounter Is this a current diagnosis for this admission?: Yes Plan: Intentional insulin overdose. Management as outlined elsewhere. (7) Hypertension Is this a current diagnosis for this admission?: Yes Plan: Normotensive. Euvolemic. Current meds. Adjust meds as needed. Outpatient PCP follow-up. (8) Hypoglycemia associated with diabetes Is this a current diagnosis for this admission?: Yes Plan: Resolved. Monitor closely for recurrence. Hypoglycemia protocol. (9) Hypokalemia Is this a current diagnosis for this admission?: Yes Plan: Replete. (10) Hypomagnesemia Is this a current diagnosis for this admission?: Yes Plan: Replete. (11) Hypothermia Qualifiers: Encounter type: subsequent encounter Qualified Code(s): T68.XXXD - Hypothermia, subsequent encounter Is this a current diagnosis for this admission?: Yes Plan: Resolved. Secondary to sepsis, hypotension, insulin overdose. (12) Hypothyroidism Is this a current diagnosis for this admission?: Yes Plan: Thyroid panel is acceptable. Continue home dose levothyroxine 75 mcg daily. (13) Sepsis associated hypotension Is this a current diagnosis for this admission?: Yes Plan: Resolved. - Time Time Spent with patient: 25-34 minutes Medications reviewed and adjusted accordingly: Yes Anticipated Discharge Disposition: Psych Hospital/Unit Anticipated Discharge Timeframe: when bed available
[2020-06-25] MEDS ORDERED: MAGNESIUM OXIDE 400 MG TABLET PO ONE (11:51)
[2020-06-25] MEDS ORDERED: SITAGLIPTIN PHOSPHATE 50 MG TABLET PO ONE (12:15)
[2020-06-25] MEDS ORDERED: SITAGLIPTIN PHOSPHATE 50 MG TABLET PO SCH ×2 (13:00→16:00)
[2020-06-25] MEDS ORDERED: METFORMIN HCL 500 MG TABLET PO SCH (16:00)
[2020-06-25] MEDS: SITAGLIPTIN PHOSPHATE 50 MG TABLET PO SCH (16:07)
--- NOTE | 2020-06-25 18:25 | PDOC CONSULTATION ---
Consultation-Blank Consultation: Behavioral health team has been looking for inpatient psychiatric treatment placement; unfortunately, this had to be stopped. Patient has been receiving IV medications with the last dose today 06/25/2020 at 0358 and a different IV medication today at 1122. Psychiatric hospitals are unable to take patient's wi th IV medications and have reported to the Behavioral health team they will not be able to review the patient for placement until 24 hour after IV medications.
[2020-06-25] MEDS: ATORVASTATIN CALCIUM 20 MG TABLET PO SCH (22:01)
[2020-06-25] MEDS: NYSTATIN CREAM 15 GM TP SCH (22:07)
[2020-06-26 05:46] LABS: ABSOLUTE BASOPHILS # (AUTO) 0.1 10^3/uL (0.0-0.2); ABSOLUTE EOSINOPHILS # (AUTO) 0.2 10^3/uL (0.0-0.6); ABSOLUTE LYMPHOCYTES (AUTO) 1.4 10^3/uL (0.5-4.7); ABSOLUTE MONOCYTES (AUTO) 1.1 10^3/uL (0.1-1.4); ABSOLUTE NEUT (AUTO) 8.4 10^3/uL (1.7-8.2); BASOPHILS % (AUTO) 0.7 % (0-2); EOSINOPHILS % (AUTO) 1.5 % (0-6); HEMOGLOBIN 9.6 g/dL (12.0-15.5); LYMPHOCYTES % (AUTO) 12.7 % (13-45); MEAN CORPUSCULAR HEMOGLOBIN 28.9 pg (27.0-33.4); MEAN CORPUSCULAR HGB CONC 33.3 g/dL (32.0-36.0); MEAN CORPUSCULAR VOLUME 87 fl (80-97); MONOCYTES % (AUTO) 9.4 % (3-13); PLATELET COUNT 295 10^3/uL (150-450); RED BLOOD COUNT 3.34 10^6/uL (3.72-5.28); RED CELL DISTRIBUTION WIDTH 13.2 % (11.5-14.0); SEGMENTED NEUTROPHILS % (AUTO) 75.7 % (42-78); TOTAL CELLS COUNTED % (AUTO) 100 %; WHITE BLOOD COUNT 11.2 10^3/uL (4.0-10.5)
[2020-06-26] MEDS: LEVOTHYROXINE SODIUM 0.075 MG TABLET PO SCH (07:35)
[2020-06-26] MEDS: FOLIC ACID 1 MG TABLET PO SCH (09:05)
[2020-06-26] MEDS: LOSARTAN POTASSIUM 50 MG TABLET PO SCH (09:05)
[2020-06-26] MEDS: FAMOTIDINE 20 MG TABLET PO SCH ×2 (09:05→21:34)
[2020-06-26] MEDS: SITAGLIPTIN PHOSPHATE 50 MG TABLET PO SCH ×2 (09:05→17:07)
[2020-06-26] MEDS: CARVEDILOL 6.25 MG TABLET PO SCH ×2 (09:05→21:33)
[2020-06-26] MEDS: INSULIN REG, HUMAN 100 UNIT/ML 3 ML VIAL (PYX) SUBCUT SCH ×3 (09:05→17:07)
[2020-06-26] MEDS: BUSPIRONE HCL 10 MG TABLET PO SCH ×2 (09:05→21:33)
[2020-06-26] MEDS: FLUOXETINE HCL 20 MG/5 ML UDCUP PO SCH (09:07)
[2020-06-26] MEDS: ENOXAPARIN SODIUM INJ 40 MG/0.4 ML DISP.SYRIN SUBCUT SCH (09:07)
[2020-06-26] MEDS: PRASUGREL HCL 10 MG TABLET PO SCH (09:07)
[2020-06-26] MEDS: NYSTATIN CREAM 15 GM TP SCH ×2 (09:08→17:07)
--- NOTE | 2020-06-26 13:27 | PDOC PROGRESS REPORT ---
Subjective Date:: 06/26/20 Subjective:: As per admitting physician's note patient is a 74-year-old female with a past medical history significant for Insulin-dependent diabetes mellitus, hypertension, hyperlipidemia, hypothyroidism, and chronic foot wound followed by the surgical clinic who was admitted 06/14/2020 with presumed sepsis with associated hypotension, hypothermia and hypoglycemia but subsequently found to h ave attempted suicide by intentional insulin overdose (Lantus and Humalog) and possibly losartan. The patient initially required Levophed for blood pressure support; this has been successfully weaned off. She also required D10 maintenance fluids to maintain blood glucose with frequent correction utilizing D50 pushes. Now with stable glucose. She has been downgraded to the medical floor and care transitioned to the hospitalist team. 06/22/2020. No acute events overnight. Saw patient this morning, comfortably resting in bed no apparent distress, pleasant and cooperative with physical examination, denies any fever, chills, nausea, vomiting. Unfortunately patient's right foot MRI is positive for osteomyelitis. Will reconsult surgery for further management. 06/23/2020. No acute events overnight. Comfortably resting in bed no apparent distress, p.o. tolerant, having normal bowel movement, was informed of MRI finding, agreeable to reconsulting surgery. Patient also complaining of chronic urinary incontinence which has been worsening since hospitalization. 06/24/2020. No acute events overnight. Saw patient this morning comfortably spent apparent distress, enjoying her breakfast, denies any fever, chills, nausea, vomiting. Planning to walk today with physical therapy as surgery has given her go ahead to walk with surgical boot. 06/25/2020. No acute events overnight. Patient comfortably sitting up in distress, enjoying her breakfast, denies any fever, chills, nausea, vomiting. P.o. tolerant. Still complaining of chronic urinary incontinence. ID has been consulted about right foot osteomyelitis, according to their note they do not think this is osteoarthritis or other chronic arthropathy due to diabetic complication, ID did not recommend further antibiotics and recommend continue wound care. At this point patient is medically optimized to be transferred to npatient psych if needed. 06/26/2020. No acute events overnight. Patient looks down today, resting in bed, inquiring about when she can be discharged, otherwise she is stating she had a good night sleep, she has healthy appetite, denies any fever, chills, nausea, vomiting. Patient has not been on any IV medications since 06/25/2020 and medically optimized to be transferred to inpatient psych. Reason For Visit: SEPSIS,DIABETIC FOOT INFECTION,HYPOGLYCEMIA, Physical Exam Vital Signs: Temp Pulse Resp BP Pulse Ox 98.4 F 65 18 115/69 99 06/26/20 11:27 06/26/20 11:27 06/26/20 11:27 06/26/20 11:27 06/26/20 11:27 Intake & Output 06/25/20 06/26/20 06/27/20 06:59 06:59 06:59 Intake Total 300 590 Balance 300 590 Weight 51.7 kg 50.7 kg General appearance: PRESENT: no acute distress, well-developed, well-nourished Head exam: PRESENT: atraumatic, normocephalic Respiratory exam: PRESENT: clear to auscultation noreen. ABSENT: rales, rhonchi, wheezes Cardiovascular exam: PRESENT: RRR. ABSENT: diastolic murmur, rubs, systolic murmur Neurological exam: PRESENT: alert, awake, oriented to person, oriented to place, oriented to time, oriented to situation, CN II-XII grossly intact. ABSENT: motor sensory deficit Psychiatric exam: PRESENT: depressed Results Laboratory Results: 06/26/20 05:25 06/25/20 08:39 06/25/20 06/26/20 18:28 05:25 WBC 11.2 H RBC 3.34 L Hgb 9.6 L Hct 29.0 L MCV 87 MCH 28.9 MCHC 33.3 RDW 13.2 Plt Count 295 Seg Neutrophils % 75.7 Magnesium 1.6 06/14/20 06/14/20 06/22/20 07:25 07:25 01:19 Creatine Kinase 104 Troponin I < 0.012 0.026 06/22/20 16:06 Creatine Kinase Troponin I < 0.012 Impressions: Chest X-Ray 06/14/20 07:29 IMPRESSION: NO ACUTE RADIOGRAPHIC FINDING IN THE CHEST. Head CT 06/14/20 07:31 IMPRESSION: NO ACUTE INTRACRANIAL IMAGING FINDINGS. EVIDENCE OF ACUTE STROKE: NO. Cervical Spine CT 06/14/20 07:32 IMPRESSION: Mild multilevel degenerative change without evidence of acute bony abnormality of the cervical spine. Foot X-Ray 06/14/20 09:07 IMPRESSION: 1. No definite evidence of acute bony abnormality or definitive findings of osteomyelitis. 2. Midfoot collapse with significant degenerative changes suggestive of Charcot joint. Abdomen Ultrasound 06/16/20 00:00 IMPRESSION: Limited study due to overlying bowel gas. No acute findings. The patient is status post cholecystectomy. No ductal dilatation. Lower Extremity MRI 06/22/20 00:00 IMPRESSION: Positive for osteomyelitis. Assessment and Plan - Diagnosis (1) Attempted suicide Is this a current diagnosis for this admission?: Yes Plan: Continue suicide precautions. Mental health services consulted. Have initiated medications per their recommendations; Prozac, clonidine transdermal patch, BuSpar and Haldol. Monitor QTc interval. Supportive care. (2) Depression Qualifiers: Depression Type: major depressive disorder Active/Remission status: currently active Major depression episode severity: severe Psychotic features: without psychotic features Is this a current diagnosis for this admission?: Yes Plan: Mental health services consulted. Medication recommendations reviewed and implemented. (3) Diabetes Qualifiers: Diabetes mellitus salvage determiner insulin use: with salvage determiner use Diabetes mellitus complication status: with skin complications Diabetes mellitus complication detail: with foot ulcer Is this a current diagnosis for this admission?: Yes Plan: A1c (05/13/2020) 7.0%. Hemoglobin A1c 7.0. Well-controlled. Renal function is WNL. Patient could be managed with oral hypoglycemic given attempted suicide with Lantus. Patient has been managed with sliding scale insulin while inpatient. Has not received any Lantus since being hospitalized. Patient is blood glucose level has been well managed with sliding scale insulin. Patient is started on sitagliptin 50 mg p.o. daily. Glipizide 5 mg p.o. twice daily. Patient is stating that she was on oral hypoglycemics however she does not know why she was stopped. She does not want to be started on Metformin as she did not tolerate it very well. Continue sitagliptin 50 mg p.o. twice daily. Glipizide 5 mg p.o. twice daily. Diabetic diet, Accu-Chek, hypoglycemia protocol. Sliding scale insulin. (4) Diabetic foot infection Is this a current diagnosis for this admission?: Yes Plan: Plan as per above. (5) Drug overdose, intentional Qualifiers: Encounter type: subsequent encounter Qualified Code(s): T50.902D - Poisoning by unspecified drugs, medicaments and biological substances, intentional self-harm, subsequent encounter Is this a current diagnosis for this admission?: Yes Plan: Intentional insulin overdose. Management as outlined elsewhere. (6) Hypertension Is this a current diagnosis for this admission?: Yes Plan: Normotensive. Euvolemic. Current meds. Adjust meds as needed. Outpatient PCP follow-up. (7) Hypoglycemia associated with diabetes Is this a current diagnosis for this admission?: Yes Plan: Resolved. Monitor closely for recurrence. Hypoglycemia protocol. (8) Hypokalemia Is this a current diagnosis for this admission?: Yes Plan: Replete. (9) Hypomagnesemia Is this a current diagnosis for this admission?: Yes Plan: Replete. (10) Hypothermia Qualifiers: Encounter type: subsequent encounter Qualified Code(s): T68.XXXD - Hypothermia, subsequent encounter Is this a current diagnosis for this admission?: Yes Plan: Resolved. Secondary to sepsis, hypotension, insulin overdose. (11) Hypothyroidism Is this a current diagnosis for this admission?: Yes Plan: Thyroid panel is acceptable. Continue home dose levothyroxine 75 mcg daily. (12) Sepsis associated hypotension Is this a current diagnosis for this admission?: Yes Plan: Resolved. (13) Osteomyelitis Qualifiers: Osteomyelitis type: other chronic Osteomyelitis location: foot Laterality: right Qualified Code(s): M86.671 - Other chronic osteomyelitis, right ankle and foot Is this a current diagnosis for this admission?: Yes Plan: Patient with history of chronic foot wound followed by outpatient wound care clinic unfortunately MRI showed positive for osteomyelitis. As per ID note she does not seem to have osteomyelitis and should be taken off of IV antibiotics. Please refer to ID note. Initially was placed on Ancef/clindamycin/vancomycin for empiric antibiotic therapy. Received 8 days of IV Ancef and clindamycin. Surgery has been reconsulted, recommended medical management. Surgery has signed off at this point. Infectious disease consulted. Recommendation continue wound care. Stop antibiotics. - Time Time Spent with patient: 25-34 minutes Medications reviewed and adjusted accordingly: Yes Anticipated Discharge Disposition: Psych Hospital/Unit Anticipated Discharge Timeframe: when bed available
[2020-06-26] MEDS ORDERED: GLIPIZIDE 5 MG TABLET PO SCH (16:00)
--- NOTE | 2020-06-26 16:17 | PSYCHOLOGICAL NOTE ---
Psych Note - Psych Note Date seen by psych provider: 06/26/20 Time seen by psych provider: 14:45 Psych Note: [id number] Patient was re-evaluated today. She presented with depressed mood and congruent affect. Patient reported feeling "a little down" and expressed that she does not know if she feels like moving on. Patient shows fair insight in that she was asking for medication changes for mood stability. Patient remains on IVC paperwork. She continues to be a danger to self. Patient's referral was sent out to 4 facilities on 06/24/2020, but was put on hold due to IV medications. As of yesterday, patient has stopped all IV medications. Nursing staff was made aware patient needed to be off all IV medications for 24 hours prior to resending out referral for inpatient hospitalization. Today, 06/26/2020, after 24 hour chris, referral packet was resent to [facility] for inpatient hospitalization. [facility] called at [phone] inquiring about patient. Patient's referral was successfully re-faxed at [phone]. Behavioral health will update POA today.
--- NOTE | 2020-06-26 20:41 | PSYCHOLOGICAL NOTE ---
Psych Note - Psych Note Date seen by psych provider: 06/18/20 Time seen by psych provider: 19:00 Psych Note: Chart review at 1900. Hospitalist inquired about patient having Capacity. Presenting Problem: FULL Involuntary Commitment for suicide attempt via overdosing on Diabetic medication, leaving a suicide note, and having pamphlet information. Medication recommendation have been provided already. Clinical Presentation: Suicidal Ideation via Overdose of Diabetic medication Suicidal ideation with note and pamphlet from home indicating desire for cremation Uncomplicated Bereavement: 7 years ago, mid May was his , mid June is anniversary of his Impression/Plan: Recommendation to maintain FULL Involuntary Commitment. Unable to assess capacity until after patient has had mental health treatment. She was downgraded to a medical floor from Intensive Care Unit and care transferred to hospitalist team. She is not medically cleared yet. QT is 440 and QTc is 465 so unable to give any kind of antipsychotic and if must should be lowest dose possible. Consulted with Dr. Izquierdo regarding the management and care patient. Hospital aware of recommendations.
[2020-06-26] MEDS: ATORVASTATIN CALCIUM 20 MG TABLET PO SCH (21:34)
--- NOTE | 2020-06-26 23:12 | PSYCHOLOGICAL NOTE ---
Psych Note - Psych Note Date seen by psych provider: 06/19/20 Time seen by psych provider: 18:50 Psych Note: Evaluation with patient from [id number]. Presenting Problem: FULL Involuntary Commitment for suicide attempt via overdosing on Diabetic medication, leaving a suicide note, and having pamphlet information. Clinical Presentation: Suicidal Ideation via Overdose of Diabetic medication Suicidal ideation with note and pamphlet from home indicating desire for cremation Uncomplicated Bereavement: 7 years ago, may was his birthday, june is anniversary of his Medication recommendation made by the psychiatric medication provider Dr. Viky ALVARADO., includes: Discontinue Lexapro 10MF daily for depression Add the Prozac 10MG daily for depression Impression/Plan: Recommendation to maintain FULL Involuntary Commitment. Patient reported she felt better. Mood was depressed with flat affect however. She admitted to trying " She again stated "I do feel a lot better." She said she was talking more to different people. She knew her friend/roommate/POA's name (Elaina) and son's name (Riley). She denied previous mental health history. She expressed she was worried about the cost of this hospital visit and was encouraged not to think about it as there are payment plans. Spoke to Hospitalist who reported patient was not medically cleared, likely Sunday which is when the IV antibiotics will be completed, and then she has a foot MRI which will not likely affect medical clearance. She also noted patient had been alert and oriented x4 yesterday, talking, answering questions, and gave permission to keep friend/roommate/POA informed so no concern for capacity anymore. Consulted with Dr. Izquierdo regarding the management and care of patient. Hospitalist in agreement with recommendations.
--- NOTE | 2020-06-26 23:30 | PDOC CONSULTATION ---
Consultation-Blank Consultation: Behavioral Health Consult Brief interaction with patient at [phone]. Presenting Problem: FULL Involuntary Commitment for suicide attempt via overdosing on Diabetic medication, leaving a suicide note, and having pamphlet information. Clinical Presentation: Suicidal Ideation via Overdose of Diabetic medication Suicidal ideation with note and pamphlet from home indicating desire for cremation Uncomplicated Bereavement: 7 years ago, mid May was his birthday, mid June is anniversary of his Impression/Plan: Recommendation to maintain FULL Involuntary Commitment. Said hello to patient after seeing another patient near her room. She had a small plastic grocery bag with sugar free life savers and other candy in it. She offered this clinician one which was declined but thanked her. She confirmed her friend/roommate/POA brought the candy to her. She presented with more euthymic affect than previous interactions with this clinician. Consulted with Dr. Izquierdo regarding the management and care of patient. Hospitalist in agreement with recommendations.
--- NOTE | 2020-06-26 23:48 | PDOC CONSULTATION ---
Consultation-Blank Consultation: Spoke to patient's friend/roommate/POA Elaina ([phone]) from [phone]. Informed her of plan of care. Spoke to Hospitalist at 1305 who noted once obtain acceptance let him know and they can do Rapid COVID test. Started placement efforts. Presenting Problem: FULL Involuntary Commitment for suicide attempt via overdosing on Diabetic medication, leaving a suicide note, and having pamphlet information. Clinical Presentation: Suicidal Ideation via Overdose of Diabetic medication Suicidal ideation with note and pamphlet from home indicating desire for cremation Uncomplicated Bereavement: 7 years ago, mid May was his birthday, june is anniversary of his Impression/Plan: Recommendation to maintain FULL Involuntary Commitment. Informed patient's friend/roommate/POA of plan of care to renew involuntary commitment and seek inpatient hospitalization. Explained patient is high risk given age, the already attempted suicide attempt, her 's birthday being mid last month and anniversary (8th year) of mid June. Also noted Nurse from yesterday informed this clinician about POA concerns. POA stated "she keeps saying she wishes she would have , continued to feel like a burden, and does not talk much to her about things. Consulted with Dr. Izquierdo regarding the management and care of patient. Hospitalist in agreement with recommendations.
--- NOTE | 2020-06-26 23:52 | PDOC CONSULTATION ---
Consultation-Blank Consultation: Behavioral Health Consult Spoke to Attending Nurse at [phone]. Presenting Problem: FULL Involuntary Commitment for suicide attempt via overdosing on Diabetic medication, leaving a suicide note, and having pamphlet information. Clinical Presentation: Suicidal Ideation via Overdose of Diabetic medication Suicidal ideation with note and pamphlet from home indicating desire for cremation Uncomplicated Bereavement: 7 years ago, mid May was his birthday, mid June is anniversary of his Impression/Plan: Recommendation to maintain FULL Involuntary Commitment. Attending Nurse reported patient's friend/roommate/POA called and said she has not heard from behavioral health. Nurse made aware of plan of care and that not going to contact anyone until status change or new information can be given. Said would try to call her back but may not be until later or tomorrow. She reported patient tells medical staff she is not suicidal but friend/roommate/POA says patent tells her she wishes she would have . Consulted with Dr. Izquierdo regarding the management and care of patient. Hospitalist in agreement with recommendations.
[2020-06-27] MEDS: INSULIN REG, HUMAN 100 UNIT/ML 3 ML VIAL (PYX) SUBCUT SCH ×5 (03:12→21:51)
[2020-06-27] MEDS: LEVOTHYROXINE SODIUM 0.075 MG TABLET PO SCH (05:11)
[2020-06-27 06:54] LABS: ABSOLUTE BASOPHILS # (AUTO) 0.1 10^3/uL (0.0-0.2); ABSOLUTE EOSINOPHILS # (AUTO) 0.1 10^3/uL (0.0-0.6); ABSOLUTE LYMPHOCYTES (AUTO) 1.6 10^3/uL (0.5-4.7); ABSOLUTE MONOCYTES (AUTO) 1.2 10^3/uL (0.1-1.4); ABSOLUTE NEUT (AUTO) 6.9 10^3/uL (1.7-8.2); BASOPHILS % (AUTO) 0.9 % (0-2); EOSINOPHILS % (AUTO) 1.3 % (0-6); HEMOGLOBIN 10.4 g/dL (12.0-15.5); LYMPHOCYTES % (AUTO) 16.4 % (13-45); MEAN CORPUSCULAR HEMOGLOBIN 29.1 pg (27.0-33.4); MEAN CORPUSCULAR HGB CONC 33.6 g/dL (32.0-36.0); MEAN CORPUSCULAR VOLUME 87 fl (80-97); MONOCYTES % (AUTO) 11.7 % (3-13); PLATELET COUNT 273 10^3/uL (150-450); RED BLOOD COUNT 3.58 10^6/uL (3.72-5.28); RED CELL DISTRIBUTION WIDTH 13.2 % (11.5-14.0); SEGMENTED NEUTROPHILS % (AUTO) 69.7 % (42-78); TOTAL CELLS COUNTED % (AUTO) 100 %; WHITE BLOOD COUNT 9.9 10^3/uL (4.0-10.5)
[2020-06-27] MEDS ORDERED: GLIPIZIDE 5 MG TABLET PO SCH (08:00)
[2020-06-27] MEDS: LOSARTAN POTASSIUM 50 MG TABLET PO SCH (10:05)
[2020-06-27] MEDS: BUSPIRONE HCL 10 MG TABLET PO SCH ×2 (10:06→21:50)
[2020-06-27] MEDS: CARVEDILOL 6.25 MG TABLET PO SCH ×2 (10:06→21:50)
[2020-06-27] MEDS: FAMOTIDINE 20 MG TABLET PO SCH ×2 (10:06→21:50)
[2020-06-27] MEDS: FOLIC ACID 1 MG TABLET PO SCH (10:06)
[2020-06-27] MEDS: FLUOXETINE HCL 20 MG/5 ML UDCUP PO SCH (10:06)
[2020-06-27] MEDS: SITAGLIPTIN PHOSPHATE 50 MG TABLET PO SCH ×2 (10:06→17:03)
[2020-06-27] MEDS: PRASUGREL HCL 10 MG TABLET PO SCH (10:07)
[2020-06-27] MEDS: NYSTATIN CREAM 15 GM TP SCH ×2 (10:07→17:04)
[2020-06-27] MEDS: ENOXAPARIN SODIUM INJ 40 MG/0.4 ML DISP.SYRIN SUBCUT SCH (10:10)
[2020-06-27] MEDS: GLIPIZIDE 10 MG TABLET PO SCH ×2 (10:40→17:03)
[2020-06-27] MEDS ORDERED: ONDANSETRON 4 MG TAB.RAPDIS PO PRN (12:06)
[2020-06-27] MEDS ORDERED: ONDANSETRON 4 MG TAB.RAPDIS ONE (12:07)
--- NOTE | 2020-06-27 16:18 | PSYCHOLOGICAL NOTE ---
Psych Note - Psych Note Date seen by psych provider: 06/27/20 Time seen by psych provider: 16:00 Psych Note: 1615 called [facility] ([phone]); left message 1616 called [facility] ([phone]); confirmed the received the referral. It has not been reviewed yet. There is still [facility] available.
--- NOTE | 2020-06-27 18:14 | PDOC PROGRESS REPORT ---
Subjective Date:: 06/27/20 Subjective:: As per admitting physician's note patient is a 74-year-old female with a past medical history significant for Insulin-dependent diabetes mellitus, hypertension, hyperlipidemia, hypothyroidism, and chronic foot wound followed by the surgical clinic who was admitted 06/14/2020 with presumed sepsis with associated hypotension, hypothermia and hypoglycemia but subsequently found to h ave attempted suicide by intentional insulin overdose (Lantus and Humalog) and possibly losartan. The patient initially required Levophed for blood pressure support; this has been successfully weaned off. She also required D10 maintenance fluids to maintain blood glucose with frequent correction utilizing D50 pushes. Now with stable glucose. She has been downgraded to the medical floor and care transitioned to the hospitalist team. 06/22/2020. No acute events overnight. Saw patient this morning, comfortably resting in bed no apparent distress, pleasant and cooperative with physical examination, denies any fever, chills, nausea, vomiting. Unfortunately patient's right foot MRI is positive for osteomyelitis. Will reconsult surgery for further management. 06/23/2020. No acute events overnight. Comfortably resting in bed no apparent distress, p.o. tolerant, having normal bowel movement, was informed of MRI finding, agreeable to reconsulting surgery. Patient also complaining of chronic urinary incontinence which has been worsening since hospitalization. 06/24/2020. No acute events overnight. Saw patient this morning comfortably spent apparent distress, enjoying her breakfast, denies any fever, chills, nausea, vomiting. Planning to walk today with physical therapy as surgery has given her go ahead to walk with surgical boot. 06/25/2020. No acute events overnight. Patient comfortably sitting up in distress, enjoying her breakfast, denies any fever, chills, nausea, vomiting. P.o. tolerant. Still complaining of chronic urinary incontinence. ID has been consulted about right foot osteomyelitis, according to their note they do not think this is osteoarthritis or other chronic arthropathy due to diabetic complication, ID did not recommend further antibiotics and recommend continue wound care. At this point patient is medically optimized to be transferred to npatient psych if needed. 06/27/2020. No acute events overnight. Complaining of nausea. Denies any fever, chills, chest pain, shortness of breath, diarrhea, constipation. Reason For Visit: SEPSIS,DIABETIC FOOT INFECTION,HYPOGLYCEMIA, Physical Exam Vital Signs: Temp Pulse Resp BP Pulse Ox 97.9 F 58 L 18 131/48 H 98 06/27/20 16:00 06/27/20 16:00 06/27/20 16:00 06/27/20 16:00 06/27/20 16:00 Intake & Output 06/26/20 06/27/20 06/28/20 06:59 06:59 06:59 Intake Total 590 1290 120 Output Total 450 550 Balance 590 840 -430 Weight 50.7 kg 49.5 kg General appearance: PRESENT: no acute distress, well-developed, well-nourished Head exam: PRESENT: atraumatic, normocephalic Respiratory exam: PRESENT: clear to auscultation noreen. ABSENT: rales, rhonchi, wheezes Cardiovascular exam: PRESENT: RRR. ABSENT: diastolic murmur, rubs, systolic murmur GI/Abdominal exam: PRESENT: normal bowel sounds, soft. ABSENT: distended, guarding, mass, organolmegaly, rebound, tenderness Extremities exam: PRESENT: full ROM. ABSENT: calf tenderness, clubbing, pedal edema Neurological exam: PRESENT: alert, awake, oriented to person, oriented to place, oriented to time, oriented to situation, CN II-XII grossly intact. ABSENT: motor sensory deficit Psychiatric exam: PRESENT: depressed Results Laboratory Results: 06/27/20 06:15 06/25/20 08:39 06/27/20 06:15 WBC 9.9 RBC 3.58 L Hgb 10.4 L Hct 31.0 L MCV 87 MCH 29.1 MCHC 33.6 RDW 13.2 Plt Count 273 Seg Neutrophils % 69.7 06/14/20 06/14/20 06/22/20 07:25 07:25 01:19 Creatine Kinase 104 Troponin I < 0.012 0.026 06/22/20 16:06 Creatine Kinase Troponin I < 0.012 Impressions: Chest X-Ray 06/14/20 07:29 IMPRESSION: NO ACUTE RADIOGRAPHIC FINDING IN THE CHEST. Head CT 06/14/20 07:31 IMPRESSION: NO ACUTE INTRACRANIAL IMAGING FINDINGS. EVIDENCE OF ACUTE STROKE: NO. Cervical Spine CT 06/14/20 07:32 IMPRESSION: Mild multilevel degenerative change without evidence of acute bony abnormality of the cervical spine. Foot X-Ray 06/14/20 09:07 IMPRESSION: 1. No definite evidence of acute bony abnormality or definitive findings of osteomyelitis. 2. Midfoot collapse with significant degenerative changes suggestive of Charcot joint. Abdomen Ultrasound 06/16/20 00:00 IMPRESSION: Limited study due to overlying bowel gas. No acute findings. The patient is status post cholecystectomy. No ductal dilatation. Lower Extremity MRI 06/22/20 00:00 IMPRESSION: Positive for osteomyelitis. Assessment and Plan - Diagnosis (1) Osteomyelitis Qualifiers: Osteomyelitis type: other chronic Osteomyelitis location: foot Laterality: right Qualified Code(s): M86.671 - Other chronic osteomyelitis, right ankle and foot Is this a current diagnosis for this admission?: Yes Plan: Patient with history of chronic foot wound followed by outpatient wound care clinic unfortunately MRI showed positive for osteomyelitis. As per ID note she does not seem to have osteomyelitis and should be taken off of IV antibiotics. Please refer to ID note. Initially was placed on Ancef/clindamycin/vancomycin for empiric antibiotic therapy. See if 8 days of IV Ancef and clindamycin. Surgery has been reconsulted, recommended medical management. Surgery has signed off at this point. Infectious disease consulted. Recommendation continue wound care. Stop antibiotics. (2) Attempted suicide Is this a current diagnosis for this admission?: Yes Plan: Continue suicide precautions. Mental health services consulted. Have initiated medications per their recommendations; Prozac, clonidine transdermal patch, BuSpar and Haldol. Monitor QTc interval. Supportive care. (3) Depression Qualifiers: Depression Type: major depressive disorder Active/Remission status: current ly active Major depression episode severity: severe Psychotic features: without psychotic features Is this a current diagnosis for this admission?: Yes Plan: Mental health services consulted. Medication recommendations reviewed and implemented. (4) Diabetes Qualifiers: Diabetes mellitus chcf insulin use: with intermediate frame tender use Diabetes mellitus complication status: with skin complications Diabetes mellitus complication detail: with foot ulcer Is this a current diagnosis for this admission?: Yes Plan: A1c (05/13/2020) 7.0%. Hemoglobin A1c 7.0. Well-controlled. Renal function is WNL. Patient could be managed with oral hypoglycemic given attempted suicide with Lantus. Patient has been managed with sliding scale insulin while inpatient. Has not received any Lantus since being hospitalized. Patient is blood glucose level has been well managed with sliding scale insulin. Patient is started on sitagliptin 50 mg p.o. daily. Glipizide 5 mg p.o. twice daily. Patient is stating that she was on oral hypoglycemics however she does not know why she was stopped. She does not want to be started on Metformin as she did not tolerate it very well. Continue sitagliptin 50 mg p.o. twice daily. Glipizide 5 mg p.o. twice daily. Diabetic diet, Accu-Chek, hypoglycemia protocol. Sliding scale insulin. (5) Diabetic foot infection Is this a current diagnosis for this admission?: Yes Plan: Plan as per #1. (6) Drug overdose, intentional Qualifiers: Encounter type: subsequent encounter Qualified Code(s): T50.902D - Poisoning by unspecified drugs, medicaments and biological substances, intentional self-harm, subsequent encounter Is this a current diagnosis for this admission?: Yes Plan: Intentional insulin overdose. Management as outlined elsewhere. (7) Hypertension Is this a current diagnosis for this admission?: Yes Plan: Normotensive. Euvolemic. Current meds. Adjust meds as needed. Outpatient PCP follow-up. (8) Hypoglycemia associated with diabetes Is this a current diagnosis for this admission?: Yes Plan: Resolved. Monitor closely for recurrence. Hypoglycemia protocol. (9) Hypokalemia Is this a current diagnosis for this admission?: Yes Plan: Replete. (10) Hypomagnesemia Is this a current diagnosis for this admission?: Yes Plan: Replete. (11) Hypothermia Qualifiers: Encounter type: subsequent encounter Qualified Code(s): T68.XXXD - Hypothermia, subsequent encounter Is this a current diagnosis for this admission?: Yes Plan: Resolved. Secondary to sepsis, hypotension, insulin overdose. (12) Hypothyroidism Is this a current diagnosis for this admission?: Yes Plan: Thyroid panel is acceptable. Continue home dose levothyroxine 75 mcg daily. (13) Sepsis associated hypotension Is this a current diagnosis for this admission?: Yes Plan: Resolved. - Time Time Spent with patient: 35 or more minutes Anticipated Discharge Disposition: Psych Hospital/Unit Anticipated Discharge Timeframe: when bed available
[2020-06-27] MEDS: ATORVASTATIN CALCIUM 20 MG TABLET PO SCH (21:50)
[2020-06-28] MEDS: LEVOTHYROXINE SODIUM 0.075 MG TABLET PO SCH (06:28)
[2020-06-28] MEDS: INSULIN REG, HUMAN 100 UNIT/ML 3 ML VIAL (PYX) SUBCUT SCH ×4 (08:43→23:51)
[2020-06-28] MEDS: LOSARTAN POTASSIUM 50 MG TABLET PO SCH (11:02)
[2020-06-28] MEDS: PRASUGREL HCL 10 MG TABLET PO SCH (11:02)
[2020-06-28] MEDS: FOLIC ACID 1 MG TABLET PO SCH (11:02)
[2020-06-28] MEDS: FAMOTIDINE 20 MG TABLET PO SCH ×2 (11:02→23:50)
[2020-06-28] MEDS: CARVEDILOL 6.25 MG TABLET PO SCH ×2 (11:03→23:50)
[2020-06-28] MEDS: SITAGLIPTIN PHOSPHATE 50 MG TABLET PO SCH ×2 (11:03→17:39)
[2020-06-28] MEDS: GLIPIZIDE 10 MG TABLET PO SCH ×2 (11:03→17:39)
[2020-06-28] MEDS: BUSPIRONE HCL 10 MG TABLET PO SCH ×2 (11:04→23:50)
[2020-06-28] MEDS: ENOXAPARIN SODIUM INJ 40 MG/0.4 ML DISP.SYRIN SUBCUT SCH (11:04)
[2020-06-28] MEDS: FLUOXETINE HCL 20 MG/5 ML UDCUP PO SCH (11:05)
[2020-06-28] MEDS: NYSTATIN CREAM 15 GM TP SCH ×2 (11:06→19:00)
[2020-06-28] MEDS ORDERED: POLYETHYLENE GLYCOL 3350 POWDER 17 GM/1 PACKET PO PRN (13:25)
[2020-06-28] MEDS ORDERED: MAGNESIUM HYDROXIDE SUSP 30 ML UDCUP PO PRN (13:25)
[2020-06-28] MEDS ORDERED: BISACODYL 5 MG TABEC PO PRN (13:25)
--- NOTE | 2020-06-28 13:36 | PDOC PROGRESS REPORT ---
Subjective Date:: 06/28/20 Subjective:: As per admitting physician's note patient is a 74-year-old female with a past medical history significant for Insulin-dependent diabetes mellitus, hypertension, hyperlipidemia, hypothyroidism, and chronic foot wound followed by the surgical clinic who was admitted 06/14/2020 with presumed sepsis with associated hypotension, hypothermia and hypoglycemia but subsequently found to h ave attempted suicide by intentional insulin overdose (Lantus and Humalog) and possibly losartan. The patient initially required Levophed for blood pressure support; this has been successfully weaned off. She also required D10 maintenance fluids to maintain blood glucose with frequent correction utilizing D50 pushes. Now with stable glucose. She has been downgraded to the medical floor and care transitioned to the hospitalist team. 06/22/2020. No acute events overnight. Saw patient this morning, comfortably resting in bed no apparent distress, pleasant and cooperative with physical examination, denies any fever, chills, nausea, vomiting. Unfortunately patient's right foot MRI is positive for osteomyelitis. Will reconsult surgery for further management. 06/23/2020. No acute events overnight. Comfortably resting in bed no apparent distress, p.o. tolerant, having normal bowel movement, was informed of MRI finding, agreeable to reconsulting surgery. Patient also complaining of chronic urinary incontinence which has been worsening since hospitalization. 06/24/2020. No acute events overnight. Saw patient this morning comfortably spent apparent distress, enjoying her breakfast, denies any fever, chills, nausea, vomiting. Planning to walk today with physical therapy as surgery has given her go ahead to walk with surgical boot. 06/25/2020. No acute events overnight. Patient comfortably sitting up in distress, enjoying her breakfast, denies any fever, chills, nausea, vomiting. P.o. tolerant. Still complaining of chronic urinary incontinence. ID has been consulted about right foot osteomyelitis, according to their note they do not think this is osteoarthritis or other chronic arthropathy due to diabetic complication, ID did not recommend further antibiotics and recommend continue wound care. At this point patient is medically optimized to be transferred to npatient psych if needed. 06/27/2020. No acute events overnight. Complaining of nausea. Denies any fever, chills, chest pain, shortness of breath, diarrhea, constipation. 02/26/2020. No acute events overnight. Nausea has resolved. Complaining of constipation, patient has developed a stage II sacral decubitus ulcer. Denies any fever, chills, nausea, vomiting, diarrhea. Reason For Visit: SEPSIS,DIABETIC FOOT INFECTION,HYPOGLYCEMIA, Physical Exam Vital Signs: Temp Pulse Resp BP Pulse Ox 97.8 F 57 L 16 119/45 L 98 06/28/20 11:46 06/28/20 11:46 06/28/20 11:46 06/28/20 11:46 06/28/20 11:46 Intake & Output 06/27/20 06/28/20 06/29/20 06:59 06:59 06:59 Intake Total 1290 240 120 Output Total 450 750 Balance 840 -510 120 Weight 49.5 kg 49.2 kg General appearance: PRESENT: no acute distress, well-developed, well-nourished Head exam: PRESENT: atraumatic, normocephalic Neck exam: ABSENT: carotid bruit, JVD, lymphadenopathy, thyromegaly Respiratory exam: PRESENT: clear to auscultation noreen. ABSENT: rales, rhonchi, wheezes GI/Abdominal exam: PRESENT: normal bowel sounds, soft. ABSENT: distended, guarding, mass, organolmegaly, rebound, tenderness Extremities exam: PRESENT: full ROM, other - Stage II sacral decubitus ulcer, no sign of infection.. ABSENT: calf tenderness, clubbing, pedal edema Neurological exam: PRESENT: alert, awake, oriented to person, oriented to place, oriented to time, oriented to situation, CN II-XII grossly intact. ABSENT: motor sensory deficit Skin exam: PRESENT: dry, intact, warm. ABSENT: cyanosis, rash Results Laboratory Results: 06/27/20 06:15 06/25/20 08:39 06/14/20 06/14/20 06/22/20 07:25 07:25 01:19 Creatine Kinase 104 Troponin I < 0.012 0.026 06/22/20 16:06 Creatine Kinase Troponin I < 0.012 Impressions: Chest X-Ray 06/14/20 07:29 IMPRESSION: NO ACUTE RADIOGRAPHIC FINDING IN THE CHEST. Head CT 06/14/20 07:31 IMPRESSION: NO ACUTE INTRACRANIAL IMAGING FINDINGS. EVIDENCE OF ACUTE STROKE: NO. Cervical Spine CT 06/14/20 07:32 IMPRESSION: Mild multilevel degenerative change without evidence of acute bony abnormality of the cervical spine. Foot X-Ray 06/14/20 09:07 IMPRESSION: 1. No definite evidence of acute bony abnormality or definitive findings of osteomyelitis. 2. Midfoot collapse with significant degenerative changes suggestive of Charcot joint. Abdomen Ultrasound 06/16/20 00:00 IMPRESSION: Limited study due to overlying bowel gas. No acute findings. The patient is status post cholecystectomy. No ductal dilatation. Lower Extremity MRI 06/22/20 00:00 IMPRESSION: Positive for osteomyelitis. Assessment and Plan - Diagnosis (1) Osteomyelitis Qualifiers: Osteomyelitis type: other chronic Osteomyelitis location: foot Laterality: right Qualified Code(s): M86.671 - Other chronic osteomyelitis, right ankle and foot Is this a current diagnosis for this admission?: Yes Plan: Patient with history of chronic foot wound followed by outpatient wound care clinic unfortunately MRI showed positive for osteomyelitis. As per ID note she does not seem to have osteomyelitis and should be taken off of IV antibiotics. Please refer to ID note. Initially was placed on Ancef/clindamycin/vancomycin for empiric antibiotic therapy. See if 8 days of IV Ancef and clindamycin. Surgery has been reconsulted, recommended medical management. Surgery has signed off at this point. Infectious disease consulted. Recommendation continue wound care. Stop antibiotics. (2) Attempted suicide Is this a current diagnosis for this admission?: Yes Plan: Continue suicide precautions. Mental health services consulted. Have initiated medications per their recommendations; Prozac, clonidine transdermal patch, BuSpar and Haldol. Monitor QTc interval. Supportive care. (3) Depression Qualifiers: Depression Type: major depressive disorder Active/Remission status: currently active Major depression episode severity: severe Psychotic features: without psychotic features Is this a current diagnosis for this admission?: Yes Plan: Mental health services consulted. Medication recommendations reviewed and implemented. (4) Diabetes Qualifiers: Diabetes mellitus usp insulin use: with tank terminal gauger use Diabetes mellitus complication status: with skin complications Diabetes mellitus complication detail: with foot ulcer Is this a current diagnosis for this admission?: Yes Plan: A1c (05/13/2020) 7.0%. Hemoglobin A1c 7.0. Well-controlled. Renal function is WNL. Patient could be managed with oral hypoglycemic given attempted suicide with Lantus. Patient has been managed with sliding scale insulin while inpatient. Has not r eceived any Lantus since being hospitalized. Patient is blood glucose level has been well managed with sliding scale insulin. Patient is started on sitagliptin 50 mg p.o. daily. Glipizide 5 mg p.o. twice daily. Patient is stating that she was on oral hypoglycemics however she does not know why she was stopped. She does not want to be started on Metformin as she did not tolerate it very well. Continue sitagliptin 50 mg p.o. twice daily. Glipizide 5 mg p.o. twice daily. Diabetic diet, Accu-Chek, hypoglycemia protocol. Sliding scale insulin. (5) Diabetic foot infection Is this a current diagnosis for this admission?: Yes Plan: Plan as per #1. (6) Drug overdose, intentional Qualifiers: Encounter type: subsequent encounter Qualified Code(s): T50.902D - Poisoning by unspecified drugs, medicaments and biological substances, intentional self-harm, subsequent encounter Is this a current diagnosis for this admission?: Yes Plan: Intentional insulin overdose. Management as outlined elsewhere. (7) Hypertension Is this a current diagnosis for this admission?: Yes Plan: Normotensive. Euvolemic. Current meds. Adjust meds as needed. Outpatient PCP follow-up. (8) Hypoglycemia associated with diabetes Is this a current diagnosis for this admission?: Yes Plan: Resolved. Monitor closely for recurrence. Hypoglycemia protocol. (9) Hypokalemia Is this a current diagnosis for this admission?: Yes Plan: Replete. (10) Hypomagnesemia Is this a current diagnosis for this admission?: Yes Plan: Replete. (11) Hypothermia Qualifiers: Encounter type: subsequent encounter Qualified Code(s): T68.XXXD - Hypothermia, subsequent encounter Is this a current diagnosis for this admission?: Yes Plan: Resolved. Secondary to sepsis, hypotension, insulin overdose. (12) Hypothyroidism Is this a current diagnosis for this admission?: Yes Plan: Thyroid panel is acceptable. Continue home dose levothyroxine 75 mcg daily. (13) Sepsis associated hypotension Is this a current diagnosis for this admission?: Yes Plan: Resolved. (14) Sacral decubitus ulcer, stage II Is this a current diagnosis for this admission?: Yes Plan: Stage II decubitus ulcer in the sacral area, no sign of infection. Encourage ambulation, frequent positioning, care consult and wound care. - Time Time Spent with patient: 25-34 minutes Anticipated Discharge Disposition: Psych Hospital/Unit Anticipated Discharge Timeframe: when bed available
[2020-06-28] MEDS: DOCUSATE SODIUM 100 MG CAPSULE PO SCH (17:39)
--- NOTE | 2020-06-28 18:52 | PDOC CONSULTATION ---
Consultation-Blank Consultation: Behavioral Health Consult Continued placement efforts today. Presenting Problem: FULL Involuntary Commitment for suicide attempt via overdosing on Diabetic medication, leaving a suicide note, and having pamphlet information. Clinical Presentation: Suicidal Ideation via Overdose of Diabetic medication Suicidal ideation with note and pamphlet from home indicating desire for cremation Uncomplicated Bereavement: 7 years ago, mid May was his birthday, june is anniversary of his Impression/Plan: Recommendation to maintain FULL Involuntary Commitment. Continued placement efforts today. at this point it seems 6 facilities have denied patient. Focused on 2 facilities that no disposition had been returned. Will reassess tomorrow in person. Consulted with Dr. Izquierdo regarding the management and care of patient. Hospitalist in agreement with recommendations.
[2020-06-28] MEDS: ATORVASTATIN CALCIUM 20 MG TABLET PO SCH (23:51)
[2020-06-29 03:31] LABS: APPEARANCE,URINE SLIGHTLY-CLOUDY; BILIRUBIN,URINE NEGATIVE (NEGATIVE); COLOR,URINE YELLOW; GLUCOSE, URINE NEGATIVE (NEGATIVE); KETONES,URINE NEGATIVE (NEGATIVE); LEUKOCYTE ESTERASE,URINE LARGE (NEGATIVE); NITRITE,URINE NEGATIVE (NEGATIVE); PROTEIN,URINE NEGATIVE (NEGATIVE); URINE SPECIFIC GRAVITY 1.012; UROBILINOGEN,URINE NEGATIVE mg/dL (<2.0)
[2020-06-29] MEDS: LEVOTHYROXINE SODIUM 0.075 MG TABLET PO SCH (05:29)
[2020-06-29 07:39] LABS: ANION GAP 7 (5-19); BLOOD UREA NITROGEN 23 mg/dL (7-20); CALCIUM 9.3 mg/dL (8.4-10.2); CARBON DIOXIDE 25 mmol/L (22-30); CHLORIDE 103 mmol/L (98-107); GLUCOSE 90 mg/dL (75-110); POTASSIUM 4.6 mmol/L (3.6-5.0)
[2020-06-29] MEDS: INSULIN REG, HUMAN 100 UNIT/ML 3 ML VIAL (PYX) SUBCUT SCH ×4 (08:00→22:59)
[2020-06-29] MEDS: GLIPIZIDE 10 MG TABLET PO SCH ×2 (10:45→15:50)
[2020-06-29] MEDS: SITAGLIPTIN PHOSPHATE 50 MG TABLET PO SCH ×2 (11:11→15:50)
[2020-06-29] MEDS: LOSARTAN POTASSIUM 50 MG TABLET PO SCH (11:12)
[2020-06-29] MEDS: BUSPIRONE HCL 10 MG TABLET PO SCH (11:12)
[2020-06-29] MEDS: DOCUSATE SODIUM 100 MG CAPSULE PO SCH ×2 (11:13→18:22)
[2020-06-29] MEDS: CARVEDILOL 6.25 MG TABLET PO SCH (11:13)
[2020-06-29] MEDS: FOLIC ACID 1 MG TABLET PO SCH (11:13)
[2020-06-29] MEDS: ENOXAPARIN SODIUM INJ 40 MG/0.4 ML DISP.SYRIN SUBCUT SCH (11:14)
[2020-06-29] MEDS: PRASUGREL HCL 10 MG TABLET PO SCH (11:20)
[2020-06-29] MEDS: FAMOTIDINE 20 MG TABLET PO SCH (11:21)
[2020-06-29] MEDS: NYSTATIN CREAM 15 GM TP SCH (11:28)
[2020-06-29] MEDS: FLUOXETINE HCL 20 MG/5 ML UDCUP PO SCH (11:29)
--- NOTE | 2020-06-29 19:45 | PDOC CONSULTATION ---
Consultation-Blank Consultation: Behavioral Health Consult: RE Evaluation Continued placement efforts today. Presenting Problem: FULL Involuntary Commitment for suicide attempt via overdosing on Diabetic medication, leaving a suicide note, and having pamphlet information. Clinical Presentation: Suicidal Ideation via Overdose of Diabetic medication Suicidal ideation with note and pamphlet from home indicating desire for cremation Uncomplicated Bereavement: 7 years ago, mid May was his day, june is anniversary of his Impression/Plan: Recommendation to maintain FULL Involuntary Commitment. Continued placement efforts today. At this point about 7 facilities have denied patient. Focused on referral to [facility], trying to get in touch with [facility] without success and re faxed [facility] a referral. Consulted with Dr. Izquierdo regarding the management and care of patient. Hospitalist in agreement with recommendations. Patient is high risk due to age, current attempt, last month being 's birthday, this month being the 8 year anniversary of his , and her continued statements to friend/roommate/POA that she wished she would have been successful.
--- NOTE | 2020-06-29 20:27 | PDOC PROGRESS REPORT ---
Subjective Date:: 06/29/20 Subjective:: NAEO Reason For Visit: SEPSIS,DIABETIC FOOT INFECTION,HYPOGLYCEMIA, Physical Exam Vital Signs: Temp Pulse Resp BP Pulse Ox 98.1 F 56 L 16 108/59 L 100 06/29/20 03:46 06/29/20 03:46 06/29/20 03:46 06/29/20 03:46 06/29/20 03:46 Intake & Output 06/28/20 06/29/20 06/30/20 06:59 06:59 06:59 Intake Total 240 120 Output Total 750 800 Balance -510 -680 Weight 49.2 kg 48 kg General appearance: PRESENT: no acute distress, cooperative Eye exam: ABSENT: scleral icterus Mouth exam: PRESENT: moist Throat exam: ABSENT: post pharyngeal erythema Neck exam: ABSENT: JVD Respiratory exam: PRESENT: unlabored Cardiovascular exam: PRESENT: RRR GI/Abdominal exam: PRESENT: normal bowel sounds, soft. ABSENT: tenderness Extremities exam: ABSENT: pedal edema Musculoskeletal exam: PRESENT: ambulatory Neurological exam: PRESENT: alert, awake Psychiatric exam: PRESENT: depressed, flat affect Skin exam: ABSENT: jaundice, rash Results Laboratory Results: 06/27/20 06:15 06/29/20 06:28 06/29/20 06/29/20 01:00 06:28 Sodium 134.8 L Potassium 4.6 Chloride 103 Carbon Dioxide 25 Anion Gap 7 BUN 23 H Creatinine 0.80 Est GFR ( Amer) > 60 Glucose 90 Calcium 9.3 Urine Color YELLOW Urine Appearance SLIGHTLY-CLOUDY Urine pH 7.0 Ur Specific [place] 1.012 Urine Protein NEGATIVE Urine Glucose (UA) NEGATIVE Urine Ketones NEGATIVE Urine Blood SMALL H Urine Nitrite NEGATIVE Ur Leukocyte Esterase LARGE H Urine WBC (Auto) 92 Urine RBC (Auto) 6 06/14/20 06/14/20 06/22/20 07:25 07:25 01:19 Creatine Kinase 104 Troponin I < 0.012 0.026 06/22/20 16:06 Creatine Kinase Troponin I < 0.012 Impressions: Chest X-Ray 06/14/20 07:29 IMPRESSION: NO ACUTE RADIOGRAPHIC FINDING IN THE CHEST. Head CT 06/14/20 07:31 IMPRESSION: NO ACUTE INTRACRANIAL IMAGING FINDINGS. EVIDENCE OF ACUTE STROKE: NO. Cervical Spine CT 06/14/20 07:32 IMPRESSION: Mild multilevel degenerative change without evidence of acute bony abnormality of the cervical spine. Foot X-Ray 06/14/20 09:07 IMPRESSION: 1. No definite evidence of acute bony abnormality or definitive findings of osteomyelitis. 2. Midfoot collapse with significant degenerative changes suggestive of Charcot joint. Abdomen Ultrasound 06/16/20 00:00 IMPRESSION: Limited study due to overlying bowel gas. No acute findings. The patient is status post cholecystectomy. No ductal dilatation. Lower Extremity MRI 06/22/20 00:00 IMPRESSION: Positive for osteomyelitis. Assessment and Plan - Diagnosis (1) Aspiration into airway Qualifiers: Encounter type: initial encounter Qualified Code(s): T17.908A - Unspecified foreign body in respiratory tract, part unspecified causing other injury, initial encounter Is this a current diagnosis for this admission?: Yes (2) Depression Qualifiers: Depression Type: major depressive disorder Active/Remission status: currently active Major depression episode severity: severe Psychotic features: without psychotic features Is this a current diagnosis for this admission?: Yes (3) Drug overdose, intentional Qualifiers: Encounter type: subsequent encounter Qualified Code(s): T50.902D - Poisoning by unspecified drugs, medicaments and biological substances, intentional self-harm, subsequent encounter Is this a current diagnosis for this admission?: Yes (4) Hypertension Qualifiers: Hypertension type: essential hypertension Qualified Code(s): I10 - Essential (primary) hypertension Is this a current diagnosis for this admission?: Yes (5) Hypoglycemia associated with diabetes Is this a current diagnosis for this admission?: Yes (6) Hypokalemia Is this a current diagnosis for this admission?: Yes (7) Hypomagnesemia Is this a current diagnosis for this admission?: Yes (8) Hypothyroidism Qualifiers: Hypothyroidism type: acquired Qualified Code(s): E03.9 - Hypothyroidism, unspecified Is this a current diagnosis for this admission?: Yes - Plan Summary Summary: 74-year-old female with insulin-dependent diabetes mellitus, hypertension, hyperlipidemia, hypothyroidism, and chronic diabetic foot infection followed by the surgical clinic who was admitted 06/14/2020 with attempted suicide by intentional insulin overdose (Lantus and Humalog) and possibly losartan. The patient initially required Levophed for blood pressure support and D10 maintenance fluids to maintain blood glucose with frequent correction utilizing D50 pushes. She was subsequently transferred to the medical floor and care transitioned to the hospitalist team on 06/18/2020. Attempted suicide (intentional insulin overdose) major depressive disorder without psychotic features Continue suicide precautions. Mental health services consulted. Have initiated medications per their recommendations; Prozac, clonidine polk sdermal patch, BuSpar and Haldol. Monitor QTc interval. Supportive care. 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 Initially was placed on Ancef/clindamycin/vancomycin for empiric antibiotic therapy. Surgery was consulted, recommended medical management and signed off. Infectious disease consulted. As per ID note she does not seem to have osteomyelitis and should be taken off of IV antibiotics. Continue wound care. Diabetes mellitus type 2 with longwall foreman insulin use: A1c (05/13/2020) 7.0%. Well-controlled. Renal function is WNL. Patient could be managed with oral hypoglycemic given attempted suicide with Lantus. Patient has been managed with sliding scale insulin while inpatient. Has not re ceived any Lantus since being hospitalized. Patient is blood glucose level has been well managed with sliding scale insulin. Patient is started on sitagliptin 50 mg p.o. daily. Glipizide 5 mg p.o. twice daily. Patient is stating that she was on oral hypoglycemics however she does not know why she was stopped. She does not want to be started on Metformin as she did not tolerate it very well. Continue sitagliptin 50 mg p.o. twice daily. Glipizide 5 mg p.o. twice daily. Diabetic diet, Accu-Chek, hypoglycemia protocol. Sliding scale insulin. Essential Hypertension Normotensive. Euvolemic. Current meds. Adjust meds as needed. Outpatient PCP follow-up. Hypothyroidism Thyroid panel is acceptable. Continue home dose levothyroxine 75 mcg daily. Sacral decubitus ulcer, stage II: no sign of infection. Encourage ambulation, frequent positioning, care consult and wound care. Dispo: Patient is medically cleared for discharge to a psychiatric facility. She is receiving no intravenous medications and does not need to have a PIV in place for medical reasons, but unfortunately this is hospital policy for all patients in the hospital to have at least one PIV in place at all times. PIV will be removed prior to transfer to a psychiatric facility. COVID-19 test ordered in preparation for placement. - Time Time Spent with patient: 25-34 minutes Anticipated Discharge Disposition: Psych Hospital/Unit Anticipated Discharge Timeframe: within 24 hours
[2020-06-30] MEDS: FAMOTIDINE 20 MG TABLET PO SCH ×3 (00:15→23:39)
[2020-06-30] MEDS: BUSPIRONE HCL 10 MG TABLET PO SCH ×3 (00:15→23:40)
[2020-06-30] MEDS: ATORVASTATIN CALCIUM 20 MG TABLET PO SCH ×2 (00:15→23:39)
[2020-06-30] MEDS: CARVEDILOL 6.25 MG TABLET PO SCH ×3 (00:16→23:59)
[2020-06-30] MEDS: NYSTATIN CREAM 15 GM TP SCH ×3 (00:20→17:16)
[2020-06-30] MEDS: LEVOTHYROXINE SODIUM 0.075 MG TABLET PO SCH (05:08)
[2020-06-30] MEDS: DOCUSATE SODIUM 100 MG CAPSULE PO SCH ×2 (09:15→17:16)
[2020-06-30] MEDS: FLUOXETINE HCL 20 MG/5 ML UDCUP PO SCH (09:15)
[2020-06-30] MEDS: GLIPIZIDE 10 MG TABLET PO SCH ×2 (09:15→15:23)
[2020-06-30] MEDS: PRASUGREL HCL 10 MG TABLET PO SCH (09:16)
[2020-06-30] MEDS: LOSARTAN POTASSIUM 50 MG TABLET PO SCH (09:16)
[2020-06-30] MEDS: FOLIC ACID 1 MG TABLET PO SCH (09:16)
[2020-06-30] MEDS: ENOXAPARIN SODIUM INJ 40 MG/0.4 ML DISP.SYRIN SUBCUT SCH (09:17)
[2020-06-30] MEDS: INSULIN REG, HUMAN 100 UNIT/ML 3 ML VIAL (PYX) SUBCUT SCH ×4 (09:17→23:37)
[2020-06-30] MEDS: SITAGLIPTIN PHOSPHATE 50 MG TABLET PO SCH ×2 (09:18→15:23)
--- NOTE | 2020-06-30 13:42 | PDOC CONSULTATION ---
Consultation-Blank Consultation: Reason for Consult: Intentional overdose check in with patient: Patient reports continued difficulty with depression and frustration in not being able to walk. She reports at home she was able to get around with a walk and cook, baked, bathed, and dressed herself. She reports she is now struggling with incontinence and needing assistance to walk. She reports she does not know why she tried to kill herself and reports "God didn't want me, so here I am." Impression/plan: Patient is recommended for continued IVC. Patient's eye Contact is fair but there is noticeable mood swings when talking with patient. She reports she is sorry and wants to go home, but she does not say she will never try to hurt herself again or report feeling better now that medications have been started. Patient is high risk due to age, attempt, and continued dysphoria and mood swings.
[2020-07-01 02:18] LABS: APPEARANCE,URINE CLOUDY; BILIRUBIN,URINE NEGATIVE (NEGATIVE); COLOR,URINE YELLOW; GLUCOSE, URINE NEGATIVE (NEGATIVE); KETONES,URINE NEGATIVE (NEGATIVE); LEUKOCYTE ESTERASE,URINE LARGE (NEGATIVE); NITRITE,URINE POSITIVE (NEGATIVE); PROTEIN,URINE 30 mg/dL (NEGATIVE); URINE SPECIFIC GRAVITY 1.008; UROBILINOGEN,URINE NEGATIVE mg/dL (<2.0)
[2020-07-01] MEDS ORDERED: SULFAMETHOXAZOLE/TRIMETHOPRIM 800-160 MG TABLET PO SCH (06:00)
[2020-07-01] MEDS: LEVOTHYROXINE SODIUM 0.075 MG TABLET PO SCH (06:09)
[2020-07-01] MEDS: INSULIN REG, HUMAN 100 UNIT/ML 3 ML VIAL (PYX) SUBCUT SCH ×4 (07:42→22:49)
[2020-07-01 08:43] LABS: ABSOLUTE BASOPHILS # (AUTO) 0.1 10^3/uL (0.0-0.2); ABSOLUTE EOSINOPHILS # (AUTO) 0.2 10^3/uL (0.0-0.6); ABSOLUTE LYMPHOCYTES (AUTO) 1.6 10^3/uL (0.5-4.7); ABSOLUTE MONOCYTES (AUTO) 1.2 10^3/uL (0.1-1.4); ABSOLUTE NEUT (AUTO) 6.4 10^3/uL (1.7-8.2); BASOPHILS % (AUTO) 1.3 % (0-2); EOSINOPHILS % (AUTO) 1.8 % (0-6); HEMATOCRIT 32.4 % (36.0-47.0); HEMOGLOBIN 10.7 g/dL (12.0-15.5); LYMPHOCYTES % (AUTO) 17.2 % (13-45); MEAN CORPUSCULAR VOLUME 88 fl (80-97); MONOCYTES % (AUTO) 12.4 % (3-13); PLATELET COUNT 320 10^3/uL (150-450); RED BLOOD COUNT 3.69 10^6/uL (3.72-5.28); RED CELL DISTRIBUTION WIDTH 13.5 % (11.5-14.0); SEGMENTED NEUTROPHILS % (AUTO) 67.3 % (42-78); TOTAL CELLS COUNTED % (AUTO) 100 %; WHITE BLOOD COUNT 9.6 10^3/uL (4.0-10.5)
[2020-07-01 09:03] LABS: ANION GAP 9 (5-19); BLOOD UREA NITROGEN 23 mg/dL (7-20); CALCIUM 9.6 mg/dL (8.4-10.2); CARBON DIOXIDE 24 mmol/L (22-30); CHLORIDE 104 mmol/L (98-107); GLUCOSE 101 mg/dL (75-110); POTASSIUM 4.8 mmol/L (3.6-5.0)
[2020-07-01] MEDS: SITAGLIPTIN PHOSPHATE 50 MG TABLET PO SCH ×2 (09:27→17:41)
[2020-07-01] MEDS: ENOXAPARIN SODIUM INJ 40 MG/0.4 ML DISP.SYRIN SUBCUT SCH (09:27)
[2020-07-01] MEDS: BUSPIRONE HCL 10 MG TABLET PO SCH ×2 (09:28→22:44)
[2020-07-01] MEDS: FAMOTIDINE 20 MG TABLET PO SCH ×2 (09:28→22:44)
[2020-07-01] MEDS: GLIPIZIDE 10 MG TABLET PO SCH ×2 (09:28→17:41)
[2020-07-01] MEDS: FOLIC ACID 1 MG TABLET PO SCH (09:31)
[2020-07-01] MEDS ORDERED: NORMAL SALINE 1000 ML 1,000 ML IV ONE (10:15)
--- NOTE | 2020-07-01 10:17 | PSYCHOLOGICAL NOTE ---
Psych Note - Psych Note Date seen by psych provider: 07/01/20 Psych Note: Placement efforts have been ongoing; unfortunately at this time, it is noted the patient has been having urinary retention issues and now has a posey placed. Placement efforts have been discontinued until patient can be medically cleared; inpatient psychiatric hospitals are unable to take any patients with a posey. There is concerns the patient may need a higher level of care due to waxing and waning of medical symptoms at a facility that also offers psychiatric consultation and medication management/treatment. Re-evaluation for IVC due to patient still in [facility] secondary to inability to resolve acute medical concerns. IVC Criteria per [facility] 122C Dangerous to others Within the relevant past the individual No has inflicted or attempted to inflict or threatened to inflict serious bodily harm on another AND No that there is a reasonable probability that this conduct will be repeated as there is an absence of supervision or structure to prevent. OR No has acted in such a way as to create a substantial risk of serious bodily harm to another AND No that there is a reasonable probability that this conduct will be repeated as there is an absence of supervision or structure to prevent. OR No has engaged in extreme destruction of property AND NO that there is a reasonable probability that this conduct will be repeated as there is an absence of supervision or structure to prevent. Previous episodes of dangerousness to others, when applicable, may be considered when determining reasonable probability of future dangerous conduct. Clear, cogent, and convincing evidence that an individual has committed a homicide in the relevant past is prima facie evidence of dangerousness to others. Dangerous to self Within the relevant past the individual has done any of the following: acted in such a way as to show ALL of the following: No The individual would be unable without care, supervision, and the continued assistance of others not otherwise available, to exercise self- control, judgment, and discretion in the conduct of the individual's daily responsibilities and social relations or to satisfy the individual's need for nourishment, personal or medical care, longterm, or self-protection and safety. AND No There is a reasonable probability of the individual suffering serious physical debilitation within the near future unless adequate treatment is given. A showing of behavior that is grossly irrational, of actions that the individual is unable to control, of behavior that is grossly inappropriate to the situation, or of other evidence of severely impaired insight and judgment shall create a prima facie inference that the individual is unable to care for himself or herself. OR YES has attempted suicide or threatened suicide AND YES that there is a reasonable probability of suicide unless adequate treatment is given as there is an absence of supervision or structure to prevent suicide of patient who has made an attempt, serious gesture or threat. Patient intentional overdosed resulting in the need for significant medical treatment. Patient continues to reports depression and stated during previous check in "God did not want me" when talking about living. OR No has mutilated himself or herself or attempted to mutilate himself or herself AND No that there is a reasonable probability of serious self-mutilation unless adequate treatment is given as there is an absence of supervision or structure to prevent. NOTE: Previous episodes of dangerousness to self, when applicable, may be considered when determining reasonable probability of physical debilitation, suicide, or self-mutilation. Medication recommendations per [facility] contracted psychiatrist are as follows: Impression\\plan: Patient is recommended for IVC; paperwork is signed, faxed to auditing clerk and placed in patient's chart. Patient continues to demonstrate and report dsyphoria with self degrading comments (ie God did not want me). Patient is at [facility] secondary to inability to resolve acute medical concerns. She is high risk due to her age, significant attempt, mental health, low self esteem, and her subjective belief that she doesn't deserve to live. Multiple placements have been attempted without success due to concerns for her medical presentation (per psychiatric hospitals); unfortunately, due to waxing and waning of medical presentation, efforts had to be halted again. There is concerns the patient may need a higher level of care due to waxing and waning of medical symptoms at a facility that also offers psychiatric consultation and medication management/treatment. Dr. Izquierdo was consulted to care management of this patient; attending physicians in agreement with recommendations and disposition.
[2020-07-01] MEDS: PRASUGREL HCL 10 MG TABLET PO SCH (11:11)
[2020-07-01] MEDS: FLUOXETINE HCL 20 MG/5 ML UDCUP PO SCH (11:11)
[2020-07-01] MEDS: NYSTATIN CREAM 15 GM TP SCH ×2 (17:17→19:05)
--- NOTE | 2020-07-01 18:21 | PDOC PROGRESS REPORT ---
Subjective Date:: 07/01/20 Subjective:: Overnight, had urinary retention requiring Green catheter placement. She denies having had any fever, chills, abdominal pain, back pain, suprapubic pain, dysuria, frequency prior to the retention episode. She notes that it took several attempts to place the Green catheter and she is now "raw down there." She is requesting that the Green remain in place until tomorrow to be removed because she is worried about becoming more raw as a result of the Green being removed. Reason For Visit: SEPSIS,DIABETIC FOOT INFECTION,HYPOGLYCEMIA, Physical Exam Vital Signs: Temp Pulse Resp BP Pulse Ox 97.4 F 62 14 115/50 L 100 07/01/20 12:00 07/01/20 12:00 07/01/20 12:00 07/01/20 12:00 07/01/20 12:00 Intake & Output 06/30/20 07/01/20 07/02/20 06:59 06:59 06:59 Intake Total 1720 1122 Output Total 1000 900 900 Balance 720 222 -900 Weight 49 kg 47.5 kg General appearance: PRESENT: no acute distress, cooperative Eye exam: ABSENT: scleral icterus Mouth exam: PRESENT: moist Throat exam: ABSENT: post pharyngeal erythema Neck exam: ABSENT: JVD Respiratory exam: PRESENT: clear to auscultation noreen Cardiovascular exam: PRESENT: RRR GI/Abdominal exam: PRESENT: normal bowel sounds, soft. ABSENT: tenderness Gentrourinary exam: PRESENT: indwelling catheter Extremities exam: ABSENT: joint swelling, pedal edema Musculoskeletal exam: PRESENT: ambulatory Neurological exam: PRESENT: alert, awake Psychiatric exam: PRESENT: appropriate affect Skin exam: ABSENT: jaundice Results Laboratory Results: 07/01/20 08:10 07/01/20 08:10 07/01/20 07/01/20 07/01/20 01:37 08:10 08:10 WBC 9.6 RBC 3.69 L Hgb 10.7 L Hct 32.4 L MCV 88 MCH 29.0 MCHC 33.0 RDW 13.5 Plt Count 320 Seg Neutrophils % 67.3 Sodium 137.0 Potassium 4.8 Chloride 104 Carbon Dioxide 24 Anion Gap 9 BUN 23 H Creatinine 0.81 Est GFR ( Amer) > 60 Glucose 101 Calcium 9.6 Magnesium 1.7 Urine Color YELLOW Urine Appearance CLOUDY Urine pH 6.0 Ur Specific [place] 1.008 Urine Protein 30 H Urine Glucose (UA) NEGATIVE Urine Ketones NEGATIVE Urine Blood SMALL H Urine Nitrite POSITIVE H Ur Leukocyte Esterase LARGE H Urine WBC (Auto) >182 Urine RBC (Auto) 7 06/14/20 06/14/20 06/22/20 07:25 07:25 01:19 Creatine Kinase 104 Troponin I < 0.012 0.026 06/22/20 16:06 Creatine Kinase Troponin I < 0.012 Impressions: Chest X-Ray 06/14/20 07:29 IMPRESSION: NO ACUTE RADIOGRAPHIC FINDING IN THE CHEST. Head CT 06/14/20 07:31 IMPRESSION: NO ACUTE INTRACRANIAL IMAGING FINDINGS. EVIDENCE OF ACUTE STROKE: NO. Cervical Spine CT 06/14/20 07:32 IMPRESSION: Mild multilevel degenerative change without evidence of acute bony abnormality of the cervical spine. Foot X-Ray 06/14/20 09:07 IMPRESSION: 1. No definite evidence of acute bony abnormality or definitive findings of osteomyelitis. 2. Midfoot collapse with significant degenerative changes suggestive of Charcot joint. Abdomen Ultrasound 06/16/20 00:00 IMPRESSION: Limited study due to overlying bowel gas. No acute findings. The patient is status post cholecystectomy. No ductal dilatation. Lower Extremity MRI 06/22/20 00:00 IMPRESSION: Positive for osteomyelitis. Assessment and Plan - Diagnosis (1) Aspiration into airway Qualifiers: Encounter type: initial encounter Qualified Code(s): T17.908A - Unspecified foreign body in respiratory tract, part unspecified causing other injury, initial encounter Is this a current diagnosis for this admission?: Yes (2) Depression Qualifiers: Depression Type: major depressive disorder Active/Remission status: currently active Major depression episode severity: severe Psychotic features: without psychotic features Is this a current diagnosis for this admission?: Yes (3) Drug overdose, intentional Qualifiers: Encounter type: subsequent encounter Qualified Code(s): T50.902D - Poisoning by unspecified drugs, medicaments and biological substances, intentional self-harm, subsequent encounter Is this a current diagnosis for this admission?: Yes (4) Hypertension Qualifiers: Hypertension type: essential hypertension Qualified Code(s): I10 - Essential (primary) hypertension Is this a current diagnosis for this admission?: Yes (5) Hypoglycemia associated with diabetes Is this a current diagnosis for this admission?: Yes (6) Hypokalemia Is this a current diagnosis for this admission?: Yes (7) Hypomagnesemia Is this a current diagnosis for this admission?: Yes (8) Hypothyroidism Qualifiers: Hypothyroidism type: acquired Qualified Code(s): E03.9 - Hypothyroidism, unspecified Is this a current diagnosis for this admission?: Yes (9) Acute urinary retention Is this a current diagnosis for this admission?: Yes - Plan Summary Summary: 74-year-old female with insulin-dependent diabetes mellitus, hypertension, hyperlipidemia, hypothyroidism, and chronic diabetic foot infection followed by the surgical clinic who was admitted 06/14/2020 with attempted suicide by intentional insulin overdose (Lantus and Humalog) and possibly losartan. The patient initially required Levophed for blood pressure support and D10 maintenance fluids to maintain blood glucose with frequent correction utilizing D50 pushes. She was subsequently transferred to the medical floor and care transitioned to the hospitalist team on 06/18/2020. Attempted suicide (intentional insulin overdose) major depressive disorder without psychotic features Continue suicide precautions. Mental health services consulted. Have initiated medications per their recommendations; Prozac, clonidine tra nsdermal patch, BuSpar and Haldol. Monitor QTc interval. Supportive care. 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 Initially was placed on Ancef/clindamycin/vancomycin for empiric antibiotic therapy. Surgery was consulted, recommended medical management and signed off. Infectious disease consulted. As per ID note she does not seem to have osteomyelitis and should be taken off of IV antibiotics. Continue wound care. Diabetes mellitus type 2 with press tender long goods insulin use: A1c (05/13/2020) 7.0%. Well- controlled. Renal function is WNL. Patient could be managed with oral hypoglycemic given attempted suicide with Lantus. Patient has been managed with sliding scale insulin while inpatient. Has not r eceived any Lantus since being hospitalized. Patient is blood glucose level has been well managed with sliding scale insulin. Patient is started on sitagliptin 50 mg p.o. daily. Glipizide 5 mg p.o. twice daily. Patient is stating that she was on oral hypoglycemics however she does not know why she was stopped. She does not want to be started on Metformin as she did not tolerate it very well. Continue sitagliptin 50 mg p.o. twice daily. Glipizide 5 mg p.o. twice daily. Diabetic diet, Accu-Chek, hypoglycemia protocol. Sliding scale insulin. Essential Hypertension Normotensive. Euvolemic. Current meds. Adjust meds as needed. Outpatient PCP follow-up. Hypothyroidism Thyroid panel is acceptable. Continue home dose levothyroxine 75 mcg daily. Sacral decubitus ulcer, stage II: no sign of infection. Encourage ambulation, frequent positioning, care consult and wound care. Overactive Bladder Acute Urinary Retention - start oxybutinin 5 mg daily and increase by 5 mg every week until 30 mg maximum dose - no evidence of infection, hold off on antibiotics - UCx pending - plan voiding trial tomorrow Dispo: Patient is medically cleared for discharge to a psychiatric facility. She is receiving no intravenous medications and does not need to have a PIV in place for medical reasons, but unfortunately this is hospital policy for all patients in the hospital to have at least one PIV in place at all times. PIV will be removed prior to transfer to a psychiatric facility. COVID-19 test ordered in preparation for placement. - Time Time Spent with patient: 35 or more minutes Anticipated Discharge Disposition: Psych Hospital/Unit Anticipated Discharge Timeframe: within 24 hours
[2020-07-01] MEDS ORDERED: LOSARTAN POTASSIUM 50 MG TABLET PO SCH (22:00)
[2020-07-01] MEDS: ATORVASTATIN CALCIUM 20 MG TABLET PO SCH (22:44)
[2020-07-02] MEDS: LEVOTHYROXINE SODIUM 0.075 MG TABLET PO SCH (06:39)
[2020-07-02] MEDS: SITAGLIPTIN PHOSPHATE 50 MG TABLET PO SCH ×2 (08:57→18:13)
[2020-07-02] MEDS ORDERED: CLONIDINE 0.1 MG/24 HR PATCH.TDWK TD SCH (10:00)
[2020-07-02] MEDS: NYSTATIN CREAM 15 GM TP SCH ×2 (10:40→18:15)
[2020-07-02] MEDS: FOLIC ACID 1 MG TABLET PO SCH (10:45)
[2020-07-02] MEDS: BUSPIRONE HCL 10 MG TABLET PO SCH ×2 (10:45→21:23)
[2020-07-02] MEDS: FAMOTIDINE 20 MG TABLET PO SCH ×2 (10:45→21:23)
[2020-07-02] MEDS: ENOXAPARIN SODIUM INJ 40 MG/0.4 ML DISP.SYRIN SUBCUT SCH (10:47)
[2020-07-02] MEDS: PRASUGREL HCL 10 MG TABLET PO SCH (10:48)
[2020-07-02] MEDS: FLUOXETINE HCL 20 MG/5 ML UDCUP PO SCH (10:48)
[2020-07-02] MEDS: GLIPIZIDE 10 MG TABLET PO SCH ×2 (11:03→18:14)
--- NOTE | 2020-07-02 12:25 | PDOC CONSULTATION ---
Consultation-Blank Consultation: Behavioral Health Consult: Re Evaluation Presenting Problem: FULL Involuntary Commitment for suicide attempt via overdosing on Diabetic medication, leaving a suicide note, and having pamphlet information. IVC was renewed 07/01/2020. Today patient was sitting in the chair in her room with tray table in front of her. Attending Nurse was administering medication. The Nurse identified the Green was removed this morning. Patient reported she used the bathroom today, sat up, and had a bowel movement. Observed walker against wall just under the TV. Patient stated "wait a second let me take this," referencing the medication she was just administered, she took her water and took the by mouth medication. She denied current suicidal ideation which included any thoughts of wanting to hurt/harm/kill self. She stated "I am feeling good." She denied remembering what she was thinking or feeling prior to the overdose. She denied being upset about not being successful. She reported "my friend/roommate/POA tells me she wants me home, she loves me, she wants me home, so does her , and I want to go home." This was patient's response when challenged about previously denying suicidal ideation to this clinician and other medical staff but telling friend/roommate/POA she felt like she was a burden and wished she would have . She denied feeling like a burden. She stated she "never before did anything like this and will never do it again." She was okay with her friend/roommate/POA being in control of medications and administration for safety purposes once she is ready to go home. She also noted friend/roommate/POA would likely be willing to do this. 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 She denied having any outpatient behavioral health services. She continued to give permission to keep friend/roommate/POA informed of plan of care. At 1128 tried calling patient's friend/roommate/POA Elaina ([phone]). No answer. Left voice mail with call back information. At 1228 called Hospital Discharge Planning/Social Work with respect to patient and her waxing/waning of medical issues that has twice now interrupted psychiatric inpatient referral process and acceptance because per facility standards patient is not medically cleared. She noted Nilsa was following patient so she would coordinate with her. She stated rehabilitation could be an option and they can look into sending referrals for Jail Fac[facility] the issue is the Involuntary Commitment Status and that being a liability for accepting facilities. Explained waiting to speak with the friend/roommate/POA to find out what patient had been saying to her in terms of suicidal ideation and thoughts/feelings. She asked if placement had been tried at [facility]/ facility where they are equipped to deal with medical issues. Noted 8 places had been sent patient's referral and would page [facility]. Clinical Presentation: Suicidal Ideation via Overdose of Diabetic medication Suicidal ideation with note and pamphlet from home indicating desire for cremation Uncomplicated Bereavement: 7 years ago, mid May was his birthd ay, mid June is anniversary of his Impression/Plan: Recommendation to maintain Involuntary Commitment. Want to check with friend/roommate/POA regarding what things patient has said to her the past week with respect to being a burden or not/wishing she was or not. Patient previously told medical and behavioral health staff she was not suicidal but said these other things to her friend/roommate/POA. If she has started saying different things to her friend/roommate/POA will rescind Involuntary Commitment so that maybe medical acuity can be focus of attention and treatment. Will try calling friend/roommate/POA again tomorrow. Consulted with Dr. Izquierdo regarding the management and care of patient. Hospitalist in agreement with recommendations. Hospitalist aware of recommendations and spoke to her directly via telephone.
--- NOTE | 2020-07-02 14:26 | CDI QUERY ---
CDI Query CDI Review: We are seeking further clarification of documentation to reflect the severity of illness of your patient. Note in Progress Notes: Sacral decubitus ulcer, stage II Is this a current diagnosis for this admission?: Yes Plan: Stage II decubitus ulcer in the sacral area, no sign of infection. Encourage ambulation, frequent positioning, care consult and wound care. Based on your medical judgement, can you further clarify in the Progress Notes Sacral decubitus ulcer, stage II present on admission Sacral decubitus ulcer, stage II NOT present on admission Unable to determine Other Thank you for your consideration. VANESSA Sanchez RN Clinical Physical Therapy Manager Physician Advisor
--- NOTE | 2020-07-02 17:38 | PDOC PROGRESS REPORT ---
Subjective Date:: 07/02/20 Subjective:: Green removed this morning and she has been voiding. Reason For Visit: SEPSIS,DIABETIC FOOT INFECTION,HYPOGLYCEMIA, Physical Exam Vital Signs: Temp Pulse Resp BP Pulse Ox 98.2 F 65 18 140/54 H 100 07/02/20 12:48 07/02/20 12:48 07/02/20 12:48 07/02/20 12:48 07/02/20 12:48 Intake & Output 07/01/20 07/02/20 07/03/20 06:59 06:59 06:59 Intake Total 1122 Output Total 900 900 900 Balance 222 -900 -900 Weight 47.5 kg 54 kg General appearance: PRESENT: no acute distress Head exam: PRESENT: atraumatic Eye exam: ABSENT: scleral icterus Mouth exam: PRESENT: moist Throat exam: ABSENT: post pharyngeal erythema Neck exam: ABSENT: JVD Respiratory exam: PRESENT: clear to auscultation noreen Cardiovascular exam: PRESENT: RRR GI/Abdominal exam: PRESENT: normal bowel sounds, soft. ABSENT: tenderness Gentrourinary exam: ABSENT: indwelling catheter Extremities exam: ABSENT: pedal edema Musculoskeletal exam: PRESENT: ambulatory Neurological exam: PRESENT: alert, awake, oriented to person, oriented to place, oriented to time, oriented to situation Psychiatric exam: PRESENT: appropriate affect, normal mood. ABSENT: homicidal ideation, suicidal ideation Skin exam: ABSENT: jaundice, rash Results Laboratory Results: 07/01/20 08:10 07/01/20 08:10 06/14/20 06/14/20 06/22/20 07:25 07:25 01:19 Creatine Kinase 104 Troponin I < 0.012 0.026 06/22/20 16:06 Creatine Kinase Troponin I < 0.012 Impressions: Chest X-Ray 06/14/20 07:29 IMPRESSION: NO ACUTE RADIOGRAPHIC FINDING IN THE CHEST. Head CT 06/14/20 07:31 IMPRESSION: NO ACUTE INTRACRANIAL IMAGING FINDINGS. EVIDENCE OF ACUTE STROKE: NO. Cervical Spine CT 06/14/20 07:32 IMPRESSION: Mild multilevel degenerative change without evidence of acute bony abnormality of the cervical spine. Foot X-Ray 06/14/20 09:07 IMPRESSION: 1. No definite evidence of acute bony abnormality or definitive findings of osteomyelitis. 2. Midfoot collapse with significant degenerative changes suggestive of Charcot joint. Abdomen Ultrasound 06/16/20 00:00 IMPRESSION: Limited study due to overlying bowel gas. No acute findings. The patient is status post cholecystectomy. No ductal dilatation. Lower Extremity MRI 06/22/20 00:00 IMPRESSION: Positive for osteomyelitis. Assessment and Plan - Diagnosis (1) Aspiration into airway Qualifiers: Encounter type: initial encounter Qualified Code(s): T17.908A - Unspecified foreign body in respiratory tract, part unspecified causing other injury, initial encounter Is this a current diagnosis for this admission?: Yes (2) Depression Qualifiers: Depression Type: major depressive disorder Active/Remission status: currently active Major depression episode severity: severe Psychotic features: without psychotic features Is this a current diagnosis for this admission?: Yes (3) Drug overdose, intentional Qualifiers: Encounter type: subsequent encounter Qualified Code(s): T50.902D - Poisoning by unspecified drugs, medicaments and biological substances, intentional self-harm, subsequent encounter Is this a current diagnosis for this admission?: Yes (4) Hypertension Qualifiers: Hypertension type: essential hypertension Qualified Code(s): I10 - Essential (primary) hypertension Is this a current diagnosis for this admission?: Yes (5) Hypoglycemia associated with diabetes Is this a current diagnosis for this admission?: Yes (6) Hypokalemia Is this a current diagnosis for this admission?: Yes (7) Hypomagnesemia Is this a current diagnosis for this admission?: Yes (8) Hypothyroidism Qualifiers: Hypothyroidism type: acquired Qualified Code(s): E03.9 - Hypothyroidism, unspecified Is this a current diagnosis for this admission?: Yes (9) Acute urinary retention Is this a current diagnosis for this admission?: Yes - Plan Summary Summary: 74-year-old female with insulin-dependent diabetes mellitus, hypertension, hyperlipidemia, hypothyroidism, and chronic diabetic foot infection followed by the surgical clinic who was admitted 06/14/2020 with attempted suicide by intentional insulin overdose (Lantus and Humalog) and possibly losartan. The patient initially required Levophed for blood pressure support and D10 maintena nce fluids to maintain blood glucose with frequent correction utilizing D50 pushes. She was subsequently transferred to the medical floor and care transitioned to the hospitalist team on 06/18/2020. Attempted suicide (intentional insulin overdose) major depressive disorder without psychotic features Continue suicide precautions. Mental health services consulted. Have initiated medications per Psych recommendations. 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 Initially was placed on Ancef/clindamycin/vancomycin for empiric antibiotic therapy. Surgery was consulted, recommended medical management and signed off. Infectious disease consulted. As per ID, she does not seem to have osteomyelitis and should be taken off of IV antibiotics. Continue wound care. Diabetes mellitus type 2 with exterminator helper insulin use: A1c (05/13/2020) 7.0%. Well- controlled. She can and should be managed with oral hypoglycemic agents only given attempted suicide with insulin. Carb-controlled diet. Essential Hypertension: Normotensive. Continue current medications. Hypothyroidism: Thyroid panel is acceptable. Continue home dose levothyroxine 75 mcg daily. Sacral decubitus ulcer, stage II: no sign of infection. Encourage ambulation, frequent positioning, care consult and wound care. Overactive Bladder: ongoing issue for many years, has been told it is due to pelvic prolapse by multiple specialists - start oxybutinin 5 mg daily and increase by 5 mg every week until 30 mg maximum dose Acute Urinary Retention (07/01/20): resolved - Green catheter removed 07/02 and patient is voiding - no signs/symptoms of infection (has asymptomatic bacteriuria), hold off on antibiotics Sacral decubitus ulcer, stage II: present on admission - no sign of infection - encourage ambulation, OOB TID for meals, frequent repositioning when in bed - daily wound care Dispo: Patient is medically cleared for discharge to a psychiatric facility. She is receiving no intravenous medications and does not need to have a PIV in place for medical reasons, but unfortunately this is hospital policy for all patients in the hospital to have at least one PIV in place at all times. PIV will be removed prior to transfer to a psychiatric facility. COVID-19 test (06/29) negative. - Time Time Spent with patient: 35 or more minutes Anticipated Discharge Disposition: Psych Hospital/Unit Anticipated Discharge Timeframe: within 24 hours
[2020-07-02] MEDS: CLONIDINE 0.1 MG/24 HR PATCH.TDWK TD SCH (19:01)
[2020-07-02] MEDS: ATORVASTATIN CALCIUM 20 MG TABLET PO SCH (21:23)
[2020-07-02] MEDS ORDERED: LOSARTAN POTASSIUM 25 MG TABLET PO SCH (22:00)
[2020-07-03] MEDS: LEVOTHYROXINE SODIUM 0.075 MG TABLET PO SCH (07:13)
[2020-07-03] MEDS: SITAGLIPTIN PHOSPHATE 50 MG TABLET PO SCH ×2 (09:51→16:33)
[2020-07-03] MEDS: GLIPIZIDE 10 MG TABLET PO SCH ×2 (09:51→16:33)
[2020-07-03] MEDS: LOSARTAN POTASSIUM 25 MG TABLET PO SCH (10:00)
[2020-07-03] MEDS: ENOXAPARIN SODIUM INJ 40 MG/0.4 ML DISP.SYRIN SUBCUT SCH (11:48)
[2020-07-03] MEDS: FOLIC ACID 1 MG TABLET PO SCH (11:48)
[2020-07-03] MEDS: PRASUGREL HCL 10 MG TABLET PO SCH (11:49)
[2020-07-03] MEDS: FAMOTIDINE 20 MG TABLET PO SCH ×2 (11:49→22:09)
[2020-07-03] MEDS: BUSPIRONE HCL 10 MG TABLET PO SCH ×2 (11:49→22:09)
--- NOTE | 2020-07-03 13:50 | PDOC PROGRESS REPORT ---
Subjective Date:: 07/03/20 Subjective:: The patient is a 74-year-old female with a past medical history significant for Insulin-dependent diabetes mellitus, hypertension, hyperlipidemia, hypothyroidism, and chronic foot wound followed by the surgical clinic who was admitted 06/14/2020 with presumed sepsis with associated hypotension, hypothermia and hypoglycemia but subsequently found to have attempted suicide by intentional insulin overdose (Lantus and Humalog) and possibly losartan. The patient initially required Levophed for blood pressure support; this has been successfully weaned off. She also required D10 maintenance fluids to maintain blood glucose with frequent correction utilizing D50 pushes. Now with stable glucose. She has been downgraded to the medical floor and care transitioned to the hospitalist team. Now medically cleared for discharge. Awaiting disposition decision per mental health services. Patient was seen on afternoon rounds. She is found sitting up to the recliner, comfortably, on room air. She is A&O x4. She reports she is feeling well today. Reports difficulty putting on her shoes; would like to meet with OT. Denies all concerns; specifically no fever, chills, chest pain, palpitations, dyspnea, cough, abdominal pain, nausea vomiting. She has no questions at this time. No concerns per nursing Reason For Visit: SEPSIS,DIABETIC FOOT INFECTION,HYPOGLYCEMIA, Physical Exam Vital Signs: Temp Pulse Resp BP Pulse Ox 98.0 F 68 18 132/56 H 100 07/03/20 11:14 07/03/20 11:14 07/03/20 11:14 07/03/20 11:14 07/03/20 11:14 Intake & Output 07/02/20 07/03/20 07/04/20 06:59 06:59 06:59 Output Total 900 2019 Weight 54 kg 54 kg 54 kg General appearance: PRESENT: no acute distress, cooperative, thin, well- developed, well-nourished Head exam: PRESENT: atraumatic, normocephalic Eye exam: PRESENT: conjunctiva pink, EOMI, PERRLA. ABSENT: scleral icterus Mouth exam: PRESENT: moist, tongue midline Respiratory exam: PRESENT: clear to auscultation noreen, symmetrical, unlabored. ABSENT: rales, rhonchi, wheezes Cardiovascular exam: PRESENT: RRR, +S1, +S2. ABSENT: diastolic murmur, rubs, systolic murmur Pulses: PRESENT: normal dorsalis pedis pul Vascular exam: PRESENT: normal capillary refill GI/Abdominal exam: PRESENT: normal bowel sounds, soft. ABSENT: distended, guarding, mass, organolmegaly, rebound, tenderness Rectal exam: PRESENT: deferred Extremities exam: PRESENT: full ROM. ABSENT: calf tenderness, clubbing, pedal edema Neurological exam: PRESENT: alert, awake, oriented to person, oriented to place, oriented to time, oriented to situation, CN II-XII grossly intact. ABSENT: motor sensory deficit Psychiatric exam: PRESENT: appropriate affect, normal mood. ABSENT: homicidal ideation, suicidal ideation Skin exam: PRESENT: dry, intact, warm. ABSENT: cyanosis, rash Results Laboratory Results: 07/01/20 08:10 07/01/20 08:10 07/01/20 01:37 Catheterized Urine Urine Culture - Final Serratia Marcescens 06/14/20 06/14/20 06/22/20 07:25 07:25 01:19 Creatine Kinase 104 Troponin I < 0.012 0.026 06/22/20 16:06 Creatine Kinase Troponin I < 0.012 Impressions: Chest X-Ray 06/14/20 07:29 IMPRESSION: NO ACUTE RADIOGRAPHIC FINDING IN THE CHEST. Head CT 06/14/20 07:31 IMPRESSION: NO ACUTE INTRACRANIAL IMAGING FINDINGS. EVIDENCE OF ACUTE STROKE: NO. Cervical Spine CT 06/14/20 07:32 IMPRESSION: Mild multilevel degenerative change without evidence of acute bony abnormality of the cervical spine. Foot X-Ray 06/14/20 09:07 IMPRESSION: 1. No definite evidence of acute bony abnormality or definitive findings of osteomyelitis. 2. Midfoot collapse with significant degenerative changes suggestive of Charcot joint. Abdomen Ultrasound 06/16/20 00:00 IMPRESSION: Limited study due to overlying bowel gas. No acute findings. The patient is status post cholecystectomy. No ductal dilatation. Lower Extremity MRI 06/22/20 00:00 IMPRESSION: Positive for osteomyelitis. Assessment and Plan - Diagnosis (1) Attempted suicide Is this a current diagnosis for this admission?: Yes Plan: Continue suicide precautions. Mental health services consulted. Have initiated medications per their recommendations; Prozac, clonidine transdermal patch, BuSpar and Haldol. Monitor QTc interval. Supportive care. (2) Drug overdose, intentional Qualifiers: Encounter type: subsequent encounter Qualified Code(s): T50.902D - Poisoning by unspecified drugs, medicaments and biological substances, intentional self-harm, subsequent encounter Is this a current diagnosis for this admission?: Yes Plan: Intentional insulin overdose. Management as outlined elsewhere. (3) Depression Qualifiers: Depression Type: major depressive disorder Active/Remission status: currently active Major depression episode severity: severe Psychotic features: without psychotic features Is this a current diagnosis for this admission?: Yes Plan: Mental health services consulted. Medication recommendations reviewed and implemented. (4) Aspiration into airway Qualifiers: Encounter type: initial encounter Qualified Code(s): T17.908A - Unspecified foreign body in respiratory tract, part unspecified causing other injury, initial encounter Is this a current diagnosis for this admission?: Yes Plan: Resolved. Completed antibiotic course. Now maintaining oxygen saturations on room air. (5) Diabetes Qualifiers: Diabetes mellitus tank terminal gauger insulin use: with tank terminal gauger use Diabetes mellitus complication status: with skin complications Diabetes mellitus complication detail: with foot ulcer Is this a current diagnosis for this admission?: Yes Plan: A1c (05/13/2020) 7.0%. Well-controlled. Renal function is WNL. Patient could be managed with oral hypoglycemic given attempted suicide with Lantus. Patient is started on sitagliptin 50 mg p.o. daily. Glipizide 5 mg p.o. twice daily. She does not want to be started on Metformin as she did not tolerate it very well. Hypoglycemia protocol. (6) Hypothyroidism Qualifiers: Hypothyroidism type: acquired Qualified Code(s): E03.9 - Hypothyroidism, unspecified Is this a current diagnosis for this admission?: Yes Plan: Thyroid panel is acceptable. Continue home dose levothyroxine 75 mcg daily. (7) Diabetic foot infection Is this a current diagnosis for this admission?: Yes Plan: Followed by outpatient wound care clinic. Initially was placed on Ancef/clindamycin/vancomycin for empiric antibiotic therapy. Surgery was consulted, recommended medical management and signed off. Infectious disease consulted. As per ID note she does not seem to have osteomyelitis and should be taken off of IV antibiotics. Continue wound care. (8) Hypertension Qualifiers: Hypertension type: essential hypertension Qualified Code(s): I10 - Essential (primary) hypertension Is this a current diagnosis for this admission?: Yes Plan: Normotensive. Euvolemic. Current meds. Adjust meds as needed. Outpatient PCP follow-up. (9) Hypomagnesemia Is this a current diagnosis for this admission?: Yes Plan: Replete. (10) Hypokalemia Is this a current diagnosis for this admission?: Yes Plan: Replete. (11) Sepsis associated hypotension Is this a current diagnosis for this admission?: Yes Plan: Resolved. (12) Hypothermia Qualifiers: Encounter type: subsequent encounter Qualified Code(s): T68.XXXD - Hypothermia, subsequent encounter Is this a current diagnosis for this admission?: Yes Plan: Resolved. Secondary to sepsis, hypotension, insulin overdose. (13) Hypoglycemia associated with diabetes Is this a current diagnosis for this admission?: Yes Plan: Resolved. Hypoglycemia protocol. - Plan Summary Summary: Patient is medically cleared for discharge to a psychiatric facility. She is re ceiving no intravenous medications and does not need to have a PIV in place for medical reasons, but unfortunately this is hospital policy for all patients in the hospital to have at least one PIV in place at all times. PIV will be removed prior to transfer to a psychiatric facility. COVID-19 test ordered in preparation for placement. - Time Time Spent with patient: 15-24 minutes Medications reviewed and adjusted accordingly: Yes Anticipated Discharge Disposition: Psych Hospital/Unit - Disposition per Mental Health team Anticipated Discharge Timeframe: when bed available
--- NOTE | 2020-07-03 18:09 | PDOC CONSULTATION ---
Consultation-Blank Consultation: Behavioral Health Consult: Re Evaluation Presenting Problem: FULL Involuntary Commitment for suicide attempt via overdosing on Diabetic medication, leaving a suicide note, and having pamphlet information. IVC was renewed 07/01/2020. From [id number] obtained collateral from friend/roommate/POA Elaina ). She reported she was visiting patient yesterday. She stated patient said "I am a burden to you, I just wished I ." When she asked patient why she wasn't eating or drinking patient said "why should I eat, what is there to live for?" She said patient told her "I know I'm going to a Mc[facility], a hell hole," and friend/roommate/POA noted patient went through that with her own fath er and him losing his feet to diabetes. She further stated patient is depressed and upset about her foot (diabetic ulcer so likely losing foot, toes on other foot already gone), bladder not working, and blood pressure being off. She reported patient commented "I can't believe taking the Insulin didn't work, I ended up taking a half of bottle of Advil, blood pressure medication, and another medication." Friend/roommate/POA said patient did not tell her about the pills until much later. She stated patient did well at home getting around with the walker and now is shaky, requiring 2 medical staff for assistance. She reported patient often says she "wants to join her ." is , 06/29/2020 made 8 years since he's been gone. She stated even if patient does not go to inpatient hospitalization for behavioral health short term rehabilitation may be helpful given mobility issues and other medical issues (bladder issues) that were not present prior to the overdose. At 1823 spoke to Hospitalist via telephone about plan of care. She noted patient is medically cleared, Green was removed yesterday, and there is documentation from yesterday and today about the need for the IV. Clinical Presentation: Suicidal Ideation via Overdose of Diabetic medication Suicidal ideation with note and pamphlet from home indicating desire for cremation Uncomplicated Bereavement: 7 years ago, mid May was his birthday, mid June is anniversary of his Impression/Plan: Recommendation to maintain Involuntary Commitment. Obtained collateral from friend/roommate/POA about what patient has been saying to her the last 5-7 days which has not changed. Patient keeps telling behavioral health and medical staff she is not suicidal and wants to go home but tells friend/roommate/POA she is a burden and wants to be with . Reached out to [facility] for possible placement. If they deny not sure any psychiatric facility will take patient as she has been denied by 8 other geriatric facilities. Consulted with Dr. Izquierdo regarding the management and care of patient. Hospitalist aware of recommendations.
[2020-07-03] MEDS: ATORVASTATIN CALCIUM 20 MG TABLET PO SCH (22:09)
[2020-07-04] MEDS: LEVOTHYROXINE SODIUM 0.075 MG TABLET PO SCH (05:44)
[2020-07-04] MEDS: SITAGLIPTIN PHOSPHATE 50 MG TABLET PO SCH ×2 (08:16→16:16)
[2020-07-04] MEDS: GLIPIZIDE 10 MG TABLET PO SCH ×2 (08:16→16:15)
--- NOTE | 2020-07-04 10:45 | PDOC CONSULTATION ---
Consultation-Blank Consultation: Behavioral Health Consult: Re Evaluation Presenting Problem: FULL Involuntary Commitment for suicide attempt via overdosing on Diabetic medication, leaving a suicide note, and having pamphlet information. IVC was renewed 07/01/2020. Placement efforts were related to [facility] and [facility] today. Coordinated with Video Effects Editor Rn Triage Yun at 1459. Check in with patient from [id number]. Hospitalist was present initially. She asked patient if she could share with the Behavioral Health Team about what they had been talking about. Patient said yes. Hospitalist stated "at this time patient is not having any passive suicidal thoughts , but worries about having thoughts again, not trusting herself, and what she may do." She denied current thoughts of wanting to hurt/harm/kill self and admitted "it comes and goes." She acknowledged "my was my whole life, we lived for each other." Asked patient what her in [facility] as her guardian marty and if he would be okay with her overdosing in order to be with him. She said "no," then smiled and frowned. Reflected back to her how that thought brings about both happiness and sadness which she agreed with. Encouraged her to keep being honest about how she is feeling so her symptoms can be best addressed. She agreed to do so. She noted how the relationship between her, her friend/roommate/STEPHAN, and STEPHAN's is very good. She mentioned STEPHAN has her own medical issues to include: had a couple strokes, spleen removed, and others. Clinical Presentation: Suicidal Ideation via Overdose of Diabetic medication Suicidal ideation with note and pamphlet from home indicating desire for cremation Uncomplicated Bereavement: 7 years ago, mid May was his birthday, mid June is anniversary of his Medication recommendations made by the psychiatric medication provider Dr. Viky ALVARADO., includes: Increase Prozac to 20MG daily for depression Continue Buspar 5MG twice a day for anxiety/calming effect/depression/sleep Must be mindful both these medication effect Serotonin and don't want to overload patient Impression/Plan: Recommendation to maintain FULL Involuntary Commitment. [facility] denied patient for medical acuity. [facility] noted a year wait list for Geriatric patients, not able to address all medical needs, and no current bed availability. This makes 10 facilities who have denied patient due to medical acuity. Coordinated with Video Effects Editor Rn Triage. Consulted with Dr. Izquierdo regarding the management and care of patient. Hospitalist aware of recommendations. After speaking with Dr. Izquierdo she stated she would contact Discharge Planning Jerri Sweeney to request/discuss need for Interdisciplinary Team Meeting to discuss plan of care. Part of that would address: - is there still an ongoing concern for suicidal ideation? - if so what level of risk? - then recommendations for safety measures if sent to sort term rehabilitation? - such as what is her capability in terms of mobility? would she have access to medications?
[2020-07-04] MEDS: BUSPIRONE HCL 10 MG TABLET PO SCH ×2 (10:55→22:08)
[2020-07-04] MEDS: FOLIC ACID 1 MG TABLET PO SCH (10:55)
[2020-07-04] MEDS: ENOXAPARIN SODIUM INJ 40 MG/0.4 ML DISP.SYRIN SUBCUT SCH (10:55)
[2020-07-04] MEDS: FAMOTIDINE 20 MG TABLET PO SCH ×2 (10:55→22:08)
[2020-07-04] MEDS: FLUOXETINE HCL 20 MG/5 ML UDCUP PO SCH ×2 (10:55→10:57)
[2020-07-04] MEDS: PRASUGREL HCL 10 MG TABLET PO SCH (10:56)
[2020-07-04] MEDS: LOSARTAN POTASSIUM 25 MG TABLET PO SCH (10:58)
--- NOTE | 2020-07-04 15:11 | PDOC PROGRESS REPORT ---
Subjective Date:: 07/04/20 Subjective:: The patient is a 74-year-old female with a past medical history significant for Insulin-dependent diabetes mellitus, hypertension, hyperlipidemia, hypothyroidism, and chronic foot wound followed by the surgical clinic who was admitted 06/14/2020 with presumed sepsis with associated hypotension, hypothermia and hypoglycemia but subsequently found to have attempted suicide by intentional insulin overdose (Lantus and Humalog) and possibly losartan. The patient initially required Levophed for blood pressure support; this has been successfully weaned off. She also required D10 maintenance fluids to maintain blood glucose with frequent correction utilizing D50 pushes. Now with stable glucose. She has been downgraded to the medical floor and care transitioned to the hospitalist team. Now medically cleared for discharge. Awaiting disposition decision per mental health services. Patient was seen on afternoon rounds. She is found sitting up to the recliner, comfortably, on room air. She is A&O x4. She reports she is feeling well today. However, she does confide in me continued, overwhelming, depression. She states that she often finds that she is "worried I might do something again, like I don't trust myself. I'm not safe yet." She discusses missing her who 6 years ago. They were 45 years and anniversary was last weekend. She asks if her antidepressants can be increased. She tells me she misses her friend (who she lives with) greatly, and looks forward to going home, but does not yet feel she is safe to do so. We spoke for ~40 minutes; validated her feelings. Encouraged her to continue talking with us to help her process all that has happened. Denies fever, chills, chest pain, palpitations, dyspnea, cough, abdominal pain, nausea vomiting. Confirms she is walking ~30 feet w/ FWW. No concerns per nursing Reason For Visit: SEPSIS,DIABETIC FOOT INFECTION,HYPOGLYCEMIA, Physical Exam Vital Signs: Temp Pulse Resp BP Pulse Ox 98.1 F 64 16 128/54 H 96 07/04/20 10:57 07/04/20 10:57 07/04/20 10:57 07/04/20 10:57 07/04/20 10:57 Intake & Output 07/03/20 07/04/20 07/05/20 06:59 06:59 06:59 Intake Total 240 Output Total 2020 900 Balance -2019 Weight 54 kg 58.4 kg General appearance: PRESENT: no acute distress, cooperative, thin, well- developed, well-nourished Head exam: PRESENT: atraumatic, normocephalic Eye exam: PRESENT: conjunctiva pink, EOMI, PERRLA. ABSENT: scleral icterus Mouth exam: PRESENT: moist, tongue midline Respiratory exam: PRESENT: clear to auscultation noreen, symmetrical, unlabored, other - room air. ABSENT: rales, rhonchi, wheezes Cardiovascular exam: PRESENT: RRR, +S1, +S2. ABSENT: diastolic murmur, rubs, systolic murmur Vascular exam: PRESENT: normal capillary refill Extremities exam: PRESENT: full ROM. ABSENT: calf tenderness, clubbing, pedal edema Musculoskeletal exam: PRESENT: ambulatory - w/ FWW Neurological exam: PRESENT: alert, awake, oriented to person, oriented to place, oriented to time, oriented to situation, CN II-XII grossly intact. ABSENT: motor sensory deficit Psychiatric exam: PRESENT: appropriate affect, normal mood. ABSENT: homicidal ideation, suicidal ideation Skin exam: PRESENT: dry, intact, warm. ABSENT: cyanosis, rash Results Laboratory Results: 07/01/20 08:10 07/01/20 08:10 06/14/20 06/14/20 06/22/20 07:25 07:25 01:19 Creatine Kinase 104 Troponin I < 0.012 0.026 06/22/20 16:06 Creatine Kinase Troponin I < 0.012 Impressions: Chest X-Ray 06/14/20 07:29 IMPRESSION: NO ACUTE RADIOGRAPHIC FINDING IN THE CHEST. Head CT 06/14/20 07:31 IMPRESSION: NO ACUTE INTRACRANIAL IMAGING FINDINGS. EVIDENCE OF ACUTE STROKE: NO. Cervical Spine CT 06/14/20 07:32 IMPRESSION: Mild multilevel degenerative change without evidence of acute bony abnormality of the cervical spine. Foot X-Ray 06/14/20 09:07 IMPRESSION: 1. No definite evidence of acute bony abnormality or definitive findings of osteomyelitis. 2. Midfoot collapse with significant degenerative changes suggestive of Charcot joint. Abdomen Ultrasound 06/16/20 00:00 IMPRESSION: Limited study due to overlying bowel gas. No acute findings. The patient is status post cholecystectomy. No ductal dilatation. Lower Extremity MRI 06/22/20 00:00 IMPRESSION: Positive for osteomyelitis. Assessment and Plan - Diagnosis (1) Attempted suicide Is this a current diagnosis for this admission?: Yes Plan: Continue suicide precautions. Mental health services consulted. Have initiated medications per their recommendations; Prozac, clonidine transdermal patch, BuSpar and Haldol. Monitor QTc interval. Supportive care. (2) Drug overdose, intentional Qualifiers: Encounter type: subsequent encounter Qualified Code(s): T50.902D - Poisoning by unspecified drugs, medicaments and biological substances, intentional self-harm, subsequent encounter Is this a current diagnosis for this admission?: Yes Plan: Intentional insulin overdose. Management as outlined elsewhere. (3) Depression Qualifiers: Depression Type: major depressive disorder Active/Remission status: currently active Major depression episode severity: severe Psychotic features: without psychotic features Is this a current diagnosis for this admission?: Yes Plan: Mental health services consulted. Medication recommendations reviewed and implemented. (4) Aspiration into airway Qualifiers: Encounter type: initial encounter Qualified Code(s): T17.908A - Unspecified foreign body in respiratory tract, part unspecified causing other injury, initial encounter Is this a current diagnosis for this admission?: Yes Plan: Resolved. Completed antibiotic course. Now maintaining oxygen saturations on room air. (5) Diabetes Qualifiers: Diabetes mellitus moth exterminator insulin use: with moth exterminator use Diabetes mellitus complication status: with skin complications Diabetes mellitus complication detail: with foot ulcer Is this a current diagnosis for this admission?: Yes Plan: A1c (05/13/2020) 7.0%. Well-controlled. Renal function is WNL. Patient could be managed with oral hypoglycemic given attempted suicide with Lantus. Patient is started on sitagliptin 50 mg p.o. daily. Glipizide 5 mg p.o. twice daily. She does not want to be started on Metformin as she did not tolerate it very well. Hypoglycemia protocol. (6) Hypothyroidism Qualifiers: Hypothyroidism type: acquired Qualified Code(s): E03.9 - Hypothyroidism, unspecified Is this a current diagnosis for this admission?: Yes Plan: Thyroid panel is acceptable. Continue home dose levothyroxine 75 mcg daily. (7) Diabetic foot infection Is this a current diagnosis for this admission?: Yes Plan: Followed by outpatient wound care clinic. Initially was placed on Ancef/clindamycin/vancomycin for empiric antibiotic therapy. Surgery was consulted, recommended medical management and signed off. Infectious disease consulted. As per ID note she does not seem to have osteomyelitis and should be taken off of IV antibiotics. Continue wound care. (8) Hypertension Qualifiers: Hypertension type: essential hypertension Qualified Code(s): I10 - Essential (primary) hypertension Is this a current diagnosis for this admission?: Yes Plan: Normotensive. Euvolemic. Current meds. Adjust meds as needed. Outpatient PCP follow-up. (9) Hypomagnesemia Is this a current diagnosis for this admission?: Yes Plan: Replete. (10) Hypokalemia Is this a current diagnosis for this admission?: Yes Plan: Replete. (11) Sepsis associated hypotension Is this a current diagnosis for this admission?: Yes Plan: Resolved. (12) Hypothermia Qualifiers: Encounter type: subsequent encounter Qualified Code(s): T68.XXXD - Hypothermia, subsequent encounter Is this a current diagnosis for this admission?: Yes Plan: Resolved. Secondary to sepsis, hypotension, insulin overdose. (13) Hypoglycemia associated with diabetes Is this a current diagnosis for this admission?: Yes Plan: Resolved. Hypoglycemia protocol. - Plan Summary Summary: Patient is medically cleared for discharge to a psychiatric facility. She is receiving no intravenous medications and does not need to have a PIV in place for medical reasons, but unfortunately this is hospital policy for all patients in the hospital to have at least one PIV in place at all times. PIV will be removed prior to transfer to a psychiatric facility. COVID-19 test ordered in pr eparation for placement. - Time Time Spent with patient: 15-24 minutes Medications reviewed and adjusted accordingly: Yes Anticipated Discharge Disposition: Psych Hospital/Unit Anticipated Discharge Timeframe: when bed available
[2020-07-04] MEDS: ATORVASTATIN CALCIUM 20 MG TABLET PO SCH (22:08)
[2020-07-05] MEDS: LEVOTHYROXINE SODIUM 0.075 MG TABLET PO SCH (06:57)
[2020-07-05] MEDS: SITAGLIPTIN PHOSPHATE 50 MG TABLET PO SCH ×2 (07:54→18:43)
[2020-07-05] MEDS: GLIPIZIDE 10 MG TABLET PO SCH ×2 (08:00→18:43)
[2020-07-05] MEDS: PRASUGREL HCL 10 MG TABLET PO SCH (11:19)
[2020-07-05] MEDS: LOSARTAN POTASSIUM 25 MG TABLET PO SCH (11:19)
[2020-07-05] MEDS: FAMOTIDINE 20 MG TABLET PO SCH ×2 (11:19→22:32)
[2020-07-05] MEDS: FOLIC ACID 1 MG TABLET PO SCH (11:19)
[2020-07-05] MEDS: ENOXAPARIN SODIUM INJ 40 MG/0.4 ML DISP.SYRIN SUBCUT SCH (11:20)
[2020-07-05] MEDS: BUSPIRONE HCL 10 MG TABLET PO SCH ×2 (11:32→22:32)
[2020-07-05] MEDS: FLUOXETINE HCL 20 MG/5 ML UDCUP PO SCH (11:39)
--- NOTE | 2020-07-05 14:11 | PDOC PROGRESS REPORT ---
Subjective Date:: 07/05/20 Subjective:: The patient is a 74-year-old female with a past medical history significant for Insulin-dependent diabetes mellitus, hypertension, hyperlipidemia, hypothyroidism, and chronic foot wound followed by the surgical clinic who was admitted 06/14/2020 with presumed sepsis with associated hypotension, hypothermia and hypoglycemia but subsequently found to have attempted suicide by intentional insulin overdose (Lantus and Humalog) and possibly losartan. The patient initially required Levophed for blood pressure support; this has been successfully weaned off. She also required D10 maintenance fluids to maintain blood glucose with frequent correction utilizing D50 pushes. Now with stable glucose. She has been downgraded to the medical floor and care transitioned to the hospitalist team. Now medically cleared for discharge. Awaiting disposition decision per mental health services. Patient was seen on afternoon rounds. She is found sitting up to the recliner, comfortably, on room air. She is A&O x4. She reports she is feeling well today. She does talk about feeling depressed; continues to be sad about her chronic health conditions and her husbands prior passing. She admits to regret about her suicide attempt, but continues to express concern about her depression and worries that she may attempt again in the future (doesn't trust herself). She states that she made a poor decision and has a lot of guilt about what she has put her friends through. We discussed that she made a poor decision, but that forgiving herself is important. I encouraged her to consider "all the good she has put into the world" and that the good outweighs the negatives. She is encouraged to consider that her and friends love/d her deeply and that they would only love a good person. I asked her to consider that she can trust them while she learns to re-trust herself. We spoke for ~40 minutes; validated her feelings. Encouraged her to continue talking with us to help her process all that has happened. Denies fever, chills, chest pain, palpitations, dyspnea, cough, abdominal pain, nausea vomiting. Confirms she is walking ~30 feet w/ FWW. No concerns per nursing Reason For Visit: SEPSIS,DIABETIC FOOT INFECTION,HYPOGLYCEMIA, Physical Exam Vital Signs: Temp Pulse Resp BP Pulse Ox 97.8 F 62 16 136/51 H 100 07/05/20 11:15 07/05/20 11:15 07/05/20 11:15 07/05/20 11:15 07/05/20 11:15 Intake & Output 07/04/20 07/05/20 07/06/20 06:59 06:59 06:59 Intake Total 240 480 200 Output Total 900 1000 750 Balance -660 -520 -550 Weight 58.4 kg 58 kg General appearance: PRESENT: no acute distress, cooperative, thin, well- developed, well-nourished Head exam: PRESENT: atraumatic, normocephalic Eye exam: PRESENT: conjunctiva pink, EOMI, PERRLA. ABSENT: scleral icterus Mouth exam: PRESENT: moist, tongue midline Teeth exam: PRESENT: poor dentation Respiratory exam: PRESENT: clear to auscultation noreen, symmetrical, unlabored. ABSENT: rales, rhonchi, wheezes Cardiovascular exam: PRESENT: RRR, +S1, +S2. ABSENT: diastolic murmur, rubs, systolic murmur Pulses: PRESENT: normal dorsalis pedis pul Vascular exam: PRESENT: normal capillary refill Extremities exam: PRESENT: full ROM. ABSENT: calf tenderness, clubbing, pedal edema Musculoskeletal exam: PRESENT: ambulatory - w/ FWW Neurological exam: PRESENT: alert, awake, oriented to person, oriented to place, oriented to time, oriented to situation, CN II-XII grossly intact. ABSENT: motor sensory deficit Psychiatric exam: PRESENT: appropriate affect, normal mood. ABSENT: homicidal ideation, suicidal ideation Skin exam: PRESENT: dry, warm. ABSENT: cyanosis, rash Results Laboratory Results: 07/01/20 08:10 07/01/20 08:10 06/14/20 06/14/20 06/22/20 07:25 07:25 01:19 Creatine Kinase 104 Troponin I < 0.012 0.026 06/22/20 16:06 Creatine Kinase Troponin I < 0.012 Impressions: Chest X-Ray 06/14/20 07:29 IMPRESSION: NO ACUTE RADIOGRAPHIC FINDING IN THE CHEST. Head CT 06/14/20 07:31 IMPRESSION: NO ACUTE INTRACRANIAL IMAGING FINDINGS. EVIDENCE OF ACUTE STROKE: NO. Cervical Spine CT 06/14/20 07:32 IMPRESSION: Mild multilevel degenerative change without evidence of acute bony abnormality of the cervical spine. Foot X-Ray 06/14/20 09:07 IMPRESSION: 1. No definite evidence of acute bony abnormality or definitive findings of osteomyelitis. 2. Midfoot collapse with significant degenerative changes suggestive of Charcot joint. Abdomen Ultrasound 06/16/20 00:00 IMPRESSION: Limited study due to overlying bowel gas. No acute findings. The patient is status post cholecystectomy. No ductal dilatation. Lower Extremity MRI 06/22/20 00:00 IMPRESSION: Positive for osteomyelitis. Assessment and Plan - Diagnosis (1) Attempted suicide Is this a current diagnosis for this admission?: Yes Plan: Continue suicide precautions. Mental health services consulted. Have initiated medications per their recommendations; Prozac, clonidine transdermal patch, BuSpar and Haldol. Monitor QTc interval. Supportive care. (2) Drug overdose, intentional Qualifiers: Encounter type: subsequent encounter Qualified Code(s): T50.902D - Poisoning by unspecified drugs, medicaments and biological substances, intentional self-harm, subsequent encounter Is this a current diagnosis for this admission?: Yes Plan: Intentional insulin overdose. Management as outlined elsewhere. (3) Depression Qualifiers: Depression Type: major depressive disorder Active/Remission status: currently active Major depression episode severity: severe Psychotic features: without psychotic features Is this a current diagnosis for this admission?: Yes Plan: Mental health services consulted. Medication recommendations reviewed and implemented. (4) Aspiration into airway Qualifiers: Encounter type: initial encounter Qualified Code(s): T17.908A - Unspecified foreign body in respiratory tract, part unspecified causing other injury, initial encounter Is this a current diagnosis for this admission?: Yes Plan: Resolved. Completed antibiotic course. Now maintaining oxygen saturations on room air. (5) Diabetes Qualifiers: Diabetes mellitus terminal computer operator insulin use: with intermediate use Diabetes mellitus complication status: with skin complications Diabetes mellitus c omplication detail: with foot ulcer Is this a current diagnosis for this admission?: Yes Plan: A1c (05/13/2020) 7.0%. Well-controlled. Renal function is WNL. Patient could be managed with oral hypoglycemic given attempted suicide with Lantus. Patient is started on sitagliptin 50 mg p.o. daily. Glipizide 5 mg p.o. twice daily. She does not want to be started on Metformin as she did not tolerate it very well. Hypoglycemia protocol. (6) Hypothyroidism Qualifiers: Hypothyroidism type: acquired Qualified Code(s): E03.9 - Hypothyroidism, unspecified Is this a current diagnosis for this admission?: Yes Plan: Thyroid panel is acceptable. Continue home dose levothyroxine 75 mcg daily. (7) Diabetic foot infection Is this a current diagnosis for this admission?: Yes Plan: Followed by outpatient wound care clinic. Initially was placed on Ancef/clindamycin/vancomycin for empiric antibiotic therapy. Surgery was consulted, recommended medical management and signed off. Infectious disease consulted. As per ID note she does not seem to have osteomyelitis and should be taken off of IV antibiotics. Continue wound care. (8) Hypertension Qualifiers: Hypertension type: essential hypertension Qualified Code(s): I10 - Essential (primary) hypertension Is this a current diagnosis for this admission?: Yes Plan: Normotensive. Euvolemic. Current meds. Adjust meds as needed. Outpatient PCP follow-up. (9) Hypomagnesemia Is this a current diagnosis for this admission?: Yes Plan: Replete. (10) Hypokalemia Is this a current diagnosis for this admission?: Yes Plan: Replete. (11) Sepsis associated hypotension Is this a current diagnosis for this admission?: Yes Plan: Resolved. (12) Hypothermia Qualifiers: Encounter type: subsequent encounter Qualified Code(s): T68.XXXD - Hypothermia, subsequent encounter Is this a current diagnosis for this admission?: Yes Plan: Resolved. Secondary to sepsis, hypotension, insulin overdose. (13) Hypoglycemia associated with diabetes Is this a current diagnosis for this admission?: Yes Plan: Resolved. Hypoglycemia protocol. - Plan Summary Summary: Patient is medically cleared for discharge to a psychiatric facility. She is receiving no intravenous medications and does not need to have a PIV in place for medical reasons, but unfortunately this is hospital policy for all patients in the hospital to have at least one PIV in place at all times. PIV will be removed prior to transfer to a psychiatric facility. COVID-19 test ordered in preparation for placement. - Time Medications reviewed and adjusted accordingly: Yes Anticipated Discharge Disposition: Psych Hospital/Unit - disposition per mental health Anticipated Discharge Timeframe: unclear
[2020-07-05] MEDS: ATORVASTATIN CALCIUM 20 MG TABLET PO SCH (22:32)
[2020-07-06] MEDS: LEVOTHYROXINE SODIUM 0.075 MG TABLET PO SCH (05:16)
[2020-07-06] MEDS: SITAGLIPTIN PHOSPHATE 50 MG TABLET PO SCH ×2 (08:25→17:57)
[2020-07-06] MEDS: GLIPIZIDE 10 MG TABLET PO SCH ×2 (08:25→17:57)
[2020-07-06] MEDS: FLUOXETINE HCL 20 MG/5 ML UDCUP PO SCH (09:38)
[2020-07-06] MEDS: PRASUGREL HCL 10 MG TABLET PO SCH (09:38)
[2020-07-06] MEDS: BUSPIRONE HCL 10 MG TABLET PO SCH ×2 (09:38→21:41)
[2020-07-06] MEDS: LOSARTAN POTASSIUM 25 MG TABLET PO SCH (09:38)
[2020-07-06] MEDS: FOLIC ACID 1 MG TABLET PO SCH (09:38)
[2020-07-06] MEDS: FAMOTIDINE 20 MG TABLET PO SCH ×2 (09:38→21:41)
[2020-07-06] MEDS: ENOXAPARIN SODIUM INJ 40 MG/0.4 ML DISP.SYRIN SUBCUT SCH (09:38)
--- NOTE | 2020-07-06 11:29 | PDOC PROGRESS REPORT ---
Subjective Date:: 07/06/20 Subjective:: The patient is a 74-year-old female with a past medical history significant for Insulin-dependent diabetes mellitus, hypertension, hyperlipidemia, hypothyroidism, and chronic foot wound followed by the surgical clinic who was admitted 06/14/2020 with presumed sepsis with associated hypotension, hypothermia and hypoglycemia but subsequently found to have attempted suicide by intentional insulin overdose (Lantus and Humalog) and possibly losartan. The patient initially required Levophed for blood pressure support; this has been successfully weaned off. She also required D10 maintenance fluids to maintain blood glucose with frequent correction utilizing D50 pushes. Now with stable glucose. She has been downgraded to the medical floor and care transitioned to the hospitalist team. Now medically cleared for discharge. Awaiting disposition decision per mental health services. D23 of hospital stay 07/06/20 Patient was seen and examined at bedside. She was sitting up on a chair beside her bed. Alert awake and talking and is very conversant. She admits that she still has episodes of depression but she also expressed regret about her suicide attempt and promised diet she would never ever do that again. She also relates that she loves her very much and misses him a lot, however, she also thinks that her would not approve of what she had attempted to do. Reason For Visit: SEPSIS,DIABETIC FOOT INFECTION,HYPOGLYCEMIA, Physical Exam Vital Signs: Temp Pulse Resp BP Pulse Ox 97.6 F 58 L 17 141/65 H 100 07/06/20 08:08 07/06/20 07:00 07/06/20 07:00 07/06/20 07:00 07/06/20 07:00 Intake & Output 07/05/20 07/06/20 07/07/20 06:59 06:59 06:59 Intake Total 403 091 2045 Output Total 1000 1150 Balance -520 -950 1120 Weight 58 kg 60.917 kg General appearance: PRESENT: no acute distress, cooperative Head exam: PRESENT: atraumatic Eye exam: PRESENT: EOMI, PERRLA Mouth exam: PRESENT: moist Neck exam: PRESENT: full ROM Respiratory exam: PRESENT: clear to auscultation noreen, symmetrical, unlabored Cardiovascular exam: PRESENT: RRR, +S1, +S2 Pulses: PRESENT: +2 pedal pulses bilateral GI/Abdominal exam: PRESENT: normal bowel sounds, soft. ABSENT: rebound, tenderness Extremities exam: PRESENT: full ROM Musculoskeletal exam: PRESENT: full ROM Neurological exam: PRESENT: alert, awake, oriented to person, oriented to place, oriented to time, oriented to situation Psychiatric exam: PRESENT: normal mood Skin exam: PRESENT: normal color Results Laboratory Results: 07/01/20 08:10 07/01/20 08:10 07/01/20 08:10 Blood Blood Culture - Final NO GROWTH IN 5 DAYS 07/01/20 08:10 Blood Blood Culture - Final NO GROWTH IN 5 DAYS 06/14/20 06/14/20 06/22/20 07:25 07:25 01:19 Creatine Kinase 104 Troponin I < 0.012 0.026 06/22/20 16:06 Creatine Kinase Troponin I < 0.012 Impressions: Chest X-Ray 06/14/20 07:29 IMPRESSION: NO ACUTE RADIOGRAPHIC FINDING IN THE CHEST. Head CT 06/14/20 07:31 IMPRESSION: NO ACUTE INTRACRANIAL IMAGING FINDINGS. EVIDENCE OF ACUTE STROKE: NO. Cervical Spine CT 06/14/20 07:32 IMPRESSION: Mild multilevel degenerative change without evidence of acute bony abnormality of the cervical spine. Foot X-Ray 06/14/20 09:07 IMPRESSION: 1. No definite evidence of acute bony abnormality or definitive findings of osteomyelitis. 2. Midfoot collapse with significant degenerative changes suggestive of Charcot joint. Abdomen Ultrasound 06/16/20 00:00 IMPRESSION: Limited study due to overlying bowel gas. No acute findings. The patient is status post cholecystectomy. No ductal dilatation. Lower Extremity MRI 06/22/20 00:00 IMPRESSION: Positive for osteomyelitis. Assessment and Plan - Diagnosis (1) Depression Qualifiers: Depression Type: major depressive disorder Active/Remission status: cu rrently active Major depression episode severity: severe Psychotic features: without psychotic features Is this a current diagnosis for this admission?: Yes Plan: Mental health services consulted. Medication recommendations reviewed and implemented. (2) Attempted suicide Is this a current diagnosis for this admission?: Yes Plan: Continue suicide precautions. Mental health services consulted. Have initiated medications per their recommendations; Prozac, clonidine transdermal patch, BuSpar and Haldol. Monitor QTc interval. Supportive care. (3) Drug overdose, intentional Qualifiers: Encounter type: subsequent encounter Qualified Code(s): T50.902D - Poisoning by unspecified drugs, medicaments and biological substances, intentional self-harm, subsequent encounter Is this a current diagnosis for this admission?: Yes Plan: Intentional insulin overdose. Management as outlined elsewhere. (4) Aspiration into airway Qualifiers: Encounter type: initial encounter Qualified Code(s): T17.908A - Unspecified foreign body in respiratory tract, part unspecified causing other injury, initial encounter Is this a current diagnosis for this admission?: Yes Plan: Resolved. Completed antibiotic course. Now maintaining oxygen saturations on room air. (5) Hypoglycemia associated with diabetes Is this a current diagnosis for this admission?: Yes Plan: Resolved. Hypoglycemia protocol. (6) Diabetic foot infection Is this a current diagnosis for this admission?: Yes Plan: Followed by outpatient wound care clinic. Initially was placed on Ancef/clindamycin/vancomycin for empiric antibiotic therapy. Surgery was consulted, recommended medical management and signed off. Infectious disease consulted. As per ID note she does not seem to have osteomyelitis and should be taken off of IV antibiotics. Continue wound care. (7) Hypertension Qualifiers: Hypertension type: essential hypertension Qualified Code(s): I10 - Essential (primary) hypertension Is this a current diagnosis for this admission?: Yes Plan: Normotensive. Euvolemic. Current meds. Adjust meds as needed. Outpatient PCP follow-up. (8) Hypokalemia Is this a current diagnosis for this admission?: Yes Plan: Replete. (9) Hypomagnesemia Is this a current diagnosis for this admission?: Yes Plan: Replete. (10) Hypothyroidism Qualifiers: Hypothyroidism type: acquired Qualified Code(s): E03.9 - Hypothyroidism, unspecified Is this a current diagnosis for this admission?: Yes Plan: Thyroid panel is acceptable. Continue home dose levothyroxine 75 mcg daily. - Plan Summary Summary: Patient is medically cleared for discharge to a psychiatric facility. She is receiving no intravenous medications and does not need to have a PIV in place for medical reasons, but unfortunately this is hospital policy for all patients in the hospital to have at least one PIV in place at all times. PIV will be removed prior to transfer to a psychiatric facility. COVID-19 test ordered in preparation for placement. - Time Time Spent with patient: 15-24 minutes Medications reviewed and adjusted accordingly: Yes Anticipated Discharge Disposition: TBD Anticipated Discharge Timeframe: TBD
[2020-07-06] MEDS: ATORVASTATIN CALCIUM 20 MG TABLET PO SCH (21:41)
[2020-07-07] MEDS: LEVOTHYROXINE SODIUM 0.075 MG TABLET PO SCH (05:27)
[2020-07-07] MEDS: BUSPIRONE HCL 10 MG TABLET PO SCH ×2 (09:29→22:10)
[2020-07-07] MEDS: LOSARTAN POTASSIUM 25 MG TABLET PO SCH (09:29)
[2020-07-07] MEDS: GLIPIZIDE 10 MG TABLET PO SCH ×2 (09:29→17:18)
[2020-07-07] MEDS: PRASUGREL HCL 10 MG TABLET PO SCH (09:29)
[2020-07-07] MEDS: ENOXAPARIN SODIUM INJ 40 MG/0.4 ML DISP.SYRIN SUBCUT SCH (09:29)
[2020-07-07] MEDS: FLUOXETINE HCL 20 MG/5 ML UDCUP PO SCH (09:29)
[2020-07-07] MEDS: SITAGLIPTIN PHOSPHATE 50 MG TABLET PO SCH ×2 (09:29→17:17)
[2020-07-07] MEDS: FAMOTIDINE 20 MG TABLET PO SCH ×2 (09:29→22:10)
[2020-07-07] MEDS: FOLIC ACID 1 MG TABLET PO SCH (09:29)
--- NOTE | 2020-07-07 14:00 | PDOC PROGRESS REPORT ---
Subjective Subjective:: The patient is a 74-year-old female with a past medical history significant for Insulin-dependent diabetes mellitus, hypertension, hyperlipidemia, hypothyroidism, and chronic foot wound followed by the surgical clinic who was admitted 06/14/2020 with presumed sepsis with associated hypotension, hypothermia and hypoglycemia but subsequently found to have attempted suicide by intentional insulin overdose (Lantus and Humalog) and possibly losartan. The patient initially required Levophed for blood pressure support; this has been successfully weaned off. She also required D10 maintenance fluids to maintain blood glucose with frequent correction utilizing D50 pushes. Now with stable glucose. She has been downgraded to the medical floor and care transitioned to the hospitalist team. Now medically cleared for discharge. Awaiting disposition decision per mental health services. D23 of hospital stay 07/06/20 Patient was seen and examined at bedside. She was sitting up on a chair beside her bed. Alert awake and talking and is very conversant. She admits that she still has episodes of depression but she also expressed regret about her suicide attempt and promised that she would never ever do that again. She also relates that she loves her very much and misses him a lot, however, she also thinks that her would not approve of what she had attempted to do. D24 of Hospital stay 07/07/20. Patient was seen and examined at bedside. No new complains, she has good appetite, afebrile. She wroks well with physical therapy and ambulated about 100 ft with a walker. Reason For Visit: SEPSIS,DIABETIC FOOT INFECTION,HYPOGLYCEMIA, Physical Exam Vital Signs: Temp Pulse Resp BP Pulse Ox 98.2 F 67 17 135/57 H 100 07/07/20 11:35 07/07/20 11:35 07/07/20 11:35 07/07/20 11:35 07/07/20 11:35 Intake & Output 07/06/20 07/07/20 07/08/20 06:59 06:59 06:59 Intake Total 200 2365 Output Total 1150 50 Balance -950 2365 -50 Weight 60.917 kg 60.9 kg General appearance: PRESENT: no acute distress, cooperative Head exam: PRESENT: atraumatic, normocephalic Eye exam: PRESENT: EOMI, PERRLA Mouth exam: PRESENT: moist Neck exam: PRESENT: full ROM Respiratory exam: PRESENT: clear to auscultation noreen, symmetrical, unlabored Cardiovascular exam: PRESENT: RRR, +S1, +S2 GI/Abdominal exam: PRESENT: normal bowel sounds, soft. ABSENT: rebound, tender ness Extremities exam: PRESENT: full ROM Musculoskeletal exam: PRESENT: full ROM Neurological exam: PRESENT: alert, awake, oriented to person, oriented to place, oriented to time, oriented to situation Psychiatric exam: PRESENT: normal mood Skin exam: PRESENT: normal color Results Laboratory Results: 07/01/20 08:10 07/01/20 08:10 06/14/20 06/14/20 06/22/20 07:25 07:25 01:19 Creatine Kinase 104 Troponin I < 0.012 0.026 06/22/20 16:06 Creatine Kinase Troponin I < 0.012 Impressions: Chest X-Ray 06/14/20 07:29 IMPRESSION: NO ACUTE RADIOGRAPHIC FINDING IN THE CHEST. Head CT 06/14/20 07:31 IMPRESSION: NO ACUTE INTRACRANIAL IMAGING FINDINGS. EVIDENCE OF ACUTE STROKE: NO. Cervical Spine CT 06/14/20 07:32 IMPRESSION: Mild multilevel degenerative change without evidence of acute bony abnormality of the cervical spine. Foot X-Ray 06/14/20 09:07 IMPRESSION: 1. No definite evidence of acute bony abnormality or definitive findings of osteomyelitis. 2. Midfoot collapse with significant degenerative changes suggestive of Charcot joint. Abdomen Ultrasound 06/16/20 00:00 IMPRESSION: Limited study due to overlying bowel gas. No acute findings. The patient is status post cholecystectomy. No ductal dilatation. Lower Extremity MRI 06/22/20 00:00 IMPRESSION: Positive for osteomyelitis. Assessment and Plan - Diagnosis (1) Attempted suicide Is this a current diagnosis for this admission?: Yes Plan: Continue suicide precautions. Mental health services consulted. Have initiated medications per their recommendations; Prozac, clonidine transdermal patch, BuSpar and Haldol. Monitor QTc interval. Supportive care. (2) Depression Qualifiers: Depression Type: major depressive disorder Active/Remission status: currently active Major depression episode severity: severe Psychotic features: without psychotic features Is this a current diagnosis for this admission?: Yes Plan: Mental health services consulted. Medication recommendations reviewed and implemented. (3) Drug overdose, intentional Qualifiers: Encounter type: subsequent encounter Qualified Code(s): T50.902D - Poisoning by unspecified drugs, medicaments and biological substances, intentional self-harm, subsequent encounter Is this a current diagnosis for this admission?: Yes Plan: Intentional insulin overdose. Management as outlined elsewhere. (4) Aspiration into airway Qualifiers: Encounter type: initial encounter Qualified Code(s): T17.908A - Unspecified foreign body in respiratory tract, part unspecified causing other injury, initial encounter Is this a current diagnosis for this admission?: Yes Plan: Resolved. Completed antibiotic course. Now maintaining oxygen saturations on room air. (5) Hypoglycemia associated with diabetes Is this a current diagnosis for this admission?: Yes Plan: Resolved. Hypoglycemia protocol. (6) Diabetic foot infection Is this a current diagnosis for this admission?: Yes Plan: Followed by outpatient wound care clinic. Initially was placed on Ancef/clindamycin/vancomycin for empiric antibiotic therapy. Surgery was consulted, recommended medical management, surgery not indicated at this time Infectious disease consulted and they recommend no antibiotics for the wound, would need a wound care clinic follow up. (7) Hypertension Qualifiers: Hypertension type: essential hypertension Qualified Code(s): I10 - Essential (primary) hypertension Is this a current diagnosis for this admission?: Yes Plan: Normotensive. Euvolemic. Current meds. Adjust meds as needed. Outpatient PCP follow-up. (8) Hypokalemia Is this a current diagnosis for this admission?: Yes Plan: - K 4.8 has not needed to be repleted for several days (9) Hypomagnesemia Is this a current diagnosis for this admission?: Yes Plan: - Normal level (10) Hypothyroidism Qualifiers: Hypothyroidism type: acquired Qualified Code(s): E03.9 - Hypothyroidism, unspecified Is this a current diagnosis for this admission?: Yes Plan: - Thyroid panel is acceptable. - Continue home dose levothyroxine 75 mcg daily. (11) Diabetes Qualifiers: Diabetes mellitus alf insulin use: with intermediate card tender use Diabetes mellitus complication status: with skin complications Diabetes mellitus complication detail: with foot ulcer Is this a current diagnosis for this admission?: Yes Plan: A1c (05/13/2020) 7.0%. Well-controlled. Renal function is WNL. Patient could be managed with oral hypoglycemic given attempted suicide with Lantus. Patient is started on sitagliptin 50 mg p.o. daily. Glipizide 5 mg p.o. twice daily. She does not want to be started on Metformin as she did not tolerate it very well. Hypoglycemia protocol. (12) Sacral decubitus ulcer, stage II Is this a current diagnosis for this admission?: Yes Plan: Stage II decubitus ulcer in the sacral area, no sign of infection. Encourage ambulation, frequent positioning, care consult and wound care. - Plan Summary Summary: Patient is medically cleared for discharge to a psychiatric facility. She is receiving no intravenous medications and does not need to have a PIV in place for medical reasons, but unfortunately this is hospital policy for all patients in the hospital to have at least one PIV in place at all times. PIV will be removed prior to transfer to a psychiatric facility. Green catheter has been removed and she has been voiding spontaneously. COVID-19 test ordered in preparation for placement. - Time Time Spent with patient: 35 or more minutes Medications reviewed and adjusted accordingly: Yes Anticipated Discharge Disposition: Psych Hospital/Unit Anticipated Discharge Timeframe: TBD
--- NOTE | 2020-07-07 17:32 | PDOC CONSULTATION ---
Consultation-Blank Consultation: Behavioral Health Consult: Re Evaluation Presenting Problem: FULL Involuntary Commitment for suicide attempt via overdosing on Diabetic medication, leaving a suicide note, and having pamphlet information. IVC was renewed 07/01/2020 and will tomorrow (07/08/2020). Participated and advocated for patient during the Interdisciplinary Team Meeting today from [phone]. From that meeting per Hospitalist patient is "just being treated for chronic medical issues and nothing acute at this point." Other medical staff report included but not limited to the next information. Patient has been pleasant. She walked 140 feet during PT today but is felt to be "more stable with utilization of walker versus without." She got new insoles for her shoes. Uncertain if she would actually qualify for short term rehabilitation. Decided would at the very least try Involuntary Commitment referral to both [facility] and [facility] given felt to be at baseline medically. Coordinated with both [facility] and [facility] on referral and placement efforts. Check in with patient from [phone]. Patient was sitting in the chair in the corner of her room, TV was NOT on, and she was staring ahead. When this clinician introduced self patient was immediate in response. She even smiled and said hello. She reported "I am feeling pretty good." She reported "I still have the suicidal thoughts here and there, it kind of scares me." She then went on to say "I know I'll never do that again." When asked how she knows that she responded "I just know, I never want to put myself or anyone else through this, it's just something I feel." Shed denied current suicidal thoughts. When asked if she'd like the TV on she said "no, I just can't concentrate, plus there's a lot of reruns or the same thing on, sometimes I just like to sit quietly." She noted at home she does watch TV and likes to. When asked if she recalled what she was thinking prior to this clinician coming into the room she said "no, was just doing my exercises where I squeeze my knees together and another one." She confirmed PT showed her different exercises to do, she stated "I walked a lot today, it was hard." Following evaluation with patient this clinician spoke to the Patient Production Packager about patient's routine. She stated "in the morning patient eats breakfast while watching TV, then she will sit awhile without the TV on, then eats lunch and watches TV, and after lunch will just sit like you observed her when you walked in." Clinical Presentation: Suicidal Ideation via Overdose of Diabetic medication Suicidal ideation with note and pamphlet from home indicating desire for cremation Uncomplicated Bereavement: 7 years ago, may was his birthday, june is anniversary of his Impression/Plan: Recommendation to maintain FULL Involuntary Commitment. An Interdisciplinary Team Meeting took place late afternoon. There are still concerns with respect to patient being high risk in terms of mental health/suicidal ideation given attempt, recent anniversaries related to who is , the Holiday season, and her being honest with medical and behavioral health staff regarding suicidal ideation first starting this past Sunday. Made Involuntary Commitment Inpatient referrals to [facility] and [facility] today to try at placement efforts now that patient is felt to be at baseline medically (Chronic versus Acute issues at this point). Consulted with Dr. Izquierdo regarding the management and care of patient. Hospitalist aware of recommendations.
[2020-07-07] MEDS: ATORVASTATIN CALCIUM 20 MG TABLET PO SCH (22:10)
[2020-07-08] MEDS: LEVOTHYROXINE SODIUM 0.075 MG TABLET PO SCH (05:42)
[2020-07-08] MEDS: SITAGLIPTIN PHOSPHATE 50 MG TABLET PO SCH ×2 (08:48→19:17)
[2020-07-08] MEDS: GLIPIZIDE 10 MG TABLET PO SCH ×2 (08:48→19:17)
[2020-07-08] MEDS: FLUOXETINE HCL 20 MG/5 ML UDCUP PO SCH (11:12)
[2020-07-08] MEDS: FOLIC ACID 1 MG TABLET PO SCH (11:14)
[2020-07-08] MEDS: PRASUGREL HCL 10 MG TABLET PO SCH (11:14)
[2020-07-08] MEDS: FAMOTIDINE 20 MG TABLET PO SCH ×2 (11:15→22:18)
[2020-07-08] MEDS: LOSARTAN POTASSIUM 25 MG TABLET PO SCH (11:15)
[2020-07-08] MEDS: BUSPIRONE HCL 10 MG TABLET PO SCH ×2 (11:15→22:16)
[2020-07-08] MEDS: ENOXAPARIN SODIUM INJ 40 MG/0.4 ML DISP.SYRIN SUBCUT SCH (11:16)
--- NOTE | 2020-07-08 14:31 | PDOC CONSULTATION ---
Consultation-Blank Consultation: Behavioral Health Consult: Re Evaluation Presenting Problem: FULL Involuntary Commitment for suicide attempt via overdosing on Diabetic medication, leaving a suicide note, and having pamphlet information. IVC was renewed today (07/08/2020). Continued coordination with both [facility] and [facility] on referral and placement efforts. [facility] denied. [facility] still reviewing but have confirmed receipt of full referral packet. Observed patient around noon. She was sitting in her chair in the corner of her room, staring off, without TV on. She stayed that way for the 10-15 minutes this clinician was speaking with her attending nurse about plan of care. Check in with patient from [phone]. Patient was sitting in the chair in the corner of her room. She had asked the Patient Geotechnicial Properties Technician for assistance with the TV. This clinician said hello and Happy Thanksgiving. Patient smiled, said "thank you dear and to you as well." She stated "I feel better today." She denied having any current thoughts or feelings of wanting to hurt/harm/self. She stated she was "just worried about where she is going next." She acknowledged she does think about her a lot this time of year (his Birthday was mid May 2018, 8 year anniversary of his was 06/29/2020, today is Thanksgiving and the Holiday season in general). Clinical Presentation: Suicidal Ideation via Overdose of Diabetic medication Suicidal ideation with note and pamphlet from home indicating desire for cremation Uncomplicated Bereavement: 7 years ago, may was his birthday, june is anniversary of his Impression/Plan: Recommendation to maintain FULL Involuntary Commitment. There are still concerns with respect to patient being high risk in terms of mental health/suicidal ideation given attempt, recent anniversaries related to who is , the Holiday season, and her being honest with medical and behavioral health staff regarding suicidal ideation first starting this past Sunday. It is felt patient's presenting concern is related to uncomplicated bereavement which has caused the depression. The resubmitted referral dispositions are [facility] denied and [facility] is still re viewing. Consulted with Dr. Izquierdo regarding the management and care of patient. Hospitalist aware of recommendations.
--- NOTE | 2020-07-08 18:14 | PDOC PROGRESS REPORT ---
Subjective Date:: 07/08/20 Subjective:: The patient is a 74-year-old female with a past medical history significant for Insulin-dependent diabetes mellitus, hypertension, hyperlipidemia, hypothyroidism, and chronic foot wound followed by the surgical clinic who was admitted 06/14/2020 with presumed sepsis with associated hypotension, hypothermia and hypoglycemia but subsequently found to have attempted suicide by intentional insulin overdose (Lantus and Humalog) and possibly losartan. The patient initially required Levophed for blood pressure support; this has been successfully weaned off. She also required D10 maintenance fluids to maintain blood glucose with frequent correction utilizing D50 pushes. Now with stable glucose. She has been downgraded to the medical floor and care transitioned to the hospitalist team. Now medically cleared for discharge. Awaiting disposition decision per mental health services. D23 of hospital stay 07/06/20 Patient was seen and examined at bedside. She was sitting up on a chair beside her bed. Alert awake and talking and is very conversant. She admits that she still has episodes of depression but she also expressed regret about her suicide attempt and promised that she would never ever do that again. She also relates that she loves her very much and misses him a lot, however, she also thinks that her would not approve of what she had attempted to do. D24 of Hospital stay 07/07/20. Patient was seen and examined at bedside. No new complains, she has good appetite, afebrile. She wroks well with physical therapy and ambulated about 100 ft with a walker. D25 of Hospital stay 07/08/20. Patient was seen and examined at bedside. She was on her bed trying to sleep when I walked in the room and she was pleasant when I greeted her Happy Thanksgiving. When I asked about her mood she states that its much better and she currently does not have any suicidal thoughts and she again stated that "I would never, ever do that again". She expressed concern about where she would go next and said that she does not want her friends to worry about her. she denies any physical complains and her appetite has been good. Reason For Visit: SEPSIS,DIABETIC FOOT INFECTION,HYPOGLYCEMIA, Physical Exam Vital Signs: Temp Pulse Resp BP Pulse Ox 97.9 F 60 16 145/57 H 100 07/08/20 11:27 07/08/20 11:27 07/08/20 11:27 07/08/20 11:27 07/08/20 11:27 Intake & Output 07/07/20 07/08/20 07/09/20 06:59 06:59 06:59 Intake Total 2365 600 Output Total 500 Balance 2365 -500 600 Weight 60.9 kg 59.1 kg General appearance: PRESENT: no acute distress, cooperative Head exam: PRESENT: atraumatic, normocephalic Eye exam: PRESENT: EOMI, PERRLA Mouth exam: PRESENT: moist Neck exam: PRESENT: full ROM Respiratory exam: PRESENT: clear to auscultation noreen, symmetrical, unlabored Cardiovascular exam: PRESENT: RRR, +S1, +S2 Pulses: PRESENT: +2 pedal pulses bilateral GI/Abdominal exam: PRESENT: normal bowel sounds, soft. ABSENT: rebound, tenderness Extremities exam: PRESENT: full ROM Musculoskeletal exam: PRESENT: full ROM Neurological exam: PRESENT: alert, awake, oriented to person, oriented to place, oriented to time, oriented to situation Psychiatric exam: PRESENT: normal mood Skin exam: PRESENT: normal color Results Laboratory Results: 07/01/20 08:10 07/01/20 08:10 06/14/20 06/14/20 06/22/20 07:25 07:25 01:19 Creatine Kinase 104 Troponin I < 0.012 0.026 06/22/20 16:06 Creatine Kinase Troponin I < 0.012 Impressions: Chest X-Ray 06/14/20 07:29 IMPRESSION: NO ACUTE RADIOGRAPHIC FINDING IN THE CHEST. Head CT 06/14/20 07:31 IMPRESSION: NO ACUTE INTRACRANIAL IMAGING FINDINGS. EVIDENCE OF ACUTE STROKE: NO. Cervical Spine CT 06/14/20 07:32 IMPRESSION: Mild multilevel degenerative change without evidence of acute bony abnormality of the cervical spine. Foot X-Ray 06/14/20 09:07 IMPRESSION: 1. No definite evidence of acute bony abnormality or definitive findings of osteomyelitis. 2. Midfoot collapse with significant degenerative changes suggestive of Charcot joint. Abdomen Ultrasound 06/16/20 00:00 IMPRESSION: Limited study due to overlying bowel gas. No acute findings. The patient is status post cholecystectomy. No ductal dilatation. Lower Extremity MRI 06/22/20 00:00 IMPRESSION: Positive for osteomyelitis. Assessment and Plan - Diagnosis (1) Attempted suicide Is this a current diagnosis for this admission?: Yes Plan: Continue suicide precautions. Mental health services consulted. Have initiated medications per their recommendations; Prozac, clonidine transdermal patch, BuSpar and Haldol. Monitor QTc interval. Supportive care. (2) Depression Qualifiers: Depression Type: major depressive disorder Active/Remission status: currently active Major depression episode severity: severe Psychotic features: without psychotic features Is this a current diagnosis for this admission?: Yes Plan: Mental health services consulted. Medication recommendations reviewed and implemented. (3) Drug overdose, intentional Qualifiers: Encounter type: subsequent encounter Qualified Code(s): T50.902D - Poisoning by unspecified drugs, medicaments and biological substances, intentional self-harm, subsequent encounter Is this a current diagnosis for this admission?: Yes Plan: Intentional insulin overdose. Management as outlined elsewhere. (4) Aspiration into airway Qualifiers: Encounter type: initial encounter Qualified Code(s): T17.908A - Unspecified foreign body in respiratory tract, part unspecified causing other injury, initial encounter Is this a current diagnosis for this admission?: Yes Plan: Resolved. Completed antibiotic course. Now maintaining oxygen saturations on room air. (5) Hypoglycemia associated with diabetes Is this a current diagnosis for this admission?: Yes Plan: Resolved. Hypoglycemia protocol. (6) Diabetic foot infection Is this a current diagnosis for this admission?: Yes Plan: Followed by outpatient wound care clinic. Initially was placed on Ancef/clindamycin/vancomycin for empiric antibiotic therapy. Surgery was consulted, recommended medical management, surgery not indicated at this time Infectious disease consulted and they recommend no antibiotics for the wound, would need a wound care clinic follow up. (7) Hypertension Qualifiers: Hypertension type: essential hypertension Qualified Code(s): I10 - Essential (primary) hypertension Is this a current diagnosis for this admission?: Yes Plan: Normotensive. Euvolemic. Current meds. Adjust meds as needed. Outpatient PCP follow-up. (8) Hypokalemia Is this a current diagnosis for this admission?: Yes Plan: - K 4.8 has not needed to be repleted for several days (9) Hypomagnesemia Is this a current diagnosis for this admission?: Yes Plan: - Normal level (10) Hypothyroidism Qualifiers: Hypothyroidism type: acquired Qualified Code(s): E03.9 - Hypothyroidism, un specified Is this a current diagnosis for this admission?: Yes Plan: - Thyroid panel is acceptable. - Continue home dose levothyroxine 75 mcg daily. (11) Diabetes Qualifiers: Diabetes mellitus care home insulin use: with intermediate project manager use Diabetes mellitus complication status: with skin complications Diabetes mellitus complication detail: with foot ulcer Is this a current diagnosis for this admission?: Yes Plan: A1c (05/13/2020) 7.0%. Well-controlled. Renal function is WNL. Patient could be managed with oral hypoglycemic given attempted suicide with Lantus. Patient is started on sitagliptin 50 mg p.o. daily. Glipizide 5 mg p.o. twice daily. She does not want to be started on Metformin as she did not tolerate it very well. Hypoglycemia protocol. (12) Sacral decubitus ulcer, stage II Is this a current diagnosis for this admission?: Yes Plan: Stage II decubitus ulcer in the sacral area, no sign of infection. Encourage ambulation, frequent positioning, care consult and wound care. - Plan Summary Summary: Patient is medically cleared for discharge to a psychiatric facility. She is receiving no intravenous medications and does not need to have a PIV in place for medical reasons, but unfortunately this is hospital policy for all patients in the hospital to have at least one PIV in place at all times. PIV will be removed prior to transfer to a psychiatric facility. Green catheter has been removed and she has been voiding spontaneously. COVID-19 test ordered in pr eparation for placement. - Time Time Spent with patient: 15-24 minutes Medications reviewed and adjusted accordingly: Yes Anticipated Discharge Disposition: Psych Hospital/Unit Anticipated Discharge Timeframe: TBD
[2020-07-08] MEDS: ATORVASTATIN CALCIUM 20 MG TABLET PO SCH (22:18)
[2020-07-09] MEDS: LEVOTHYROXINE SODIUM 0.075 MG TABLET PO SCH (05:04)
[2020-07-09] MEDS: PRASUGREL HCL 10 MG TABLET PO SCH (08:59)
[2020-07-09] MEDS: LOSARTAN POTASSIUM 25 MG TABLET PO SCH (08:59)
[2020-07-09] MEDS: SITAGLIPTIN PHOSPHATE 50 MG TABLET PO SCH ×2 (09:00→17:03)
[2020-07-09] MEDS: FLUOXETINE HCL 20 MG/5 ML UDCUP PO SCH (09:00)
[2020-07-09] MEDS: FAMOTIDINE 20 MG TABLET PO SCH (09:00)
[2020-07-09] MEDS: GLIPIZIDE 10 MG TABLET PO SCH ×2 (09:00→17:02)
[2020-07-09] MEDS: FOLIC ACID 1 MG TABLET PO SCH (09:00)
[2020-07-09] MEDS: BUSPIRONE HCL 10 MG TABLET PO SCH (09:00)
[2020-07-09] MEDS: CLONIDINE 0.1 MG/24 HR PATCH.TDWK TD SCH (09:01)
[2020-07-09] MEDS: ENOXAPARIN SODIUM INJ 40 MG/0.4 ML DISP.SYRIN SUBCUT SCH (09:01)
--- NOTE | 2020-07-09 14:21 | PDOC CONSULTATION ---
Consultation-Blank Consultation: 1135 Zackary Chaudhari with [facility] contacted clinician to disclose patient has been clinically approved for acceptance. Currently, they are waiting for a bed assignment. They request patient to have Covid test completed again today due to hospital policy for them is Covid testing within the last 48 hours. 1140 Clinician contacted attending physician to request rapid Covid 1419 Faxed updated Covid results 1426 Clinician contacted Zackary Chaudhari ([phone]) with [facility]. he confirms he is received fax and provides excepting physician as Dr. Ruslan Suárez with call report for nurse to nurse at [phone]. [facility] attending nurse can speak directly with assigned nurse Maria Teresa Bourne of [facility]. [phone] Faxed transport request; received success confirmation [phone] contacted attending physcian to update acceptance and provided accepting physician name. Took patient's transport pack to 2nd floor to attending nurse and answered any questions. Spoke with patient to provider update and answer any questions. 1528 Contacted group art supervisor department; clinician notes, they had to look on fax machine for request. Once checked, they confirmed they have received transport request. They report they will contact the Lieutenant to notified him. Unknown ETA at this time 1546 Clinician received call from attending nurse. Patient is requesting clinician contact roommate to provide update. 1553 Clinician attempted contacted with Elaina ([phone]) patient's roommate at patient's request to provide update; left message.
--- NOTE | 2020-07-09 15:36 | PDOC TRANSFER SUMMARY ---
General Admission Date/PCP: 06/14/20 13:07 PRADIP FONG PA-C Admission Date: 06/15/20 Transfer Date: 07/09/20 Accepting Facility: Other (Comments) Accepting Physician: Dr. Ruslan gonzales Resuscitation Status: Full Code - Transfer Diagnosis (1) Diabetes Is this a current diagnosis for this admission?: Yes Diagnosis Summary: - A1c (05/13/2020) 7.0%. Well-controlled. Renal function is WNL. Patient could be managed with oral hypoglycemic given attempted suicide with Lantus. Patient is started on sitagliptin 50 mg p.o. daily. Glipizide 5 mg p.o. twice daily. She does not want to be started on Metformin as she did not tolerate it very well. Hypoglycemia protocol. (2) Attempted suicide Is this a current diagnosis for this admission?: Yes Diagnosis Summary: Patient was admitted on 06/15/20 due to attempted suicide with Insulin and possibly losartan. She has no prior psychiatric history. She was initially a dmitted in the ICU because she required levophed for pressure support and was eventually weaned off. She was transferred out of the ICU to floors on 06/18/20. Psych service has been following her and she was started on Fluoxetine and Buspirone. (3) Depression Is this a current diagnosis for this admission?: Yes Diagnosis Summary: - currently on Prozac and buspar (4) Drug overdose, intentional Is this a current diagnosis for this admission?: Yes Diagnosis Summary: - overdosed on Insulin (lantus and humalog) and possibly losartan - currently with stable BG (5) Aspiration into airway Is this a current diagnosis for this admission?: Yes Diagnosis Summary: Resolved. Completed antibiotic course. Now maintaining oxygen saturations on room air. (6) Hypoglycemia associated with diabetes Is this a current diagnosis for this admission?: Yes Diagnosis Summary: resolved (7) Diabetic foot infection Is this a current diagnosis for this admission?: Yes Diagnosis Summary: Followed by outpatient wound care clinic. Initially was placed on Ancef/clindamycin/vancomycin for empiric antibiotic therapy. Surgery was consulted, recommended medical management and signed off. Infectious disease consulted. As per ID note she does not seem to have osteomyelitis and should be taken off of IV antibiotics. Continue wound care. (8) Hypertension Is this a current diagnosis for this admission?: Yes Diagnosis Summary: - on Losartan and clonidine (9) Hypokalemia Is this a current diagnosis for this admission?: Yes Diagnosis Summary: resolved (10) Hypomagnesemia Is this a current diagnosis for this admission?: Yes Diagnosis Summary: resolved (11) Hypothyroidism Is this a current diagnosis for this admission?: Yes Diagnosis Summary: Thyroid panel is acceptable. Continue home dose levothyroxine 75 mcg daily. (12) Sacral decubitus ulcer, stage II Is this a current diagnosis for this admission?: Yes Diagnosis Summary: - wound dressing per wound care instructions - Transfer Medications Home Medications: Atorvastatin Calcium [Lipitor 20 mg Tablet] 20 mg PO QHS 06/14/20 Folic Acid [Folvite 1 mg Tablet] 1 mg PO DAILY 06/14/20 Levothyroxine Sodium [Synthroid 0.075 mg Tablet] 0.075 mg PO Q6AM 06/14/20 Losartan/Hydrochlorothiazide [Losartan-Hctz 50-12.5 mg Tab] 1 each PO DAILY 06/14/20 Magnesium Oxide [Mag-Ox 400 mg Tablet] 400 mg PO DAILY 06/14/20 Prasugrel HCl [Effient 10 mg Tablet] 10 mg PO DAILY 06/14/20 Transfer Medications: Current Medications Acetaminophen (Tylenol 325 Mg Tablet) 650 mg PO Q4HP PRN PRN Reason: FOR HEADACHE Stop: 07/14/20 11:43 Last Admin: 06/24/20 20:31 Dose: 650 mg Documented by: Atorvastatin Calcium (Lipitor 20 Mg Tablet) 20 mg PO QHS GENE Stop: 07/16/20 21:59 Last Admin: 07/08/20 22:18 Dose: 20 mg Documented by: Bisacodyl (Bisacodyl 5 Mg Tabec) 5 mg PO DAILYP PRN PRN Reason: UNRESOLVED CONSTIPATION Stop: 07/28/20 13:24 Buspirone HCl (Buspar 10 Mg Tablet) 5 mg PO Q12 GENE Stop: 07/18/20 21:59 Last Admin: 07/09/20 09:00 Dose: 5 mg Documented by: Clonidine HCl (Clonidine 0.1 Mg/24 Hr Patch.Tdwk) 1 each TD Fr@10 GENE Stop: 08/01/20 18:29 Last Admin: 07/09/20 09:01 Dose: 1 each Documented by: Enoxaparin Sodium (Lovenox Inj 40 Mg/0.4 Ml Disp.Syrin) 40 mg SUBCUT DAILY GENE Stop: 07/14/20 11:59 Last Admin: 07/09/20 09:01 Dose: 40 mg Documented by: Famotidine (Pepcid 20 Mg Tablet) 20 mg PO Q12 GENE Stop: 07/23/20 09:59 Last Admin: 07/09/20 09:00 Dose: 20 mg Documented by: Fluoxetine HCl (Fluoxetine Hcl 20 Mg/5 Ml Udcup) 20 mg PO DAILY GENE Stop: 08/04/20 09:59 Last Admin: 07/09/20 09:00 Dose: 20 mg Documented by: Folic Acid (Folvite 1 Mg Tablet) 1 mg PO DAILY GENE Stop: 07/16/20 09:59 Last Admin: 07/09/20 09:00 Dose: 1 mg Documented by: Glipizide (Glucotrol 10 Mg Tablet) 10 mg PO BIDACBS [facility] Stop: 07/27/20 09:59 Last Admin: 07/09/20 09:00 Dose: 10 mg Documented by: Levothyroxine Sodium (Synthroid 0.075 Mg Tablet) 0.075 mg PO Q6AM GENE Stop: 07/17/20 05:59 Last Admin: 07/09/20 05:04 Dose: 0.075 mg Documented by: Losartan Potassium (Losartan Potassium 25 Mg Tablet) 25 mg PO DAILY [facility] Stop: 08/02/20 10:59 Last Admin: 07/09/20 08:59 Dose: 25 mg Documented by: Magnesium Hydroxide (Magnesium Hydroxide Susp 30 Ml Udcup) 30 ml PO DAILYP PRN PRN Reason: FOR CONSTIPATION Stop: 07/28/20 13:24 Ondansetron HCl (Zofran Odt 4 Mg Tablet) 4 mg PO Q4HP PRN PRN Reason: FOR NAUSEA/VOMITING Stop: 07/27/20 12:05 Polyethylene Glycol (Polyethylene Glycol 3350 Powder 17 Gm/1 Packet) 17 gm PO DAILYP PRN PRN Reason: FOR CONSTIPATION Stop: 07/28/20 13:24 Prasugrel (Effient 10 Mg Tablet) 10 mg PO DAILY [facility] Stop: 07/16/20 09:59 Last Admin: 07/09/20 08:59 Dose: 10 mg Documented by: Sitagliptin Phosphate (Januvia 50 Mg Tablet) 50 mg PO BIDACBS [facility] Stop: 07/25/20 15:59 Last Admin: 07/09/20 09:00 Dose: 50 mg Documented by: - Allergies Allergies/Adverse Reactions: bacitracin [From Neosporin ([id number])] Allergy (Verified 06/14/20 08:55) neomycin [From Neosporin ([id number])] Allergy (Verified 06/14/20 08:55) Penicillins Allergy (Verified 06/14/20 08:55) polymyxin B [From Neosporin ([id number])] Allergy (Verified 06/14/20 08:55) Hospital Course Hospital Course: The patient is a 74-year-old female with a past medical history significant for Insulin-dependent diabetes mellitus, hypertension, hyperlipidemia, hypothyroidism, and chronic foot wound followed by the surgical clinic who was admitted 06/14/2020 with presumed sepsis with associated hypotension, hypothermia and hypoglycemia but subsequently found to have attempted suicide by intentional insulin overdose (Lantus and Humalog) and possibly losartan. The patient initially required Levophed for blood pressure support; this has been successfully weaned off. She also required D10 maintenance fluids to maintain blood glucose with frequent correction utilizing D50 pushes. Now with stable glucose.She was initially in the ICU where psych service was consulted and she was placed on IVC. She was transferred to a regular room on 06/18/20. Surgery was consulted regarding her Diabetic foot wound and they deemed that she does not need any debridement. Infectious disease was consulted as well and they recommend to antibiotic treatment and to continue wound care. She has been downgraded to the medical floor and care transitioned to the hospitalist team. Now medically cleared for discharge. Physical Exam Vital Signs: Temp Pulse Resp BP Pulse Ox 97.6 F 66 16 142/55 H 100 07/09/20 11:18 07/09/20 11:18 07/09/20 11:18 07/09/20 11:18 07/09/20 11:18 Intake & Output 07/08/20 07/09/20 07/10/20 06:59 06:59 06:59 Intake Total 900 Output Total 500 Balance -500 900 Weight 59.1 kg 62.142 kg General appearance: PRESENT: no acute distress, cooperative Head exam: PRESENT: atraumatic, normocephalic Eye exam: PRESENT: EOMI, PERRLA Mouth exam: PRESENT: moist Neck exam: PRESENT: full ROM Respiratory exam: PRESENT: clear to auscultation noreen, symmetrical, unlabored Cardiovascular exam: PRESENT: RRR, +S1, +S2 Pulses: PRESENT: +2 pedal pulses bilateral GI/Abdominal exam: PRESENT: normal bowel sounds, soft. ABSENT: rebound, tenderness Extremities exam: PRESENT: full ROM Musculoskeletal exam: PRESENT: full ROM Neurological exam: PRESENT: alert, awake, oriented to person, oriented to place, oriented to time, oriented to situation Psychiatric exam: PRESENT: depressed Skin exam: PRESENT: normal color Results Laboratory Results: 07/01/20 08:10 07/01/20 08:10 06/14/20 06/14/20 06/22/20 07:25 07:25 01:19 Creatine Kinase 104 Troponin I < 0.012 0.026 06/22/20 16:06 Creatine Kinase Troponin I < 0.012 Impressions: Chest X-Ray 06/14/20 07:29 IMPRESSION: NO ACUTE RADIOGRAPHIC FINDING IN THE CHEST. Head CT 06/14/20 07:31 IMPRESSION: NO ACUTE INTRACRANIAL IMAGING FINDINGS. EVIDENCE OF ACUTE STROKE: NO. Cervical Spine CT 06/14/20 07:32 IMPRESSION: Mild multilevel degenerative change without evidence of acute bony abnormality of the cervical spine. Foot X-Ray 06/14/20 09:07 IMPRESSION: 1. No definite evidence of acute bony abnormality or definitive findings of osteomyelitis. 2. Midfoot collapse with significant degenerative changes suggestive of Charcot joint. Abdomen Ultrasound 06/16/20 00:00 IMPRESSION: Limited study due to overlying bowel gas. No acute findings. The patient is status post cholecystectomy. No ductal dilatation. Lower Extremity MRI 06/22/20 00:00 IMPRESSION: Positive for osteomyelitis. Plan Discharge Plan: Patient to be transferred to a Psych facility for continued care. Time Spent: Greater than 30 Minutes
[2020-07-09 17:42] VITALS: BP 150/63
== END 2020-07-09 17:59 | DRG 918 ==
LOC: ER 07:18 → EH 13:07 → ICU 14:36 → 5 06-18 16:48 → 2S 06-30 18:31
PROVIDERS: ADMIT Anesthesiology; ATTEND Internal Medicine
PROC: B24BZZ4 Ultrasonography of Heart with Aorta, Transesophageal (ICD-10-PCS; principal; 2020-06-15)
DX: T38.3X2A Poisoning by insulin and oral hypoglycemic [antidiabetic] drugs, intentional self-harm, initial encounter (principal); E11.649 Type 2 diabetes mellitus with hypoglycemia without coma; F32.9 Major depressive disorder, single episode, unspecified; Z20.828 Contact with and (suspected) exposure to other viral communicable diseases; T46.5X2A Poisoning by other antihypertensive drugs, intentional self-harm, initial encounter; I10 Essential (primary) hypertension; Y92.9 Unspecified place or not applicable; E87.6 Hypokalemia; E78.5 Hyperlipidemia, unspecified; E83.42 Hypomagnesemia; E03.9 Hypothyroidism, unspecified; E11.621 Type 2 diabetes mellitus with foot ulcer; H54.62 Unqualified visual loss, left eye, normal vision right eye; L89.152 Pressure ulcer of sacral region, stage 2; L97.512 Non-pressure chronic ulcer of other part of right foot with fat layer exposed; E11.40 Type 2 diabetes mellitus with diabetic neuropathy, unspecified; X58.XXXA Exposure to other specified factors, initial encounter; T17.908A Unspecified foreign body in respiratory tract, part unspecified causing other injury, initial encounter; T68.XXXA Hypothermia, initial encounter; E11.610 Type 2 diabetes mellitus with diabetic neuropathic arthropathy; R33.9 Retention of urine, unspecified; N32.81 Overactive bladder; Z79.899 Other long term (current) drug therapy; Z79.890 Hormone replacement therapy; Z88.1 Allergy status to other antibiotic agents; Z88.0 Allergy status to penicillin; Z89.432 Acquired absence of left foot; Z89.421 Acquired absence of other right toe(s); Z79.4 Long term (current) use of insulin
CPT/HCPCS: 36415; 51702; 70450; 71045; 72125; 76700; 80048; 80053; 80202; 81001; 82533; 82550; 82803; 82962; 83605; 83735; 84100; 84145; 84439; 84443; 84481; 84484; 85025; 85027; 85610; 87040; 87070; 87086; 87088; 87186; 87205; 87635; 93005; 93010; 93306; 96365; 96375; 96376; 99221; 99285; 99291; J0610; 0241U; C9113; C9803; J0690; J0743; J1630; J1650; J1815; J2020; J2405; J2765; J3370; J3475; J3480; J3490; J7030; J7042; J7050; J7060; J7120; S0028; S0119